=== PATIENT | male | born 1960 | race Caucasian/White ===

== ENCOUNTER 2024-03-07 22:18 | Inpatient (IN) | payer OTHER, SELFPAY ==
[2024-03-07] VITALS (15 sets, daily range): BP systolic 95–140; BP diastolic 74–116; PULSE 2; BMI 30.3; BMI 29.8
--- NOTE | 2024-03-07 20:24 | ED.GENMED ---
History of Present Illness
General
Chief Complaint: Chest Pain
Source: patient
Exam Limitations: none
Time Seen by Provider: 03/07/24 20:20
History of Present Illness
History of Present Illness:
See MDM
Past History
Past History
ED Past Medical History: Arrthythmia (Ventricular tachycardia;? Atrial fibrillation), CAD, CHF, COPD, HTN, Hypercholesterolemia, NIDDM and SC
ED Past Surgical History: Cardiac (Pacemaker)
Social History
Tobacco: Smoker
Alcohol: None
Drug: None
Living: other (living in a hotel for last month)
Employment: Other (unavailable)
Family History
Family History: Other (reviewed and noncontributory)
Phy Exam
Physical Exam
Physical Exam:
See MDM
Scores
Heart Score for Chest Pain Patients
STEMI patient?: No
History: Highly Suspicious
ECG: Significant ST-Depression
Age: >45 - <65 years
Risk Factors: >/= 3 Risk Factors or History of CAD
Troponin: >/= 3 x Normal Limit
Heart Score for Chest Pain Patients: 9
Heart Score Risk: 72.7 % MACE over next 6 weeks
Course
Orders/Labs/Results
Orders:
Orders
03/07/24 Dinner
NPO
Allow oral meds: Yes
Allow clear liquids: Sips of Clears
03/07/24 20:06
Electrocardiogram (*1) Urgent
Reason for Study: Chest Pain
Cardiac Monitoring- Treatment ONCE
EKG- Treatment ONCE
IV Insert/Care/Rem.- Treatment PRN
O2 Therapy [RESP] Urgent
Titrate/Wean O2 to maintain O2 sat greater than (%): 90
Special Instructions: Maintain sats >/=90%
Pulse Ox/spot Check [RESP] Urgent
Quantity: 1
Special Instructions: ON ROOM AIR
03/07/24 20:19
Complete Blood Count/With Diff Urgent
Comprehensive Metabolic Panel Urgent
NT-proBNP Urgent
Comment: ADD ON
Troponin I Urgent
03/07/24 20:23
0.9% Sodium Chloride 500 ml [Nss] 500 ml IV BOLUS
Nitroglycerin Sublingual [Nitrostat (Sublingual)] 0.4 mg SL NOW STA
03/07/24 20:24
CR Chest Portable - 1 View Urgent
Comment:
Reason For Exam: SOB, Chest pain
Reason Study Needs to be Portable: Patient Unstable
03/07/24 20:27
Add On- LAB Urgent
Tests Added?: pro BNP
03/07/24 20:29
PTT Urgent
Prothrombin Time Urgent
03/07/24 20:58
Furosemide [Lasix] 80 mg IV NOW STA
03/07/24 21:27
Bipap [RESP] Urgent
Patient to use own unit?: No
Inspiratory Pressure (cm H2O): 18
Expiratory Pressure (cm H2O): 10
03/07/24 21:35
Admit/Transfer Patient As Directed
Co-Sign Provider:
Level of Care: Inpatient admission
Assign to:: IMU- Intermediate Care
Physician / Group: jony
Diagnosis: chf exacerbation
Reason for Hospitalization: chf exacerbation
Expected length of stay greater than two midnights?: Yes
ELOS- Estimated Length of Stay in days: 2
I certify the patient meets the requirements for IP care: Yes
Code Status As Directed
Resuscitation Status: Full Code
03/07/24 22:51
Troponin I Q6H
Comment: at admission & every 6 hours x 2 (3 total), ECG to be done with each level
Albuterol [ProAIR HFA INHALER] 2 puff INH R Q6HPRN PRN
Atorvastatin [Lipitor] 80 mg PO HS
Dextrose 50%-Water [Dextrose 50% Syringe] 12.5 grams IV [id number] PRN
Glucagon [GlucaGen] 1 mg IM PRN PRN
Melatonin 5 mg PO HS
Nitroglycerin Sublingual [Nitrostat (Sublingual)] 0.4 mg SL [id number] PRN
Tamsulosin [Flomax] 0.4 mg PO HS
insulin glargine [Lantus Solostar U-100 Insulin] 23 unit SC HS
03/07/24 22:51
Echo 2D MMode Color/Doppler Routine
Reason for Study: chf
CARDIOLOGY CONSULT Routine
Consulting Provider: Levi Powers
Was physician already notified: No
Reason for consult: chf
Consult Notification Routine
Specialty to Notify: Cardiology
VTE Contraindication Routine
VTE Mechanical Device Contraindication: Medical Contraindication
Pharmocologic Contraindication: Medical Contraindication
Activity As Directed
Activity Level: As Tolerated
Bedside Glucose Monitoring As Directed
Frequency: AC&HS
Additional Instructions:: Change to q6h if pt on TPN, tube feeding or not eating
Intake/ Output As Directed
Frequency: q12h
Vital Signs As Directed
Frequency: Other
Additional Instructions:: Q12 or per unit guidelines if more frequent.
Weight As Directed
Frequency: Daily
Type of Scale: Standing Scale
Comment: Daily morning weight. If unable to stand, use balanced bed scale.
Weight As Directed
Frequency: Once
Type of Scale: Standing Scale
Comment: Upon Admission. If unable to stand, use balanced bed scale.
Xopenex Reason for Use As Directed
Reason for ordering Xopenex instead of Albuterol: tachy
Pulse Ox/cont/shift [RESP] Routine
Quantity: 1
Special Instructions: Daily pulse oximetry at rest. If greater than 92% at rest also obtain pulse oximetry
while ambulating as tolerated.
03/07/24 23:00
Flush (0.9% Sodium Chloride) [Flush (Nss)] See Dose Instructions IV PER PROTOCOL
Pantoprazole [Protonix] 40 mg PO HS
03/08/24 02:30
Troponin I Q6H
Comment: at admission & every 6 hours x 2 (3 total), ECG to be done with each level
03/08/24 06:00
Complete Blood Count/With Diff IN AM
Comprehensive Metabolic Panel IN AM
Glycohemoglobin (HgbA1c) IN AM
03/08/24 07:30
Insulin Aspart Corrective Low [Novolog Flexpen-Low Resistance] See Protocol SC AC
03/08/24 08:00
Amiodarone [Pacerone] 200 mg PO DAILY
Apixaban [Eliquis] 5 mg PO BID
Aspirin Chewable [Low Strength Aspirin] 81 mg PO DAILY
Bisacodyl [Dulcolax] 5 mg PO DAILY
Budesonide [Pulmicort] 0.5 mg INH R BID
Carvedilol [Coreg] 6.25 mg PO BID
Dapagliflozin [Farxiga] 10 mg PO DAILY
Furosemide [Lasix] 80 mg IV BID AT 0800,1600
ISOSORBIDE MONOnitrate ER [Imdur (Extended Release)] 30 mg PO DAILY
Levalbuterol Tartrate [Xopenex Hfa 45 Mcg Inhaler] 1 puff INH R BID
Metolazone [Zaroxolyn] 2.5 mg PO MoWeFr@0800
03/08/24 08:30
Troponin I Q6H
Comment: at admission & every 6 hours x 2 (3 total), ECG to be done with each level
Abnormal Lab Results
03/07/24 03/07/24
20:19 20:29
WBC 14.0 H 10^3/uL
(4.8-10.8)
RBC 4.09 L 10^6/uL
(4.70-6.10)
Hgb 11.8 L g/dL
(13.0-18.0)
Hct 36.5 L %
(39.0-52.0)
MCHC 32.3 L g/dL
(33.0-37.0)
RDW 14.6 H %
(11.5-14.5)
MPV 11.6 H fL
(7.4-10.4)
Abs Immat Gran (auto) 0.1 H 10^3/uL
(0-0.05)
Absolute Neuts (auto) 12.1 H 10^3/uL
(1.4-6.5)
Absolute Lymphs (auto) 0.7 L 10^3/uL
(1.2-3.4)
Absolute Monos (auto) 0.9 H 10^3/uL
(0.1-0.6)
Neutrophils % 86.6 H %
(42.2-75.2)
Lymphocytes % 5.1 L %
(20.5-51.1)
PT 19.9 H Sec
(11.4-14.6)
Chloride 82 L mmol/L
(98-107)
Carbon Dioxide 39 H mmol/L
(22-30)
BUN 87 H mg/dl
(9-20)
Creatinine 2.1 H mg/dL
(0.7-1.3)
Glucose 254 H mg/dl
(70-99)
Total Bilirubin 1.4 H mg/dl
(0.2-1.3)
Troponin I 0.105 H* ng/ml
03/07/24 20:19
03/07/24 20:19
Vital Signs
Initial and Last Documented VS:
Initial Vital Signs
Temp Pulse Resp BP Pulse Ox
98.1 F 103 20 97/78 97
03/07/24 20:07 03/07/24 20:07 03/07/24 20:07 03/07/24 20:07 03/07/24 20:07
Last Documented Vital Signs
Temp Pulse Resp BP Pulse Ox
97.3 F 101 18 98/81 93
03/07/24 23:01 03/08/24 00:50 03/08/24 00:50 03/08/24 00:50 03/08/24 00:50
MDM/Problems Addressed
Differential Diagnosis Includes:
HPI and MDM Narrative:
63-year-old male presenting with persistent chest pain since 6 AM. Patient believes this could be his heart. He had a pain episode yesterday which was relieved with nitroglycerin. He was weary to take nitroglycerin earlier today because his blood
pressure has been low. Patient states he has had 'multiple stents' and the pacemaker. He took 4 baby aspirin prior to arrival but is on Eliquis routinely for A-fib. Patient is on oxygen at baseline for COPD. He is not an active smoker
On exam patient is uncomfortable. His blood pressure is 90s systolic but given the concern for ACS, will give 1 nitroglycerin and will give 500 mL saline bolus
Physical exam
General: Uncomfortable
HEENT: protecting airway
Neck: appears supple
CV: No evidence of cyanosis. Regular rhythm
Resp: No accessory muscle use. No wheezing noted. Poor air exchange. Questional crackles at bases
Abd: Non-distended
Extremities: Mild pitting edema noted to ankles
Neuro: alert
Psych: Normal affect
Skin: Intact
Problems Addressed including Acute and Chronic Conditions affecting care:
1. Shortness of breath and chest pain
Acuity: acute
Prognosis: unstable
Details: Will obtain chest x-ray looking for evidence of pulmonary edema versus widened mediastinum. Will give dose of sublingual nitroglycerin and provide IV fluids given the hypertension.
Updates
9 PM patient was just started on fluids but chest x-ray concerning for pulmonary edema. The fluids were stopped just as quickly as they were started. Patient given 80 mg of IV Lasix. Troponin is elevated but is at baseline. BNP is drastically
elevated. Given the increased shortness of breath, will place on BiPAP
As the patient was being escorted up to his room, he states he is feeling much better and gave thumbs up.
Differential Diagnosis (but not limited to): Pulmonary edema, ACS
Testing considered: D-dimer but he is on Eliquis
Drug therapy (if applicable): OTC meds, please see d/c instruction regarding Rx drugs
Amount and/or Complexity of Data Reviewed
Clinical info obtained from: Patient
External data reviewed: N/A
Labs I independently reviewed (but not limited to): Elevated troponin but appears to be at baseline. BNP is elevated
Radiology: N/A
Pulse Ox: not hypoxic
EKG independently reviewed: Ventricular paced rhythm, diffuse ST depression which appears to be unchanged from prior. Left axis
Supervisor Assembly Stock: Paced rhythm
Critical Care: The high probability of a clinically significant, sudden or life threatening deterioration of the cardiopulmonary system(s) required my full and direct attention, intervention and personal management. The aggregate critical care time
was 33 minutes. This time is in addition to time spent performing reported procedures but includes the following:
[x] Data Review and interpretation
[x] Patient assessment and monitoring of vital signs
[x] Documentation
[x] Medication orders and management
Risk of Complication:
Social Determinants of health: Good social support
Discussed with other providers: Hospitalist
Escalation of Care includes Admit/Obs: Given the pulmonary edema and increased oxygen requirement, patient requiring BiPAP and will admit
Occasional wrong word or 'sound a like' substitutions may have occurred due to the inherent limitations of voice recognition software. Read the chart carefully and recognize, using context, where substitutions have occurred.
*Critical Care Note
Total Time (30-74mins, 75-104mins- exclusive of procedures): 33 min
ED Attending Note
-
Portions of this chart may have been created with voice recognition software.� Occasional wrong word or��sound alike� substitutions may have occurred due to the inherent limitations of voice recognition software.
Discharge Plan
Departure
Patient Disposition: Admit
Date of Disposition: 03/07/24
Time of Disposition: 21:15
Presentation/result/management discussed w/ accepting MD/DO: Hospitalist
Discharge Problem:
Pulmonary edema
Interventions
Interventions:
*Risk Screen - Suicide Last Done: 03/07/24 20:16
*General Assessment Last Done: 03/07/24 20:16
*Neglect/Abuse Screening Last Done: 03/07/24 20:16
ED- Fall Risk Assessment Last Done: 03/07/24 20:34
*ED COVID-19 Vaccine History Last Done: 03/07/24 20:16
*Nursing Disposition Last Done: 03/07/24 23:00
ED- Cardiac Assessment Last Done: 03/07/24 20:33
Discharge Date and Time
Discharge Date/Time: 03/07/24 23:01
[2024-03-07 20:27] LABS: % Basophils 0.3 % (0-2); % Immature Granulocytes 0.4 % (0-0.5); % Lymphocytes 5.1 % (20.5-51.1); % Monocytes 6.6 % (1.7-9.3); % Neutrophils 86.6 % (42.2-75.2); Absolute Eosinophils 0.1 10^3/uL (0-0.7); Absolute Immature Granulocytes 0.1 10^3/uL (0-0.05); Absolute Lymphocytes 0.7 10^3/uL (1.2-3.4); Absolute Monocytes 0.9 10^3/uL (0.1-0.6); Absolute Neutrophils 12.1 10^3/uL (1.4-6.5); Hematocrit 36.5 % (39.0-52.0); Hemoglobin 11.8 g/dL (13.0-18.0); Mean Corp Hgb Conc. 32.3 g/dL (33.0-37.0); Mean Corpuscular Hgb 28.9 pg (27.0-31.0); Mean Corpuscular Volume 89.2 fL (80.0-94.0); Mean Platelet Volume 11.6 fL (7.4-10.4); Nucleated Red Blood Cells % 0 % (-); Platelet Count 216 10^3/uL (130-400); Red Blood Cell Count 4.09 10^6/uL (4.70-6.10); Red Cell Dist. Width 14.6 % (11.5-14.5)
[2024-03-07] MEDS: NSS 500 IV (20:28)
[2024-03-07] MEDS: NITROSTAT (SUBLINGUAL) 0.4 MG SL (20:30)
[2024-03-07 20:41] LABS: ALT (SGPT) 23 U/L (0-50); AST (SGOT) 23 U/L (17-59); Albumin 4.5 g/dl (3.5-5.0); Alkaline Phosphatase 100 U/L (38-126); Blood Urea Nitrogen 87 mg/dl (9-20); Calcium 9.5 mg/dl (8.4-10.2); Carbon Dioxide 39 mmol/L (22-30); Chloride 82 mmol/L (98-107); Estimated Creatinine Clearance 41 ml/min; Glucose 254 mg/dl (70-99); Potassium 3.5 mmol/L (3.5-5.1); Sodium 135 mmol/L (135-145); Total Bilirubin 1.4 mg/dl (0.2-1.3); Total Protein 7.5 g/dl (6.3-8.2); eGFR 34.93
[2024-03-07 20:50] LABS: APTT 34.7 Sec (23.4-35.0); INR 1.71; PT 19.9 Sec (11.4-14.6)
[2024-03-07 20:55] LABS: NT-proBNP 24400 pg/ml; Troponin I 0.105 ng/ml
[2024-03-07] MEDS: LASIX 80 MG IV (21:05)
--- NOTE | 2024-03-07 21:39 | HPS.HSE ---
Family Physician
-
Family Physician: Bruce Tapia
Chief Complaint
-
shortness of breath
History of Present Illness
63-year-old male past medical history of chronic hypoxic respiratory failure on 4 L baseline, obstructive sleep apnea, permanent atrial fibrillation on Eliquis, severe ischemic cardiomyopathy with EF of 10 to 15%, coronary artery disease, history of
cardiac arrest with ICD, COPD, history of CVA, obesity, CKD 3, diabetes, BPH presenting with shortness of breath ongoing over the past several weeks. He has minimal cough. He denies any fevers or chills. He symptoms of lower extremity edema which
is worse on his left lower extremity at this time. He denies any weight gain or weight loss.
He has intermittently been having chest pain described as pressure involving his right shoulder and left nipple. This pain occurs with exertion, when he lies down flat or breathes. He does have pain currently. He was given nitroglycerin in
emergency room with improvement in pain.
He denies any recent changes to his medications. He takes 80 mg of Lasix twice a day. 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
He denies current smoking. He denies current alcohol use.
Medical History
Past Medical History
Past Medical History: Reports Other (chronic hypoxic respiratory failure on 4 L baseline, obstructive sleep apnea, permanent atrial fibrillation on Eliquis, severe ischemic cardiomyopathy with EF of 10 to 15%, coronary artery disease, history of
cardiac arrest with ICD, COPD, history of CVA, obesity, CKD 3, diabetes, BPH)
Past Surgical History: Reports Other (ICD )
Social History
Tobacco: Former Smoker
Alcohol: None
Drug: None
Family History
Family History: Not pertinent
Allergies / Home Medications
Allergies reflects when Allergies were last updated in [facility].
Home Medications with original date entered in [facility]
Allergy/Medication List:
Allergies
Allergy/AdvReac Type Severity Reaction Status Date / Time
[facility] Allergy Swelling Verified 03/07/24 20:07
[facility] HCl [facility] Allergy Swelling Verified 03/07/24 20:07
Home Medications
apixaban 5 mg tablet (Eliquis) 5 mg PO BID 07/24/21
aspirin 81 mg chewable tablet 81 mg PO DAILY 07/24/21
melatonin 5 mg tablet 5 mg PO HS 07/24/21
nitroglycerin 0.4 mg sublingual tablet 0.4 mg sublingual [id number] PRN chest pain 08/01/21
atorvastatin 80 mg tablet 80 mg PO HS #30 tabs 08/21/21
dapagliflozin propanediol 10 mg tablet (Farxiga) 10 mg PO DAILY #30 tabs 08/21/21
amiodarone 200 mg tablet (Pacerone) 200 mg PO DAILY Arrhythmia 06/03/23
bisacodyl 5 mg tablet 5 mg PO DAILY Constipation 06/03/23
carvedilol 25 mg tablet 25 mg PO BID Blood Pressure 06/03/23
isosorbide mononitrate 60 mg tablet,extended release 24 hr 60 mg PO DAILY Heart Disease/Condition 06/03/23
levalbuterol tartrate 45 mcg/actuation aerosol inhaler 1 puff inhalation R Q6 PRN sob/wheezing 06/03/23
levalbuterol tartrate 45 mcg/actuation aerosol inhaler 1 puff inhalation R Q8 Lung/Breathing Issues 06/03/23
metolazone 2.5 mg tablet 2.5 mg PO MOWEFR Fluid Retention/Swelling 06/03/23
omeprazole 40 mg capsule,delayed release 40 mg PO DAILY Gastrointestinal Issue 06/03/23
revefenacin 175 mcg/3 mL solution for nebulization (Yupelri) 175 mcg inhalation R DAILY Lung/Breathing Issues 06/03/23
tamsulosin 0.4 mg capsule 0.4 mg PO DAILY Urinary Issue 06/03/23
insulin aspart U-100 100 unit/mL (3 mL) subcutaneous pen (Novolog FlexPen U-100 Insulin aspart) 22 unit (0.22 mL) SC AC #5 ea 06/09/23
furosemide 80 mg tablet 80 mg PO DAILY #60 tabs 06/10/23
insulin glargine 100 unit/mL (3 mL) subcutaneous pen (Lantus Solostar U-100 Insulin) 23 unit (0.23 mL) SC HS #5 mL 06/10/23
Review of Systems
-
History Source: Patient
A 12 point ROS was completed and negative except as noted: Yes
Constitutional: Reports No Symptoms
EENT: Reports No Symptoms
Respiratory: Reports See HPI
Cardiac: Reports See HPI
Abdomen/GI: Reports No Symptoms
: Reports No Symptoms
Musculoskeletal: Reports No Symptoms
Skin: Reports No Symptoms
Neurological: Reports No Symptoms
Endocrine: Reports No Symptoms
Hematologic/Lymphatic: Reports No Symptoms
Psych: Reports No Symptoms
Physical Exam
Vital Signs
Vital Signs
Temp Pulse Resp BP Pulse Ox
98.1 F 104 16 113/86 96
03/07/24 20:07 03/07/24 21:05 03/07/24 20:45 03/07/24 21:05 03/07/24 20:45
Physical Exam
General: Well Developed, Well Nourished and No Apparent Distress
HEENT: NormoCephalic, Moist mucous membranes and Atraumatic
Respiratory: Clear
Cardiac: S1/S2 and Regular Rhythm; No Murmur or Rub
GI: Soft, Non Tender, Non Distended and Normal Bowel Sounds; No Organomegaly
Rectal: Deferred by Provider
Musculoskeletal: No Clubbing, No Cyanosis and No Edema
Skin: No Rash
Neuro: Nonfocal/grossly intact
Laboratory Results
-
03/07/24 20:19
03/07/24 20:19
Laboratory Results
PT 19.9 Sec (11.4-14.6) H 03/07/24 20:29
INR 1.71 03/07/24 20:29
APTT 34.7 Sec (23.4-35.0) 03/07/24 20:29
Total Bilirubin 1.4 mg/dl (0.2-1.3) H 03/07/24 20:19
AST 23 U/L (17-59) 03/07/24 20:19
ALT 23 U/L (0-50) 03/07/24 20:19
Alkaline Phosphatase 100 U/L (38-126) 03/07/24 20:19
Troponin I 0.105 ng/ml H* 03/07/24 20:19
Data Reviewed
-
Lab Data: Labs Reviewed by me
Old Records: Reviewed
Impression/Plan
-
IMPRESSION:
PLAN:
# Acute on chronic HFrEF exacerbation
# History of severe ischemic cardiomyopathy
-Patient initially given IV fluids due to blood pressure 90s which was subsequently stopped after further testing indicating heart failure
-Cardiac BNP of 24,000 from 13,000
-Chest x-ray shows mild CHF, trace bilateral pleural effusion
-Check I's and O's, daily weights
-Patient currently on BiPAP, n.p.o. while on BiPAP
-80 IV Lasix to be given if blood pressure tolerates
-Continue 80 IV Lasix twice daily
-Continue metolazone
-Continue Coreg
-Continue Farxiga
-Continue isosorbide mononitrate
-check echo
-cardiology consulted
# CALVIN on CKD 3a likely cardiorenal
-Creatinine 2.1 from 1.3
-Monitor with diuresis
# Chest pain likely secondary to CHF exacerbation
# Nonischemic myocardial injury
-EKG shows ventricular paced rhythm
-Troponin of 0.105 which is close to baseline
-Continue to trend
-As needed nitroglycerin for chest pain
Coronary artery disease with history of multiple stents
-Continue aspirin, statin
Permanent atrial fibrillation
-Continue amiodarone
-Continue Eliquis
History of cardiac arrest with ICD
Chronic hypoxic respiratory failure secondary to ischemic cardiomyopathy/obstructive sleep apnea/COPD
-Baseline 4 L oxygen
-On Trelegy at nighttime
Chronic metabolic alkalosis
-Secondary to COPD
Obstructive sleep apnea
COPD
-Continue inhalers
History of CVA
-continue ASA/statin
#Hyperglycemia
#Type 2 diabetes
-hold glipizide
-Continue Lantus 23 units
-ISS
Chronic anemia
-Hemoglobin stable 11.8
Obesity
BPH
-Continue tamsulosin
GERD
-Continue omeprazole
Full code
DVT prophylaxis�Eliquis
N.p.o. while on BiPAP
[2024-03-07] MEDS: XOPENEX 1.25 MG INHALANT SOLUTION INH (22:56)
[2024-03-07] MEDS: PULMICORT 0.5 MG INH (22:56)
--- NOTE | 2024-03-07 23:17 | PTCARENOTE ---
Received patient from the ED escorted by respiratory on a Bipap 18/10 6 liters. Son at bedside.
[2024-03-07] MEDS: FLOMAX 0.4 MG PO (23:36)
[2024-03-07] MEDS: LIPITOR 80 MG PO (23:36)
[2024-03-07] MEDS: PROTONIX 40 MG PO (23:36)
[2024-03-07] MEDS: LANTUS 0.23 UNITS SC (23:37)
[2024-03-07] MEDS: MELATONIN 5 MG PO (23:37)
[2024-03-07 23:46] LABS: Glucose - Point of Care 252 mg/dl (70-99)
[2024-03-08] VITALS (75 sets, daily range): BP systolic 68–113; BP diastolic 54–94; PULSE 2–124; BMI 29.5
[2024-03-08] MEDS: NOVOLOG FLEXPEN-LOW RESISTANCE 3 UNITS SC (00:02)
[2024-03-08] MEDS: NITROSTAT (SUBLINGUAL) 0.4 MG SL (01:03)
[2024-03-08] MEDS: MORPHINE SULFATE 1 MG IV (01:31)
--- NOTE | 2024-03-08 01:57 | W.PN.UPDATE ---
Update Note
Progress Note Update
-Patient complained of chest pain rated 8/10 of pain scale on the RT side side of the chest and nipples area at the left side of his chest non radiating. He explained that similar to the episode of chest pain in ED.
-V/S (BP 98/67, hr 119, temp 98.1, SPO2 99% on Bipap, RR 16)
-Patient was on Bipap during the exam time.
-Patient received nitro SL PRN, was not effective and pain level is the same, one time order of IV morphine 1mg was placed
-EKG &stat labs ordered. While staff drawing the stat labs, patient complained of nausea, went unresponsive and lost his pulse.
Code 9 was called
-CPR initiated, around 3 mins after patient had a pulse and became responsive with no other interventions.
-Case discussed with the hospitalist and patient transferred to ICU.
-Sister Micheline and daughter Ammy contacted with no answer. Voice mail was left to the daughter to call back.
[2024-03-08 02:05] LABS: % Basophils 0.2 % (0-2); % Eosinophils 0.2 % (0-6); % Lymphocytes 3.7 % (20.5-51.1); % Monocytes 4.5 % (1.7-9.3); % Neutrophils 90.4 % (42.2-75.2); Absolute Immature Granulocytes 0.1 10^3/uL (0-0.05); Absolute Lymphocytes 0.5 10^3/uL (1.2-3.4); Absolute Monocytes 0.6 10^3/uL (0.1-0.6); Absolute Neutrophils 11.6 10^3/uL (1.4-6.5); Hematocrit 34.4 % (39.0-52.0); Hemoglobin 11.3 g/dL (13.0-18.0); Mean Corp Hgb Conc. 32.8 g/dL (33.0-37.0); Mean Corpuscular Hgb 28.9 pg (27.0-31.0); Mean Platelet Volume 11.1 fL (7.4-10.4); Nucleated Red Blood Cells % 0.2 % (-); Platelet Count 211 10^3/uL (130-400); Red Blood Cell Count 3.91 10^6/uL (4.70-6.10); Red Cell Dist. Width 14.8 % (11.5-14.5); White Blood Cell Count 12.9 10^3/uL (4.8-10.8)
[2024-03-08 02:06] LABS: B.E. 13.5 mmol/L; PCO2 59 mmHg (35-48); pH 7.44 (7.35-7.45)
[2024-03-08 02:07] LABS: HCO3 40.1 mmol/L (21-28); O2 Therapy NRBR; PO2 44 mmHg (83-108)
[2024-03-08 02:17] LABS: INR 1.74; PT 20.1 Sec (11.4-14.6)
[2024-03-08 02:18] LABS: APTT 32.7 Sec (23.4-35.0)
[2024-03-08 02:19] LABS: Blood Urea Nitrogen 89 mg/dl (9-20); Calcium 9.5 mg/dl (8.4-10.2); Carbon Dioxide 32 mmol/L (22-30); Chloride 86 mmol/L (98-107); Estimated Creatinine Clearance 38 ml/min; Glucose 226 mg/dl (70-99); Magnesium 2.6 mg/dl (1.6-2.3); Potassium 3.6 mmol/L (3.5-5.1); Sodium 136 mmol/L (135-145); eGFR 37.04
--- NOTE | 2024-03-08 02:21 | PTCARENOTE ---
Rec'd patient from code 9. Patient alert and oriented. EKG obtained- afib RVR. Occasionally paced. Rate in the 110-120's. BP soft. MAP >65. Complaining of cp. Unchanged from prior. Placed back on BiPAP by RT. Settings: 18/10 12L. Crackles in b/l
base. +BS. Condom catheter placed. Discussed plan of care with GENERAL ENGINEERING TEACHER. Awaiting lab results.
--- NOTE | 2024-03-08 02:41 | PTCARENOTE ---
Patient with 8/10 chest pain/pressure. scallop cutter machine provider to bedside to assess patient. Nitro x1 administered without relief. Morphine 1 mg x1 administered without relief. Stat lab orders and ekg placed by provider. After EKG obtained patient stated
that he felt nausea. His HR went up to the 170s vtach, patients eyes rolled back and he became cyanotic and unresponsive. Pulse was lost. CPR initiated and code called. Patient transferred to ICU.
[2024-03-08 02:42] LABS: Troponin I 0.104 ng/ml
--- NOTE | 2024-03-08 03:12 | W.PN.UPDATE ---
Update Note
Progress Note Update
Code called @ 0145 in the IMU.� On arrival, CPR going on, CPR stopped for pulse check and he had pulse. Blood pressure WNL. Patient awake and oriented post CPR. CPR was giving for roughly 3 minutes. No other interventions done during CPR.
According to bedside nurse patient was complaining of chest pain was giving nitro followed by morphine. He became nausea and then�unresponsive and CPR was started.� EKG ordered and labs drawn. EKG revealed afib with intermittent paced beats
concern for ACS. Cardiology updated. Significant labs post event: trop 0.104. House ENVIRONMENTAL ENGINEERING PROFESSOR left message with�family.�
--- NOTE | 2024-03-08 04:03 | PTCARENOTE ---
Dr. Powers at bedside. RN advised to hold am Eliquis and repeat labs at 0600. Pacemaker interrogation in progress.
--- NOTE | 2024-03-08 04:21 | W.PN.CD ---
Addendum entered and electronically signed by Levi Powers MD 03/08/24 09:59:
-
-
ICD interrogated and reprogrammed. Oren Miranda agreed with me that initially AFib but then VT.
-
ICD reprogrammed: VT1 is now at 160 bpm with SVT/AFib discriminators on, 10 sec duration if VT declared will be treated with ATP x2 then max shocks.
LV lead was programmed subthreshold. He has diaphragm stim at most vectors but LV3=>RV coil has about a 1.5 V separation and so we moved to that vector and programmed it 0.6 V above threshold and hope he has no diaphragm stim at that vector.
-
-
-
Addendum entered and electronically signed by Levi Powers MD 03/08/24 08:14:
-
-
Correction: - On Eliquis, [id number] at least 6 (HF, HTN, DM, stroke, vacular disease)
Note AFib is LOW BURDEN PAROXYSMAL. Not permanent.
Original Note:
Today's Communication / Plan
-
Trend troponin
Echo
Early right heart cath
Further ICD interrogation/assessment, likely will have ICD reprogrammed to treat HR 170 bpm
Pulmonary input will be helpful
Impression / Plan
-
Background: 63 y/o male with SEVERE COPD, on home O2, chronic HFrEF, severe ischemic cardiomyopathy, prior WA, CAD (s/p LAD and LCx PCIs and RCA SCREENING NURSE,), hx of CVA, paroxysmal atrial fibrillation, and prior cardiac arrest (08/2022), DM.
Outpatient peanut sorter is Dr. Galloway and his EP doctor is Dr. Flores at [facility]. Has seen Dr. Rodriguez and may transition back to our practice.
Pulmonary: Kemp
Admitted with 20 hrs of CP
- Troponin pattern so far argues against ACS/WA
- Last cath 07/12/2023 led to med rx with chronic 100% pRCA and patent stents and no other obstructive CAD
Cardiac arrest on IMU had arrest with 3 min CPR and no meds/shocks
- On tele he was tachy and regular at close to 170-175 bpm
- ICD interrogation shows he went into AFib perhaps 30 min before his arrest. Initially ICD seemed to call his fast V rate an SVT but later in event he may have gone into a VT at similar rate/morphology. Additional analysis by Oren Sci has been
requested. In any event either fast AF/AT or VT precipiced his arrest.
- EKG abnormal but chronically abnormal, no ST Elevation, ST depression old
Ischemic Cardiomyopathy with chronic HFrEF
- Oren Sci device diagnostics favor heart failure exacerbation but his BUN/Cr could be more c/w dehydration and his CXR is not as bad as it has been in the past in terms of heart failure
- Given his very bad lung disease, his severe LV dysfxn, and his CALVIN I favor an early right heart cath but I anticipate his PCWP will be low, lets see how right/wrong I am => Dr. Rey agreed to perform RHC today
Acute on chronic kidney injury
- The BUN/Cr ratio and favorable CXR suggests that he may be DRY and not volume overloaded
- Cr 1.2 to 1.3 in May 2023
- Cr 2.3 in Jul 2021
SEVERE COPD, follows with Dr. Kemp, on home O2
Hx of VT
Upgraded to BiV ICD at [facility]
Known Chronic CAD, last cath led to med rx 07/12/2023, see below
AFib: NOT PERMANENT: IN SINUS/atrial paced on our EKG here at on 06/04/2023
- Paroxysmal
- On Eliquis, [id number] at least 5 (HF, HTN, DM, stroke, vacular disease)
- On AMIO, presumably for VT and AFib
Prior CVA
Ambulatory dysfunction/Chronic pain, knees, hips, walks with a walker
Hx HTN
Subjective:
Since CPR/chest compressions his CP has worsened
Data:
Cath 07/12/2023 ([facility]): R dom, 100% pRCA, filled by L>R collaterals, patent long stent pLCx, patent long stent mLAD. LVEDP 8, no
LE arterial WAQAR 04/28/2023: Normal WAQAR bilateral
Graciela Nuc stress 04/16/2023: LV SEVERELY dilated, LVDV 594 ml, LVSV 571 ml, calculated LVEF 4%. Large fixed defects: mid to distal anterior wall, apex, and mid to distal inf wall, minimal reversible, thinning inferobasal wall
Echo 01/05/2023: LV severely dilated, LVEF 20-25%, RV normal size/function, minimal AoV sclerosis, mild AR/MR, mild LAE, est PASP normal, IVC normal
Our last ICD check 01/21/2022: at that time a dual ICD, no recent AFib, no recent VT, AP 26%, TUBE BUILDER 2%.. PAF, 2 episodes, longest 6 hrs, seen on check from 02/2019
Pulmonary Office Note: Follows with Bernard Kemp MD. Known SEVERE COPD
Spirometry 10/14/2023: FEV1/FVC 35%, FEV1 0.58 L-70%, FVC 1.64 L (36%.� Very severe airflow obstruction with a restriction.
DLCO 09/16/2020: 7.64; 27%
Physical Exam
Vital Signs/Labs
Vital Signs
Temp Pulse Resp BP Pulse Ox
98.1 F 120 17 81/72 99
03/08/24 02:10 03/08/24 04:00 03/08/24 04:00 03/08/24 04:00 03/08/24 04:00
03/06/24 03/07/24 03/08/24
06:59 06:59 06:59
Actual Weight 90.7 kg
03/08/24 01:53
PT 20.1 Sec (11.4-14.6) H 03/08/24 01:57
INR 1.74 03/08/24 01:57
APTT 32.7 Sec (23.4-35.0) 03/08/24 01:57
Magnesium 2.6 mg/dl (1.6-2.3) H 03/08/24 01:53
Magnesium Cancelled 03/08/24 01:53
03/07/24
20:19
[id number] Pept [id number]
LAB Results
03/07/24 03/08/24
20:19 01:53
Troponin I 0.105 H* 0.104 H*
Data Reviewed
-
Date of Service: March 08, 2024
[2024-03-08] MEDS: DILAUDID 0.25 MG IV (05:27)
[2024-03-08 05:50] LABS: Glucose - Point of Care 235 mg/dl (70-99)
[2024-03-08] MEDS: NOVOLOG FLEXPEN-LOW RESISTANCE 2 UNITS SC ×2 (05:50→12:04)
[2024-03-08 06:34] LABS: Troponin I 0.115 ng/ml
[2024-03-08 06:37] LABS: Blood Urea Nitrogen 93 mg/dl (9-20); Calcium 9.3 mg/dl (8.4-10.2); Carbon Dioxide 36 mmol/L (22-30); Chloride 86 mmol/L (98-107); Estimated Creatinine Clearance 38 ml/min; Glucose 209 mg/dl (70-99); Potassium 3.6 mmol/L (3.5-5.1); Sodium 136 mmol/L (135-145); eGFR 37.04
--- NOTE | 2024-03-08 06:41 | PTCARENOTE ---
Plan of care discussed with Dr. Powers. Cardiac cath this am. Pt updated.
--- NOTE | 2024-03-08 07:10 | CON.INTV ---
Consultation
Consultation Request
Date/Time Consultation Requested: 03/08/24
Date/Time Consultation Performed: 03/08/24
Performing Provider: Sonny
Reason for Consultation: ICU
Medical History
-
History of Present Illness:
Patient is a 63-year-old male with previous history of ischemic cardiomyopathy 10%, chronic heart failure with reduced EF, recurrent VT, severe COPD, noncompliance presenting to for intermittent chest pain involving his right shoulder and left
nipple, associated dyspnea on exertion, orthopnea and admitted 03/07/2024. Was given a dose of nitroglycerin in the ER with 80 mg of Lasix. Overnight, chest pain worsening now 8/10, placed on BiPAP at nighttime. Pain is unrelieved by sublingual
nitro, IV morphine was given. Patient then developed acute onset of nausea and unresponsiveness. Code 9 was called, CPR initiated for 3 minutes total with return to spontaneous circulation. He was then transferred to ICU for further management.
Past Medical History
Past Medical History: Other (see list below)
Social History
Tobacco: Smoker
Alcohol: None
Drug: None
Family History
Family History: Reviewed & Not Pertinent
Allergies / Home Medications
Allergies
Allergy/AdvReac Type Severity Reaction Status Date / Time
cimetidine [From Tagamet] Allergy Swelling Verified 03/07/24 20:07
cimetidine HCl [From Tagamet] Allergy Swelling Verified 03/07/24 20:07
Home Medications
�Medication �Instructions �Recorded �Confirmed �Last Taken �Type
apixaban 5 mg tablet (Eliquis) 5 mg PO BID 07/24/21 03/07/24 03/07/24 Rx
aspirin 81 mg chewable tablet 81 mg PO DAILY 07/24/21 03/07/24 03/07/24 Rx
melatonin 5 mg tablet 5 mg PO HS 07/24/21 03/07/24 03/05/24 Rx
nitroglycerin 0.4 mg sublingual 0.4 mg sublingual [id number] PRN 08/01/21 03/07/2424 History
tablet chest pain
atorvastatin 80 mg tablet 80 mg PO HS #30 tabs 08/21/21 03/07/24 03/06/24 Rx
dapagliflozin propanediol 10 mg 10 mg PO DAILY #30 tabs 08/21/21 03/07/24 03/07/24 Rx
tablet (Farxiga)
amiodarone 200 mg tablet (Pacerone) 200 mg PO DAILY Arrhythmia 06/03/23 03/07/24 03/07/24 History
bisacodyl 5 mg tablet 5 mg PO DAILY Constipation 06/03/23 03/07/24 Unknown History
levalbuterol tartrate 45 1 puff inhalation R BID 06/03/23 03/07/24 03/07/24 History
mcg/actuation aerosol inhaler Lung/Breathing Issues
metolazone 2.5 mg tablet 2.5 mg PO MOWEFR Fluid 06/03/23 03/07/24 03/06/24 History
Retention/Swelling
omeprazole 40 mg capsule,delayed 40 mg PO HS Gastrointestinal Issue 06/03/23 03/07/24 03/06/24 History
release
revefenacin 175 mcg/3 mL solution 175 mcg inhalation R DAILY 06/03/23 03/07/24 03/06/24 History
for nebulization (Yupelri) Lung/Breathing Issues
tamsulosin 0.4 mg capsule 0.4 mg PO HS Urinary Issue 06/03/23 03/07/24 03/06/24 History
insulin glargine 100 unit/mL (3 23 unit (0.23 mL) SC HS #5 mL 06/10/23 03/07/24 Unknown Rx
mL) subcutaneous pen (Lantus
Solostar U-100 Insulin)
albuterol sulfate 90 mcg/actuation 2 puff inhalation R Q6HPRN PRN sob 03/07/24 03/07/24 03/07/24 History
aerosol inhaler
budesonide 0.5 mg/2 mL suspension 0.5 mg inhalation R BID 03/07/24 03/07/24 03/07/24 History
for nebulization
carvedilol 6.25 mg tablet 6.25 mg PO BID 03/07/24 03/07/24 03/06/24 History
fluticasone propionate 50 2 spray intranasal DAILY 03/07/24 03/07/24 03/07/24 History
mcg/actuation nasal
spray,suspension
furosemide 80 mg tablet 80 mg PO BID 03/07/24 03/07/24 03/07/24 History
glipizide 5 mg tablet 5 mg PO DAILY 03/07/24 03/07/24 03/07/24 History
isosorbide mononitrate 30 mg 30 mg PO DAILY 03/07/24 03/07/24 03/06/24 History
tablet,extended release 24 hr
Review of Systems
-
History Source: Patient
All other systems: Negative unless noted
Vitals / Labs / Diagnostic Testing
Vital Signs
Temp Pulse Resp BP Pulse Ox
98.1 F 96 16 83/69 95
03/08/24 02:10 03/08/24 06:30 03/08/24 06:30 03/08/24 06:30 03/08/24 06:30
Lab Data
03/08/24 01:53
03/08/24 06:00
Laboratory Results
03/07/24 03/08/24 03/08/24
20:29 01:56 01:57
PT 19.9 H 20.1 H
INR 1.71 1.74
APTT 34.7 32.7
pH 7.44
pCO2 59 H
pO2 44 L*
HCO3 40.1 H*
O2 Delivery Level Nrbr
Diagnostic Testing:
Physical Exam
-
HEENT: Normocephalic, Anicteric and Moist Mucous Membranes
Cardiovascular: S1/S2, Regular Rhythm and Peripheral Edema
Respiratory: Clear (overall decreased BS), Non-Labored Respirations and Other (on BIPAP)
GI: Soft, Distended (protuberant/obese) and Non Tender
Neurology: Awake, Alert, Oriented, AO x 3 and No Motor Deficits
Skin: Warm, Dry and Good Color
General: Comfortable
Assessment
-
Patient is a 63-year-old male with previous history of ischemic cardiomyopathy 10%, chronic heart failure with reduced EF, recurrent VT, severe COPD, noncompliance presenting to for intermittent chest pain involving his right shoulder and left
nipple, associated dyspnea on exertion, orthopnea and admitted 03/07/2024. Was given a dose of nitroglycerin in the ER with 80 mg of Lasix. Overnight, chest pain worsening now 04/22, placed on BiPAP at nighttime. Pain is unrelieved by sublingual
nitro, IV morphine was given. Patient then developed acute onset of nausea and unresponsiveness. Code 9 was called, CPR initiated for 3 minutes total with return to spontaneous circulation. He was then transferred to ICU for further management.
PEA/Cardiac arrest s/p CPR/ROSC, downtime 3 mins
Chest pain r/o ACS, 04/22
Mild leukocytosis
CALVIN, creatinine 2.1 (baseline 1.2�1.3)
Acute on chronic heart failure exacerbation, proBNP 24,400
Chronic hypercarbic respiratory failure, ABG 7.44/59/44
End stage cardiomyopathy
End stage COPD/stage IV
Conditions present prior to admission
Very severe COPD/emphysema
FEV1 0.82/22%, September 2020
Recent hospitalizations [id number] smoker, ongoing
Syncope, VT on amiodarone therapy
Chronic HFrEF
Ischemic cardiomyopathy, EF 10%
VT/PEA Code, prolonged CPR for 20 minutes 2020
CAD with multiple stents
Atrial fibrillation on Eliquis
History of VDRF, multiple intubations in the past
History of anemia
History of left cerebellar CVA
Chronic hypercarbia likely LOREN/OHS
Obstructive sleep apnea, noncompliant with BIPAP therapy
Secondary Polycythemia-- baseline hemoglobin 17-18 secondary to chronic hypoxemia
Hypertension
Hyperlipidemia
Diabetes
History of hemorrhagic gastritis January 2014
Questionable history of 'embolism' 2009, per pt (without obvious treatment, details unclear)
History of noncompliance[facility]
Plan
No current signs of metabolic encephalopathy or MS changes/following commands
Denies pain at this time.
Pain/sedation: PRN, hold sedation
RASS goals: 0
s/p cardiac arrest
Hemodynamically stable, not requiring pressors.
Cardiac history reviewed-- extensive end stage CM history with ICD and recurrent VT
Interrogation planning
Repeat ECHO, RHC today
Appreciate cards recs, discussed plan of care with team
Prior ECHO reviewed (2020) indicating EF 10-15%, stage III DD, moderate PH
Oxygen needs: on BIPAP, noted to be on home O2
Prior history of lung disease: severe COPD, last FEV1 0.6L (19%)
He meets criteria for end stage COPD/stage IV
Supplemental O2 as indicated to maintain sats > 89%
CXR/CT reviewed indicating NAD
NPO, resume diet when able
Psychiatric Security Nurse recommendations
Aspiration precautions, HOB > 30 degrees
Speech therapy eval can be considered if at elevated risk
GI prophylaxis if indicated for mechanical ventilation >48 hours, prior history of GERD, stress ulcer formation in the critically ill
CALVIN present creatinine 2.1 (baseline 1.2�1.3)
CKD history
Void trials
Follow urine output, critical I/Os
Replete electrolytes as needed
No signs/symptoms suspicious for infectious etiology at this time
Observe off antibiotics for now
Follow fever trend, WBC count
CBC stable, no signs of bleeding or coagulopathy.
Taking Eliquis at home for Afib, can resume
DVT prophylaxis as assessed based on risk, including mechanical SCDs
Can transfuse if indicated for Hb <7, plt < 10
INR WNL
H/o diabetes, can continue on home meds, SS for coverage
HbA1c 14%
Poorly controlled, will need to adjust insulin based on need
Diabetic diet, noncompliance noted
Poor prognosis overall, I had a conversation with patient in regards to prognosis and he is not ready for hospice. He did state that if he should suffer catastrophic neurologic injury with any future arrests he would not want to be prolonged on the
vent and would then be open to comfort measures. He does not have a living will, he states his daughter does understand his wishes.
He remains full code.
Diagnostic Data
CXR 08/02/2021: ET tube appropriate. Patchy bilateral infiltrate, pulmonary edema
CT chest 08/15/20: Prior 9 mm groundglass right upper lobe nodule resolved. No new nodules per report. Moderate emphysema, left upper lobe bleb
ECHO 07/17/21- Left ventricle is severely dilated. Severely reduced left ventricular systolic function. Global hypokinesis. Top normal LV wall thickness. Left ventricular ejection fraction is 10-15% by visual estimate. Stage III diastolic
dysfunction suggestive of restrictive filling pattern and increased filling pressures. Normal right ventricular size and function. Device wire seen in right ventricle.
Biatrial dilation, left > right. Mild aortic regurgitation. Mild mitral regurgitation. The IVC is dilated and does not collapse. Right atrial pressure is estimated at 12 mmHg.
Mild pulmonary hypertension. PASP estimated at 49 mmHg. Compared to previous echo, the aorta does not appear dilated. There is now severe, stage 3 diastolic dysfunction.
TTE 05/28/20: EF 15-20%, mild MR/TR, global hypokinesis. Mild pulmonary hypertension, PASp 40
Resting nuclear 2013: EF 14%, multivessel scar
Spirometry 06/07/23: FEV1 0.64L 19%, FVC 1.72L 39%, ratio 37. Post FEV1 0.74L 22% +BD response in FVC (very severe obstruction)
September 2020: Severe obstructive lung disease. FEV1 0.82/22%
Nocturnal oximetry 06/13/14:24 minutes with saturation less than 88%
Reports and relevant images were personally reviewed.
-----
Critical Care time 76 mins -- The patient is admitted for acute critical illness for the treatment of vital organ failure and/or prevention of further life-threatening conditions. Total care includes time spent in review of history (review of prior
records), physical exam, medications, hemodynamic/ventilator parameters, laboratory data, imaging and discussion with house staff, pharmacy, respiratory therapy, echocardiography tech, and nursing.
[2024-03-08] MEDS: PACERONE 200 MG PO (07:28)
[2024-03-08] MEDS: IMDUR (EXTENDED RELEASE) 30 MG PO (07:28)
[2024-03-08] MEDS: DULCOLAX PO (07:29)
[2024-03-08] MEDS: COREG 6.25 MG PO ×2 (07:29→20:39)
[2024-03-08] MEDS: LOW STRENGTH ASPIRIN 81 MG PO (07:30)
[2024-03-08] MEDS: FARXIGA 10 MG PO (07:30)
--- NOTE | 2024-03-08 07:30 | PTCARENOTE ---
Received pt on BiPAP 18/10 with 4 liters oxygen. Code cart remains at the bedside, defibrillator pads on pt's chest. He awakened to RN entering the room. Lips cyanotic, extremities cool and mottled. He is alert, good historian. Right FA & Right AC
20g protective catheters flushed and patent, both with blood return. Good radial pulses, Doppler DP/PT pulses. Left L/E with +3 pitting edema, right L/E with +1 ankle edema. Diminished breath sounds. Orthopnea. Pt with activity intolerance and very
anxious. He was informed of the plan of care, regarding right heart catheterization. He was able to take his medications without difficulty. Unable to keep BiPaP mask of despite 4 liters nasal cannula being placed on the pt. He refused to brush his
teeth or for RN to provide mouth care.
[2024-03-08] MEDS: ZAROXOLYN 2.5 MG PO (07:32)
--- NOTE | 2024-03-08 07:48 | W.PN.HOSP.TC ---
Today's Communication/Plan
-
Nephrology consult
Yan catheter
Right heart catheterization
Assessment / Plan
Assessment / Plan
Gen-AAOx3, NAD, BiPAP mask
HEENT-NC, AT, anicteric, clear oral mm
Neck-supple
CV-reg, no M, +S1/S2, tender anterior chest to palpation
Lungs-clear B/L
Abd-soft, NT, ND
Ext-left pedal edema
Musculoskeletal-no cyanosis, clubbing
Skin-warm and dry
Neuro-grossly non-focal
Psych-calm, cooperative
In-hospital cardiac arrest -March 07 evening. Required 3 minutes of CPR then had ROSC. Defibrillator did not fire as his threshold is 180 bpm. Cardiology believes that either fast AF/AT or VT precipitated his arrest. [employer] to do
additional ICD interrogation.
Acute on chronic hypoxic/hypercapnic respiratory failure -likely multifactorial etiology including COPD, questionable heart failure, other. Currently on BiPAP, wean down as able.
Chest x-ray not significantly impressive but read as mild heart failure.
Patient uses a home ventilator at nighttime, 4 to 6 L of nasal cannula oxygen during the day.
Presumed acute on chronic heart failure with reduced EF exacerbation -diagnosis is not confirmed. Awaiting right heart catheterization today. He is on furosemide 80 mg twice daily at home. Currently on 80 mg IV twice daily.
Troponin elevation -likely acute nonischemic myocardial injury. Last troponin was 0.115, repeat pending.
BiV ICD
CALVIN on CKD 3A -creatinine 2.0 today[address] Un[address]. Place Yan catheter. Consult nephrology.
COPD without exacerbation
History of stroke
Paroxysmal atrial fibrillation -on chronic amiodarone, Eliquis.
DM2 with hyperglycemia -hemoglobin A1c 14% last year, will recheck. At home, he is on glipizide 5 mg daily, Farxiga 10 mg daily, Lantus 23 units at bedtime. Patient received 23 units of Lantus last night, glucose 209 this morning. Currently
n.p.o. for right heart cath. Continue low resistance aspart corrective scale.
LOREN
Full code -discussed with patient, he wants to remain a full code.
Anticipated Discharge: > 48 hours
Subjective/Interval History
-
Date of Service: March 08, 2024
Patient seen and examined. Complaining of chest pain, shortness of breath.
Objective Data
-
Labs:
Laboratory Results
03/07/24 03/07/24 03/08/24
20:19 20:29 01:53
WBC 14.0 H Cancelled
Hgb 11.8 L
Hct 36.5 L
Plt Count 216
PT 19.9 H
INR 1.71
APTT 34.7
HCO3
Sodium 135
Potassium 3.5
Chloride 82 L
Carbon Dioxide 39 H
BUN 87 H
Creatinine 2.1 H
Glucose 254 H
Calcium 9.5
Total Bilirubin 1.4 H
AST 23
ALT 23
Alkaline Phosphatase 100
03/08/24 03/08/24 03/08/24
01:53 01:53 01:53
WBC 12.9 H
Hgb Cancelled 11.3 L
Hct Cancelled 34.4 L
Plt Count Cancelled
PT
INR
APTT
HCO3
Sodium
Potassium
Chloride
Carbon Dioxide
BUN
Creatinine
Glucose
Calcium
Total Bilirubin
AST
ALT
Alkaline Phosphatase
03/08/24 03/08/24 03/08/24
01:53 01:56 01:57
WBC
Hgb
Hct
Plt Count 211
PT 20.1 H
INR 1.74
APTT 32.7
HCO3 40.1 H*
Sodium 136
Potassium 3.6
Chloride 86 L
Carbon Dioxide 32 H
BUN 89 H
Creatinine 2.0 H
Glucose 226 H
Calcium 9.5
Total Bilirubin
AST
ALT
Alkaline Phosphatase
03/08/24 03/08/24
05:57 06:00
WBC
Hgb
Hct
Plt Count
PT
INR
APTT
HCO3
Sodium 136 Cancelled
Potassium 3.6 Cancelled
Chloride 86 L Cancelled
Carbon Dioxide 36 H Cancelled
BUN 93 H Cancelled
Creatinine 2.0 H Cancelled
Glucose 209 H Cancelled
Calcium 9.3 Cancelled
Total Bilirubin Cancelled
AST Cancelled
ALT Cancelled
Alkaline Phosphatase Cancelled
Vital Signs:
Vital Signs
Temp Pulse Resp BP Pulse Ox
98.1 F 103 16 92/79 95
03/08/24 02:10 03/08/24 07:32 03/08/24 06:30 03/08/24 07:32 03/08/24 06:30
I&O
03/07/24 03/08/24 03/09/24
06:59 06:59 06:59
Output Total 625 / 625
Balance -625 / -625
Review of Systems
-
History Source: Patient
All other systems: Reviewed and negative
[2024-03-08] MEDS: XOPENEX HFA 45 MCG INHALER 1 PUFF INH (07:58)
[2024-03-08] MEDS: PULMICORT 0.5 MG INH ×2 (07:58→19:35)
[2024-03-08] MEDS: LASIX 80 MG IV ×2 (08:30→16:26)
[2024-03-08] MEDS: ATIVAN 0.5 MG PO (09:19)
--- NOTE | 2024-03-08 09:30 | PTCARENOTE ---
Pt's daughter Ammy called from pt's room. She was updated regarding the events overnight, interventions and her father's current clinical condition. She also is aware that [employer] are currently at the bedside adjusting settings to
minimize pt feeling a 'thumping' on the left side of his chest. Pt given Ativan at this time as well. He is extremely anxious. Report give to Ki in the crime lab analyst and will be able to place Yan catheter in the lab at the pt's request. Pt is aware
of this plan. He is relieved. Safe environment maintained.
--- NOTE | 2024-03-08 10:58 | ITS.CL.CATH ---
Manager Programming - Catheterization
Cardiac Catheterization
Procedure Report:
RIGHT HEART CATHETERIZATION
Date of Procedure: March 08, 2024
Referring: Dr. Levi Powers
Indication: 63-year-old male with a complex past medical history including ischemic cardiomyopathy status post BiV ICD placement and severe COPD who is referred for a right heart catheterization after an aborted cardiac arrest to evaluate filling
pressures.
ACCESS: The patient was prepped and draped in usual sterile fashion. A 6 Chinese sheath was then placed in the right brachial vein using the same technique.
HEMODYNAMIC FINDINGS (mmHg):
RA(a,v,m): 29, 29, 27
RV(s/d,EDP): 64/21, 28
PA(s/d/m): 66/46, 53
PCWP(a,v,m): 47, 48, 44
PA: 35% on BiPAP with 2 L of oxygen by nasal cannula
LV: 94% on BiPAP with 2 L oxygen by nasal cannula
Cardiac Output/Index (l/min / l/min/m2):
Estimated Maria E Method: 2.8 /1.4
Fluoroscopy Time (min): 2.9
Radiation Dose (mGy): 103
DAP (Gy.cm2): 10.3
Closure device: None. Hemostasis achieved with manual pressure at the brachial site.
Complications: None
ASSESSMENT:
1: Severely elevated pulmonary pressures with markedly elevated left ventricular filling pressures and low cardiac index/cardiac output.
CONCLUSIONS and RECOMMENDATIONS:
1: Continue aggressive ICU care with ongoing diuresis. Discussed with Dr. Powers.
Zeeshan Dias M.D.
--- NOTE | 2024-03-08 11:10 | PTCARENOTE ---
Arrived from qc lab technician via bed on BiPaP 18/10 with 2 liters oxygen. Right brachial dressing CDI. Indwelling catheter placed in the qc lab technician secured to right inner thigh. 425ml dom urine drained thus far. He is 100% AV paced in the 90's. Remains
orthopneic. He is aware that the plan is to aggressively diurese. Safe environment maintained.
[2024-03-08] MEDS: LIDOCAINE URO-JET 2% 1 SYRINGE TOPICAL (11:58)
[2024-03-08] MEDS: ELIQUIS 5 MG PO ×2 (11:59→20:39)
[2024-03-08] MEDS: ELIQUIS PO (11:59)
[2024-03-08 12:14] LABS: Glucose - Point of Care 213 mg/dl (70-99)
[2024-03-08] MEDS: TYLENOL 650 MG PO (13:10)
--- NOTE | 2024-03-08 14:10 | PTCARENOTE ---
Pt expelled large amount of flatus. PM care provided. Partial bath with CGH cloths, Sacrum blanchable red, skin barrier applied and optifoam gently dressing applied. Bilateral heels pink, dry skin, skin barrier applied, adhesive foam dressings
applied. Repositioned with pillow on his right side. Breath sounds dim throughout.
--- NOTE | 2024-03-08 14:16 | W.CON.NEPH ---
Consultation
-
Date/Time Consultation Requested: 03/08 7:53AM
Date/Time Consultation Performed: 03/08 2:17PM
Requesting Provider: Jimbo Fabian
Performing Provider: Teri Lepe
Reason for Consultation: CALVIN
Medical History
-
Chief Complaint: CALVIN
History of Present Illness:
Mr. Darby is a 63YOM with PMH of chronic hypoxic respiratory failure (typically on 4L O2 at baseline), LOREN, Afib (managed with eliquis), ischemic cardiomyopathy (known EF of 10-15%), CAD, hx of cardiac arrest with ICD in place, COPD, obesity,
diabetes, CKD, BPH who presented to the hospital for SOB, worse over the past few days. He states that he also had some chest pain associated. Both SOB and chest pain are worse with exertion and when he lies flat. He endorses some swelling of his
LLE. No fevers/chills at home. No recent change to medications.
Reviewing his Cr trends, his last known baseline appears to be around 1.3. Cr peaked at 2.1 yesterday, down to 2.0 today. Has not noticed any change in urination or trouble with urination.
Past Medical History
chronic hypoxic respiratory failure on 4 L baseline
obstructive sleep apnea
permanent atrial fibrillation on Eliquis
severe ischemic cardiomyopathy with EF of 10 to 15% - on lasix 80mg BID
coronary artery disease
history of cardiac arrest with ICD
COPD
history of CVA
obesity
CKD 3
diabetes
BPH - on tamsulosin
Past Medical History: Other
Past Surgical History: Other (ICD placement)
Social History
Tobacco: Former Smoker
Alcohol: None
Drug: None
Family History
Family History: Not Pertinent
Allergies / Home Medications
Allergy/AdvReac Type Severity Reaction Status Date / Time
cimetidine [From Tagamet] Allergy Swelling Verified 03/07/24 20:07
cimetidine HCl [From [facility]] Allergy Swelling Verified 03/07/24 20:07
�Medication �Instructions �Recorded �Confirmed �Type
apixaban 5 mg tablet (Eliquis) 5 mg PO BID 07/24/21 03/07/24 Rx
aspirin 81 mg chewable tablet 81 mg PO DAILY 07/24/21 03/07/24 Rx
melatonin 5 mg tablet 5 mg PO HS 07/24/21 03/07/24 Rx
nitroglycerin 0.4 mg sublingual 0.4 mg sublingual [id number] PRN 08/01/21 03/07/24 History
tablet chest pain
atorvastatin 80 mg tablet 80 mg PO HS #30 tabs 08/21/21 03/07/24 Rx
dapagliflozin propanediol 10 mg 10 mg PO DAILY #30 tabs 08/21/21 03/07/24 Rx
tablet (Farxiga)
amiodarone 200 mg tablet (Pacerone) 200 mg PO DAILY Arrhythmia 06/03/23 03/07/24 History
bisacodyl 5 mg tablet 5 mg PO DAILY Constipation 06/03/23 03/07/24 History
levalbuterol tartrate 45 1 puff inhalation R BID 06/03/23 03/07/24 History
mcg/actuation aerosol inhaler Lung/Breathing Issues
metolazone 2.5 mg tablet 2.5 mg PO MOWEFR Fluid 06/03/23 03/07/24 History
Retention/Swelling
omeprazole 40 mg capsule,delayed 40 mg PO HS Gastrointestinal Issue 06/03/23 03/07/24 History
release
revefenacin 175 mcg/3 mL solution 175 mcg inhalation R DAILY 06/03/23 03/07/24 History
for nebulization (Yupelri) Lung/Breathing Issues
tamsulosin 0.4 mg capsule 0.4 mg PO HS Urinary Issue 06/03/23 03/07/24 History
insulin glargine 100 unit/mL (3 23 unit (0.23 mL) SC HS #5 mL 06/10/23 03/07/24 Rx
mL) subcutaneous pen (Lantus
Solostar U-100 Insulin)
albuterol sulfate 90 mcg/actuation 2 puff inhalation R Q6HPRN PRN sob 03/07/24 03/07/24 History
aerosol inhaler
budesonide 0.5 mg/2 mL suspension 0.5 mg inhalation R BID 03/07/24 03/07/24 History
for nebulization Lung/Breathing Issues
carvedilol 6.25 mg tablet 6.25 mg PO BID Blood Pressure 03/07/24 03/07/24 History
fluticasone propionate 50 2 spray intranasal DAILY Allergies 03/07/24 03/07/24 History
mcg/actuation nasal
spray,suspension
furosemide 80 mg tablet 80 mg PO BID Fluid 03/07/24 03/07/24 History
Retention/Swelling
glipizide 5 mg tablet 5 mg PO DAILY Diabetes 03/07/24 03/07/24 History
isosorbide mononitrate 30 mg 30 mg PO DAILY Heart 03/07/24 03/07/24 History
tablet,extended release 24 hr Disease/Condition
Review of Systems
-
History Source: Patient
Constitutional: Fatigue
Respiratory: Trouble Breathing
Cardiac: Chest Pain
Musculoskeletal: Edema
Physical Exam
Vital Signs
Vital Signs
Temp Pulse Resp BP Pulse Ox
97.9 F 98 17 113/82 93
03/08/24 13:58 03/08/24 13:45 03/08/24 13:45 03/08/24 13:45 03/08/24 13:58
Lab Results
WBC 12.9 10^3/uL (4.8-10.8) H 03/08/24 01:53
WBC Cancelled 03/08/24 01:53
RBC 3.91 10^6/uL (4.70-6.10) L 03/08/24 01:53
RBC Cancelled 03/08/24 01:53
Hgb 11.3 g/dL (13.0-18.0) L 03/08/24 01:53
Hgb Cancelled 03/08/24 01:53
Hct 34.4 % (39.0-52.0) L 03/08/24 01:53
Hct Cancelled 03/08/24 01:53
Plt Count 211 10^3/uL (130-400) 03/08/24 01:53
Plt Count Cancelled 03/08/24 01:53
Sodium Cancelled 03/08/24 06:00
Potassium Cancelled 03/08/24 06:00
Chloride Cancelled 03/08/24 06:00
Carbon Dioxide Cancelled 03/08/24 06:00
BUN Cancelled 03/08/24 06:00
Creatinine Cancelled 03/08/24 06:00
eGFR Cancelled 03/08/24 06:00
Glucose Cancelled 03/08/24 06:00
Calcium Cancelled 03/08/24 06:00
Ctq-M-Inmwbacbdkl Pept 87490 pg/ml 03/07/24 20:19
Albumin Cancelled 03/08/24 06:00
Physical Exam
General: AOx3, Nontoxic and Other (BiPAP machine in place)
HEENT: PERRL, EOMI, Anicteric, Conjunctivae Clear, Ear/Nose Intact, Hearing Normal, Dentition Intact, Facial Symmetry, Trachea Midline and Other (+JVD)
Respiratory: Crackels
Cardiac: S1/S2, Regular Rate/Rhythm and Edema
Breast: N/A
Abdomen: Soft, Nontender and Other (distended)
Rectal: Deferred by Provider
Genito-urinary: Clear Urine
Musculoskeletal: No Clubbing and No Cyanosis
Skin: No Rash, Warm, Dry, No Clubbing, No Cyanosis, Normal Turgor and No Bruising
Neuro: Nonfocal/Grossly Intact
Hematologic/Lymphatic: No Cervical Lymphadenopathy
Psych: Mood/afflect pleasant, Insight/judgement good and Appropriate
Data Reviewed
-
Radiology: Image Personally Visualized and interpreted (bilateral pelural effusions)
Medical Tests (Nuc Med, Echo etc): Report Reviewed by me (cardiac cath with markedly elevated LV filling pressures and low cardiac index/output)
Labs: Labs Reviewed by me, Discussed with Physician, Discussed with Nurse and Discussed with Patient
Old Records: Reviewed
Assessment/Plan
-
Assessment:
CALVIN on CKD (bl Cr 1.3)
s/p cardiac arrest on 03/07 evening
acute on chronic hypoxic/hypercapnic resp failure
COPD
hx of stroke
pAfib
T2DM
Plan:
- in the setting of arrest and significant cardiac disease my top differentials are ATN and cardiorenal
- agree with diuretics per cardiology (80IV BID noted -- might need lasix gtt but will monitor UOP).
- if alkalosis worsens, could consider acetazolamide
- please obtain UA, urine sodium, urine Cr
- obtain KUS
- please place on a FR of 40oz
- continue to trend Cr/lytes
- accurate I/Os. please maintain lao
- daily weights
[2024-03-08] MEDS: ROXICODONE 2.5 MG PO ×2 (14:25→22:14)
--- NOTE | 2024-03-08 14:38 | CM ---
CM following re: discharge planning.
Reviewed pt's chart, met with pt.
Pt is a 63 year old male, admitted with primary dx of s/p cardiac arrest
Pt reports he lives in an apartment, with 7-9 steps up to enter and same number of steps back down to get into apartment, has 2 supportive daughters and supportive sister. Pt has a walker, shower bench, O2 and requires 2L at baseline) and trilogy
noninvasive ventilator. Pt has O2 supplies provided by [employer]. Pt is independent with his ADLs at baseline. Pt has history of stay at [facility] and [facility] for home care. Pt has negative experience being at [facility].
PT and OT will evaluate the pt to determine a level of care at discharge.
PCP: Bruce Tapia
Pharmacy: [facility]
D/C plan: Home with [facility] vs SNF if recommended by PT/OT
CM will follow with discharge plan updates as hospitalization progresses
--- NOTE | 2024-03-08 15:21 | PTCARENOTE ---
Borderline BP, S/P Oxycodone for left sided rib pain and chest pain worsening with deep breaths and repositioning. He easily awakens with slightly BP improvement.
[2024-03-08 15:47] LABS: Urine Albumin Trace (Neg - Trace); Urine Bilirubin Negative (Negative); Urine Character Slightly Cloudy (Clear); Urine Color Yellow; Urine Glucose 1+ (Negative); Urine Ketone Negative (Negative); Urine Leukocyte Trace (Negative); Urine Nitrite Negative (Negative); Urine Occult Blood 3+ (Negative); Urine Urobilinogen Negative (Neg - 1+)
[2024-03-08 16:08] LABS: Urine Sodium 39 mmol/L (30-90)
[2024-03-08 16:09] LABS: Troponin I 0.289 ng/ml
[2024-03-08 16:14] LABS: Urine White Cell 0-2 /HPF (0-5)
[2024-03-08] MEDS: KCL 20 MEQ PO (17:28)
[2024-03-08] MEDS: NOVOLOG FLEXPEN-MODERATE RESISTANCE SC (17:28)
[2024-03-08 17:38] LABS: Glucose - Point of Care 131 mg/dl (70-99)
[2024-03-08] MEDS: XOPENEX HFA 45 MCG INHALER INH ×2 (19:35→19:52)
[2024-03-08] MEDS: XOPENEX 1.25 MG INHALANT SOLUTION INH (19:52)
[2024-03-08 21:17] LABS: Troponin I 0.281 ng/ml
[2024-03-08] MEDS: LANTUS 0.23 UNITS SC (22:15)
[2024-03-08] MEDS: MELATONIN 5 MG PO (22:15)
[2024-03-08] MEDS: LIPITOR 80 MG PO (22:15)
[2024-03-08] MEDS: FLOMAX 0.4 MG PO (22:15)
[2024-03-08] MEDS: PROTONIX 40 MG PO (22:15)
[2024-03-08 22:29] LABS: Glucose - Point of Care 147 mg/dl (70-99)
[2024-03-09] VITALS (26 sets, daily range): BP systolic 83–110; BP diastolic 60–84; PULSE 2–119; BMI 29.5
[2024-03-09] MEDS: XOPENEX 1.25 MG INHALANT SOLUTION INH (01:24)
--- NOTE | 2024-03-09 01:54 | PTCARENOTE ---
Pt received at 19:00, initial assessment as documented. Intermittently asleep, remains on bipap. Assessment unchanged.
[2024-03-09 05:34] LABS: Troponin I 0.272 ng/ml
[2024-03-09 06:20] LABS: ALT (SGPT) 22 U/L (0-50); AST (SGOT) 23 U/L (17-59); Alkaline Phosphatase 85 U/L (38-126); Blood Urea Nitrogen 104 mg/dl (9-20); Calcium 9.5 mg/dl (8.4-10.2); Carbon Dioxide 40 mmol/L (22-30); Chloride 83 mmol/L (98-107); Estimated Creatinine Clearance 35 ml/min; Glucose 120 mg/dl (70-99); Potassium 3.1 mmol/L (3.5-5.1); Sodium 135 mmol/L (135-145); Total Bilirubin 1.4 mg/dl (0.2-1.3); Total Protein 6.8 g/dl (6.3-8.2); eGFR 33.04
--- NOTE | 2024-03-09 07:08 | W.PN.INTV ---
Addendum entered and electronically signed by Stormy Dennis, DO 03/09/24 14:30:
Transfer initiated to IVU
Maintained on BIPAP and COPD meds/pulm status stable
We will sign off upon transfer
Outpatient pulmonary FU recommended
Original Note:
Today's Communication / Plan
Recommendations
Doing well post treatment, UO adequate on diuresis
BP stable, hold parameters are placed on meds/midodrine PO PRN added
BIPAP continues nightly
Encouraged PT/OT, OOB
Cards/renal following
Can transfer to IVU today
Assessment
-
Patient is a 63-year-old male with previous history of ischemic cardiomyopathy 10%, chronic heart failure with reduced EF, recurrent VT, severe COPD, noncompliance presenting to for intermittent chest pain involving his right shoulder and left
nipple, associated dyspnea on exertion, orthopnea and admitted 03/07/2024. Was given a dose of nitroglycerin in the ER with 80 mg of Lasix. Overnight, chest pain worsening now 04/22, placed on BiPAP at nighttime. Pain is unrelieved by sublingual
nitro, IV morphine was given. Patient then developed acute onset of nausea and unresponsiveness. Code 9 was called, CPR initiated for 3 minutes total with return to spontaneous circulation. He was then transferred to ICU for further management.
PEA/Cardiac arrest s/p CPR/ROSC, downtime 3 mins
Chest pain r/o ACS, 04/22
Mild leukocytosis
CALVIN, creatinine 2.1 (baseline 1.2�1.3)
Acute on chronic heart failure exacerbation, proBNP 24,400
Chronic hypercarbic respiratory failure, ABG 7.44/59/44
End stage cardiomyopathy
End stage COPD/stage IV
Conditions present prior to admission
Very severe COPD/emphysema
FEV1 0.82/22%, September 2020
Recent hospitalizations [facility]
[id number] smoker, ongoing
Syncope, VT on amiodarone therapy
Chronic HFrEF
Ischemic cardiomyopathy, EF 10%
VT/PEA Code, prolonged CPR for 20 minutes 2020
CAD with multiple stents
Atrial fibrillation on Eliquis
History of VDRF, multiple intubations in the past
History of anemia
History of left cerebellar CVA
Chronic hypercarbia likely LOREN/OHS
Obstructive sleep apnea, noncompliant with BIPAP therapy
Secondary Polycythemia-- baseline hemoglobin 17-18 secondary to chronic hypoxemia
Hypertension
Hyperlipidemia
Diabetes
History of hemorrhagic gastritis January 2014
Questionable history of 'embolism' 2009, per pt (without obvious treatment, details unclear)
History of noncompliance, care is followed at [facility]
Plan
No current signs of metabolic encephalopathy or MS changes/following commands
Denies pain at this time.
Pain/sedation: PRN, hold sedation
RASS goals: 0
s/p cardiac arrest
Hemodynamically stable, not requiring pressors.
Cardiac history reviewed-- extensive end stage CM history with ICD and recurrent VT
Interrogation planning--VT likely cause/ICD adjustments
Repeat ECHO, RHC showing PCWP 44, volume overloaded
Appreciate cards recs, discussed plan of care with team
Prior ECHO reviewed (2020) indicating EF 10-15%, stage III DD, moderate PH
Stable BP, but can add BP parameters and midodrine PO PRN
Diuresis ongoing
Oxygen needs: on BIPAP, noted to be on home O2
Prior history of lung disease: severe COPD, last FEV1 0.6L (19%)
He meets criteria for end stage COPD/stage IV
Supplemental O2 as indicated to maintain sats > 89%
CXR/CT reviewed indicating NAD
Diet advancement, tolerating
Shipping Room Supervisor recommendations
Aspiration precautions, HOB > 30 degrees
Speech therapy eval can be considered if at elevated risk
GI prophylaxis if indicated for mechanical ventilation >48 hours, prior history of GERD, stress ulcer formation in the critically ill
CALVIN present creatinine 2.1 (baseline 1.2�1.3)
Renal following
CKD history
Void trials
Follow urine output, critical I/Os
Replete electrolytes as needed
No signs/symptoms suspicious for infectious etiology at this time
Observe off antibiotics for now
Follow fever trend, WBC count
CBC stable, no signs of bleeding or coagulopathy.
Taking Eliquis at home for Afib, can resume
DVT prophylaxis as assessed based on risk, including mechanical SCDs
Can transfuse if indicated for Hb <7, plt < 10
INR WNL
H/o diabetes, can continue on home meds, SS for coverage
HbA1c 14%
Poorly controlled, will need to adjust insulin based on need
Diabetic diet, noncompliance noted
Poor prognosis overall, I had a conversation with patient in regards to prognosis and he is not ready for hospice. He did state that if he should suffer catastrophic neurologic injury with any future arrests he would not want to be prolonged on the
vent and would then be open to comfort measures. He does not have a living will, he states his daughter does understand his wishes.
He remains full code.
Diagnostic Data
CXR 08/02/2021: ET tube appropriate. Patchy bilateral infiltrate, pulmonary edema
CT chest 08/15/20: Prior 9 mm groundglass right upper lobe nodule resolved. No new nodules per report. Moderate emphysema, left upper lobe bleb
ECHO 07/17/21- Left ventricle is severely dilated. Severely reduced left ventricular systolic function. Global hypokinesis. Top normal LV wall thickness. Left ventricular ejection fraction is 10-15% by visual estimate. Stage III diastolic
dysfunction suggestive of restrictive filling pattern and increased filling pressures. Normal right ventricular size and function. Device wire seen in right ventricle.
Biatrial dilation, left > right. Mild aortic regurgitation. Mild mitral regurgitation. The IVC is dilated and does not collapse. Right atrial pressure is estimated at 12 mmHg.
Mild pulmonary hypertension. PASP estimated at 49 mmHg. Compared to previous echo, the aorta does not appear dilated. There is now severe, stage 3 diastolic dysfunction.
TTE 05/28/20: EF 15-20%, mild MR/TR, global hypokinesis. Mild pulmonary hypertension, PASp 40
Resting nuclear 2013: EF 14%, multivessel scar
Spirometry 06/07/23: FEV1 0.64L 19%, FVC 1.72L 39%, ratio 37. Post FEV1 0.74L 22% +BD response in FVC (very severe obstruction)
September 2020: Severe obstructive lung disease. FEV1 0.82/22%
Nocturnal oximetry 06/13/14:24 minutes with saturation less than 88%
Reports and relevant images were personally reviewed.
-----
Critical Care time 35 mins -- The patient is admitted for acute critical illness for the treatment of vital organ failure and/or prevention of further life-threatening conditions. Total care includes time spent in review of history (review of prior
records), physical exam, medications, hemodynamic/ventilator parameters, laboratory data, imaging and discussion with house staff, pharmacy, respiratory therapy, power mule operator, and nursing.
Subjective Dataa
Subjective Data
Date of Service:
Date of Service: March 09, 2024
Chief Complaint: Statue Carver Follow Up
Subjective:
Doing well, remains stable off pressors
No new events ON
Objective Data
Data Reviewed
Vital Signs / I&O / Oxygen:
Vital Signs
Temp Pulse Resp BP Pulse Ox
97.3 F 78 16 90/73 96
03/09/24 04:20 03/09/24 04:15 03/09/24 04:15 03/09/24 04:00 03/09/24 04:15
Intake and Output
03/08/24 03/09/24 03/10/24
06:59 06:59 06:59
Intake Total 540 / 540
Output Total 625 / 625 1770 / 1770
Balance -625 / -625 -1230 / -1230
SaO2 96
Nasal Cannula flow liters per 6
minute
Physical Exam
General: Comfortable and Other (NAD)
HEENT: Normocephalic, Anicteric and Moist Mucous Membranes
Cardiovascular: S1-S2 and Regular Rhythm
Respiratory: Clear and Non-Labored Respirations
GI: Soft, Distended (protuberant, obese) and Non Tender
Neurology: Awake, Alert, Oriented, AO x 3 and No Motor Deficits
Skin: Warm, Dry and Good Color
Labs/Micro/Reports
Lab Data
03/08/24 01:53
03/09/24 04:48
[2024-03-09 07:40] LABS: Glucose - Point of Care 129 mg/dl (70-99)
--- NOTE | 2024-03-09 08:13 | W.PN.HOSP.TC ---
Today's Communication/Plan
-
Continue diuresis
Replete potassium
Check magnesium
Assessment / Plan
Assessment / Plan
Gen-AAOx3, NAD, BiPAP mask
HEENT-NC, AT, anicteric, clear oral mm
Neck-supple
CV-reg, no M, +S1/S2, tender anterior chest to palpation
Lungs-clear B/L
Abd-soft, NT, ND
Ext-left pedal edema
Musculoskeletal-no cyanosis, clubbing
Skin-warm and dry
Neuro-grossly non-focal
Psych-calm, cooperative
In-hospital cardiac arrest -March 07 evening. Required 3 minutes of CPR then had ROSC. Defibrillator did not fire as his threshold is 171 bpm. Cardiology believes that either fast AF/AT or VT precipitated his arrest. ICD was reprogrammed to treat
V. tach at 160 bpm.
Acute on chronic hypoxic/hypercapnic respiratory failure -likely multifactorial etiology including COPD, questionable heart failure, other. Currently on BiPAP, wean down as able.
Chest x-ray not significantly impressive but read as mild heart failure.
Patient uses a home ventilator at nighttime, 4 to 6 L of nasal cannula oxygen during the day.
Acute on chronic heart failure with reduced EF exacerbation -confirmed diagnosis with elevated PCWP of 47 on RHC. Echocardiogram shows LVEF of 10 to 15%, severe diffuse global hypokinesis, RV not well-visualized, mild TR. He is on furosemide 80 mg
twice daily at home. Currently on 80 mg IV twice daily.
Hypokalemia -continue repletion. Check magnesium.
Troponin elevation -likely acute nonischemic myocardial injury. Troponin trending down.
BiV ICD
CALVIN on CKD 3A -creatinine 2.2 today, slowly rising. Yan catheter placed. Nephrology following. Possible cardiorenal syndrome versus hypotension induced ATN versus other.
COPD without exacerbation
History of stroke
Paroxysmal atrial fibrillation -on chronic amiodarone, Eliquis.
DM2 with hyperglycemia -hemoglobin A1c 8.0%, much improved compared to last year. At home, he is on glipizide 5 mg daily, Farxiga 10 mg daily, Lantus 23 units at bedtime. Patient received 23 units of Lantus last night, glucose 120 this morning.
Currently n.p.o. for right heart cath. Continue low resistance aspart corrective scale.
LOREN
Full code -discussed with patient, he wants to remain a full code. Unfortunately his overall prognosis remains poor given severe cardiomyopathy and presentation with severe respiratory failure.
Anticipated Discharge: > 48 hours
Subjective/Interval History
-
Date of Service: March 09, 2024
Patient seen and examined. Complaining of chest pain from CPR.
Objective Data
-
Labs:
Laboratory Results
03/09/24
04:48
Sodium 135
Potassium 3.1 L
Chloride 83 L
Carbon Dioxide 40 H
BUN 104 H*
Creatinine 2.2 H
Glucose 120 H
Calcium 9.5
Total Bilirubin 1.4 H
AST 23
ALT 22
Alkaline Phosphatase 85
Vital Signs:
Vital Signs
Temp Pulse Resp BP Pulse Ox
97.8 F 76 17 83/69 96
03/09/24 07:35 03/09/24 07:00 03/09/24 07:00 03/09/24 07:00 03/09/24 07:00
I&O
03/08/24 03/09/24 03/10/24
06:59 06:59 06:59
Intake Total 540 / 540
Output Total 625 / 625 1770 / 1770
Balance -625 / -625 -1230 / -1230
Review of Systems
-
History Source: Patient
All other systems: Reviewed and negative
[2024-03-09] MEDS: PULMICORT 0.5 MG INH (08:17)
[2024-03-09] MEDS: XOPENEX HFA 45 MCG INHALER 1 PUFF INH (08:17)
--- NOTE | 2024-03-09 08:30 | PTCARENOTE ---
Received pt @ change of shift. AAOX3, c/o mod sternal pain- medicated w PRN- see NOV. AV-paced on monitor. SpO2 100% on biPAP; switched over to 6LNC and SPO2 maintained. +BS, abd soft/round/obese; poor amor. Yan in place draining clear/yellow
urine. Assistedx2 to stand @ side of bed to reposition and then sit @ side of bed for breakfast. #20 R AC and R FA patent, dressing c/d/i. Pt. instructed on how to report care concerns and call adina w in reach.
[2024-03-09 08:47] LABS: Magnesium 2.5 mg/dl (1.6-2.3)
[2024-03-09] MEDS: NOVOLOG FLEXPEN-MODERATE RESISTANCE SC ×2 (08:52→13:58)
[2024-03-09] MEDS: KCL PO (08:55)
--- NOTE | 2024-03-09 09:04 | W.PN.CD ---
Today's Communication / Plan
-
Continue diuresis
Impression / Plan
-
Background: 63 y/o male with SEVERE COPD, on home O2, chronic HFrEF, severe ischemic cardiomyopathy, prior VT, CAD (s/p LAD and LCx PCIs and RCA SHOE SPRAYER,), hx of CVA, paroxysmal atrial fibrillation, and prior cardiac arrest (08/2022), DM.
Outpatient painter ski edge is Dr. Galloway and his EP doctor is Dr. Flores at [facility]. Has seen Dr. Rodriguez and may transition back to our practice.
Pulmonary: Kemp
Ischemic Cardiomyopathy with chronic HFrEF
- [employer] Sci device diagnostics favor heart failure exacerbation but his BUN/Cr could be more c/w dehydration and his CXR is not as bad as it has been in the past in terms of heart failure
- RHC below, but with severely elevated filling pressures
- Cont IV diuresis, bumex worked in past with significant diuresis, could consider switch if lasix does not work
- standing weights
- overall prognosis is extremely guarded if he does not improve
Acute on chronic kidney injury
- Cr 1.2 to 1.3 in May 2023
- Cr 2.3 in Jul 2021, Today 2.2
- cont diuresis
Admitted with 20 hrs of CP
- Troponin pattern so far argues against ACS/VT
- Last cath 07/12/2023 led to med rx with chronic 100% pRCA and patent stents and no other obstructive CAD
Cardiac arrest on IMU had arrest with 3 min CPR and no meds/shocks
- On tele he was tachy and regular at close to 170-175 bpm
- ICD interrogation shows he went into AFib perhaps 30 min before his arrest. Initially ICD seemed to call his fast V rate an SVT but later in event he may have gone into a VT at similar rate/morphology. Additional analysis by [email or web address] has been
requested. In any event either fast AF/AT or VT precipiced his arrest.
- EKG abnormal but chronically abnormal, no ST Elevation, ST depression old,
- troponins are not significantly elevated
SEVERE COPD, follows with Dr. Kemp, on home O2
Hx of VT
Upgraded to BiV ICD at [facility]
Known Chronic CAD, last cath led to med rx 07/12/2023, see below
AFib: NOT PERMANENT: IN SINUS/atrial paced on our EKG here at on 06/04/2023
- Paroxysmal
- On Eliquis, [id number] at least 5 (HF, HTN, DM, stroke, vacular disease)
- On AMIO, presumably for VT and AFib
Prior CVA
Ambulatory dysfunction/Chronic pain, knees, hips, walks with a walker
Hx HTN
Subjective:
Data:
RHC: HEMODYNAMIC FINDINGS (mmHg):RA(a,v,m): 29, 29, 27; RV(s/d,EDP): 64/21, 28; PA(s/d/m): 66/46, 53; PCWP(a,v,m): 47, 48, 44; Cardiac Output/Index (l/min / l/min/m2):Estimated Maria E Method: 2.8 /1.4
PA: 35% on BiPAP with 2 L of oxygen by nasal cannula
LV: 94% on BiPAP with 2 L oxygen by nasal cannula
Cath 07/12/2023 ([facility]): R dom, 100% pRCA, filled by L>R collaterals, patent long stent pLCx, patent long stent mLAD. LVEDP 8, no
LE arterial WAQAR 04/28/2023: Normal WAQAR bilateral
Graciela Nuc stress 04/16/2023: LV SEVERELY dilated, LVDV 594 ml, LVSV 571 ml, calculated LVEF 4%. Large fixed defects: mid to distal anterior wall, apex, and mid to distal inf wall, minimal reversible, thinning inferobasal wall
Echo 01/05/2023: LV severely dilated, LVEF 20-25%, RV normal size/function, minimal AoV sclerosis, mild AR/MR, mild LAE, est PASP normal, IVC normal
Our last ICD check 01/21/2022: at that time a dual ICD, no recent AFib, no recent VT, AP 26%, RADIO TIME SALESPERSON 2%.. PAF, 2 episodes, longest 6 hrs, seen on check from 02/2019
Pulmonary Office Note: Follows with Bernard Kemp MD. Known SEVERE COPD
Spirometry 10/14/2023: FEV1/FVC 35%, FEV1 0.58 L-70%, FVC 1.64 L (36%.� Very severe airflow obstruction with a restriction.
DLCO 09/16/2020: 7.64; 27%
Physical Exam
Vital Signs/Labs
Vital Signs
Temp Pulse Resp BP Pulse Ox
97.8 F 76 17 83/69 96
03/09/24 07:35 03/09/24 07:00 03/09/24 07:00 03/09/24 07:00 03/09/24 07:00
03/08/24 03/09/24 03/10/24
06:59 06:59 06:59
Actual Weight 199 lb 15.348 oz 199 lb 11.821 oz
03/08/24 01:53
03/09/24 04:48
PT 20.1 Sec (11.4-14.6) H 03/08/24 01:57
INR 1.74 03/08/24 01:57
APTT 32.7 Sec (23.4-35.0) 03/08/24 01:57
Magnesium 2.5 mg/dl (1.6-2.3) H 03/09/24 04:48
03/07/24
20:19
Qjn-L-Clnivmborgh Pept [id number]
LAB Results
03/07/24 03/08/24 03/08/24
20:19 01:53 05:57
Troponin I 0.105 H* 0.104 H* 0.115 H*
03/08/24 03/08/24 03/08/24
14:44 15:31 20:46
Troponin I Cancelled 0.289 H* 0.281 H*
03/09/24
04:48
Troponin I 0.272 H*
Physical Exam
Constitutional: Other (mild resp distress )
EENT: Anicteric
Cardiovascular: Rhythm & rate is regular
Respiratory: Other (decreased b/s b/l )
GI: Soft
Neuro/Psych: AO x 3
Data Reviewed
-
Date of Service: March 09, 2024
[2024-03-09] MEDS: PACERONE 200 MG PO (09:31)
[2024-03-09] MEDS: KCL 40 MEQ PO (09:31)
[2024-03-09] MEDS: FARXIGA 10 MG PO (09:31)
[2024-03-09] MEDS: LOW STRENGTH ASPIRIN 81 MG PO (09:31)
[2024-03-09] MEDS: ELIQUIS 5 MG PO ×2 (09:31→20:46)
[2024-03-09] MEDS: IMDUR (EXTENDED RELEASE) 30 MG PO (09:32)
[2024-03-09] MEDS: ROXICODONE 2.5 MG PO ×3 (09:32→22:25)
[2024-03-09] MEDS: DULCOLAX 5 MG PO (09:32)
[2024-03-09] MEDS: LASIX 80 MG IV (09:34)
[2024-03-09] MEDS: COREG PO (09:40)
--- NOTE | 2024-03-09 11:00 | PTCARENOTE ---
Pt. sitting @ side of bed, reporting SOB. SpO2 100% on 6LNC and RR 18. No s/s of resp distress. RT notified and pt. placed back on biPAP for subjective SOB. Assisted back into bed/repositioned. Call holden remains w in reach.
--- NOTE | 2024-03-09 11:33 | W.PN.NEPH.PH ---
Today's Communication / Plan
-
- change to acetazolamide
Assessment/Plan
-
Assessment:
CALVIN on CKD (bl Cr 1.3)
s/p cardiac arrest on 03/07 evening
acute on chronic hypoxic/hypercapnic resp failure
COPD
hx of stroke
pAfib
T2DM
Plan:
- in the setting of arrest and significant cardiac disease my top differentials are ATN and cardiorenal
- decent urine output with lasix + metolazone but significant alkalosis noted
- i will transition to acetazolamide 250mg BID
- UA with blood but Lao in place
- KUS without evidence of hydro
- please place on a FR of 40oz
- continue to trend Cr/lytes
- accurate I/Os. please maintain lao
- daily weights
-
-
Date of Service: March 09, 2024
CC / HPI / ROS
-
Chief Complaint:
alkalosis/CALVIN
History of Present Illness:
Cr at 2.2, relatively stable. baseline around 1.3
metabolic alkalosis noted, changed to acetazolamide
Review of Systems:
feels extremely SOB
Labs
-
Labs:
WBC 12.9 10^3/uL (4.8-10.8) H 03/08/24 01:53
WBC Cancelled 03/08/24 01:53
RBC 3.91 10^6/uL (4.70-6.10) L 03/08/24 01:53
RBC Cancelled 03/08/24 01:53
Hgb 11.3 g/dL (13.0-18.0) L 03/08/24 01:53
Hgb Cancelled 03/08/24 01:53
Hct 34.4 % (39.0-52.0) L 03/08/24 01:53
Hct Cancelled 03/08/24 01:53
Plt Count 211 10^3/uL (130-400) 03/08/24 01:53
Plt Count Cancelled 03/08/24 01:53
Sodium 135 mmol/L (135-145) 03/09/24 04:48
Potassium 3.1 mmol/L (3.5-5.1) L 03/09/24 04:48
Chloride 83 mmol/L (98-107) L 03/09/24 04:48
Carbon Dioxide 40 mmol/L (22-30) H 03/09/24 04:48
BUN 104 mg/dl (9-20) H* 03/09/24 04:48
Creatinine 2.2 mg/dL (0.7-1.3) H 03/09/24 04:48
eGFR 33.04 03/09/24 04:48
Glucose 120 mg/dl (70-99) H 03/09/24 04:48
Calcium 9.5 mg/dl (8.4-10.2) 03/09/24 04:48
Lyy-B-Solsbjfdmdw Pept 06664 pg/ml 03/07/24 20:19
Albumin 4.0 g/dl (3.5-5.0) 03/09/24 04:48
Physical Exam
-
Vital Signs:
Vital Signs
Temp Pulse Resp BP Pulse Ox
97.8 F 94 18 95/70 96
03/09/24 07:35 03/09/24 11:15 03/09/24 11:15 03/09/24 11:00 03/09/24 11:15
Cardiovascular:: Regular rate and rhythm
Respiratory:: Bilateral: Coarse
Lung Excursion:: Normal
Abdomen:: Nontender and Soft
Bowel Sounds:: Normal
Extremity Edema:: +1: Bilateral:
Lao Catheter: Yes
[2024-03-09 11:56] LABS: Glucose - Point of Care 155 mg/dl (70-99)
--- NOTE | 2024-03-09 14:16 | CM ---
CM following re: discharge planning.
Discussed in Rounds, reviewed pt's chart, met with pt. Per cardiology, overall prognosis is extremely guarded if he does not improve, continue supportive care and per rounds meeting pt can be transferred to IVU.
Pt lives in an apartment, with 7-9 steps up to enter and same number of steps back down to get into apartment, has 2 supportive daughters and supportive sister. Pt has a walker, shower bench, O2 and requires 2L at baseline) and trilogy
noninvasive ventilator. Pt has O2 supplies provided by [employer]. Pt is independent with his ADLs at baseline. Pt has history of stay at [facility] and [facility] for home care. Pt has negative experience being at [facility].
D/C plan: uncertain at this time and will depend on pt's progress.
CM will follow with discharge plan updates as hospitalization progresses
[2024-03-09 17:04] LABS: Glucose - Point of Care 174 mg/dl (70-99)
--- NOTE | 2024-03-09 17:19 | PTCARENOTE ---
Pt. refused lunch. Remained on biPAP [phone] despite mx attempts to transition back to NC. Placed back on 6LNC @ 1700 and SPO2 100%, no s/s of resp distress. Pt. also refused to get OOB today. Pt.'s son assisted w ordering pt.'s dinner. Call
adina w in reach.
[2024-03-09] MEDS: NOVOLOG FLEXPEN-MODERATE RESISTANCE 1 UNITS SC (18:01)
--- NOTE | 2024-03-09 18:02 | TRANSFER ---
Report given to IVU RN and pt. transported via wheelchair on 6LNC and cardiac nurse w belongings and son. No further needs from this RN.
--- NOTE | 2024-03-09 18:18 | PTCARENOTE ---
Pt received as transfer from ICU. AAOx3. AV-paced on revenue stamp clerk. HRs 90-110s at rest. SaO2 100% on 6L nasal cannula. BP 100/73. Assessment documented. Pt in chair for dinner. Family at bedside.
[2024-03-09 19:11] LABS: Hepatitis C Antibody Negative (Negative)
[2024-03-09] MEDS: FLOVENT 220MCG 2 PUFF INH (19:29)
[2024-03-09] MEDS: ProAIR HFA INHALER 2 PUFF INH (19:34)
--- NOTE | 2024-03-09 19:54 | RESPNOTE ---
called by RN at 19:[address] Darby on bipap, arrived at 19:22 after eceiving another text from the RN that he had already placed him on the hospitals bipap. When checking on the bipap, the screen was blank and no idea of what was being
delivered to the patient. RN stated he did it because the pt was unstable. Bipap machine was changed out, will be left for bio med to evalluate why the screen will not pop on. pt is now on new bipap, same settings as prior, increased O2 to 5 lpm for
his SOB, weaning it gradually for patient comfort.
[2024-03-09] MEDS: KCL 20 MEQ PO (20:46)
[2024-03-09] MEDS: DIAMOX 250 MG PO (20:59)
[2024-03-09] MEDS: ROXICODONE PO (22:13)
[2024-03-09] MEDS: FLOMAX 0.4 MG PO (22:13)
[2024-03-09] MEDS: PROTONIX 40 MG PO (22:13)
[2024-03-09] MEDS: MELATONIN 5 MG PO (22:13)
[2024-03-09] MEDS: LIPITOR 80 MG PO (22:13)
[2024-03-09 22:25] LABS: Glucose - Point of Care 254 mg/dl (70-99)
[2024-03-09] MEDS: LANTUS 0.23 UNITS SC (22:28)
[2024-03-10] VITALS (14 sets, daily range): BP systolic 84–115; BP diastolic 71–79; PULSE 2–103; BMI 29.5; BMI 28.6
--- NOTE | 2024-03-10 01:10 | PTCARENOTE ---
Rec'd pt. at beginning of shift sitting OOB in chair. On walking rounds complained that he felt SOB at rest on 6L NC (pulse ox 99%, lungs diminished), requesting to go on Bipap. TECHNICAL MANAGER [employer] in room and placed pt. on bipap 18/10 with 5L O2, after which pt.
stated he felt better. Mostly AV paced on the monitor with occ. V-pacing, rates ranging 80's-130's (with activity). Yan draining clear yellow urine with occasional streaks of blood, Yan care provided. Complaining of sternal pain from CPR,
oxycodone given after which pt. fell asleep.
[2024-03-10] MEDS: ROXICODONE 2.5 MG PO ×4 (04:15→22:20)
[2024-03-10 04:17] LABS: % Basophils 0.2 % (0-2); % Eosinophils 0.6 % (0-6); % Immature Granulocytes 0.4 % (0-0.5); % Lymphocytes 6.4 % (20.5-51.1); % Monocytes 9.2 % (1.7-9.3); % Neutrophils 83.2 % (42.2-75.2); Absolute Eosinophils 0.1 10^3/uL (0-0.7); Absolute Lymphocytes 0.7 10^3/uL (1.2-3.4); Absolute Monocytes 0.9 10^3/uL (0.1-0.6); Absolute Neutrophils 8.6 10^3/uL (1.4-6.5); Hematocrit 32.2 % (39.0-52.0); Hemoglobin 10.1 g/dL (13.0-18.0); Mean Corp Hgb Conc. 31.4 g/dL (33.0-37.0); Mean Corpuscular Hgb 28.6 pg (27.0-31.0); Mean Corpuscular Volume 91.2 fL (80.0-94.0); Mean Platelet Volume 11.6 fL (7.4-10.4); Nucleated Red Blood Cells % 0 % (-); Platelet Count 186 10^3/uL (130-400); Red Blood Cell Count 3.53 10^6/uL (4.70-6.10); White Blood Cell Count 10.3 10^3/uL (4.8-10.8)
[2024-03-10 04:51] LABS: ALT (SGPT) 22 U/L (0-50); AST (SGOT) 29 U/L (17-59); Albumin 4.1 g/dl (3.5-5.0); Alkaline Phosphatase 78 U/L (38-126); Blood Urea Nitrogen 109 mg/dl (9-20); Calcium 9.2 mg/dl (8.4-10.2); Carbon Dioxide 36 mmol/L (22-30); Chloride 84 mmol/L (98-107); Estimated Creatinine Clearance 31 ml/min; Glucose 130 mg/dl (70-99); Potassium 3.4 mmol/L (3.5-5.1); Sodium 134 mmol/L (135-145); Total Bilirubin 1.4 mg/dl (0.2-1.3); Total Protein 6.9 g/dl (6.3-8.2); eGFR 28.34
--- NOTE | 2024-03-10 07:35 | W.PN.CD ---
Today's Communication / Plan
-
IV diuresis if able
Switching from coreg to metoprolol as BP allows 25 XL today
Impression / Plan
-
Background: 63 y/o male with SEVERE COPD, on home O2, chronic HFrEF, severe ischemic cardiomyopathy, prior NV, CAD (s/p LAD and LCx PCIs and RCA PARKER,), hx of CVA, paroxysmal atrial fibrillation, and prior cardiac arrest (08/2022), DM.
Outpatient machine builder is Dr. Galloway and his EP doctor is Dr. Flores at [facility]. Has seen Dr. Rodriguez and may transition back to our practice.
Pulmonary: Justo
Ischemic Cardiomyopathy with chronic HFrEF now acute severe HF; poor insight into severity of condition
- RHC below, but with severely elevated filling pressures consistent with severe HFrEF exacerbatino
- IV diuresis consider Bumex IV today
- standing weights
- overall prognosis is extremely guarded if he does not improve
Acute on chronic kidney injury
- Cr 1.2 to 1.3 in May 2023
- Cr 2.3 in Jul 2021, Today 2.5
- cont diuresis nephrology following
Admitted with 20 hrs of CP
- Troponin pattern so far argues against ACS/NV
- Last cath 07/12/2023 led to med rx with chronic 100% pRCA and patent stents and no other obstructive CAD
Cardiac arrest on IMU had arrest with 3 min CPR and per Dr Powers first AF then clearly VT was cause of arrest
- EKG abnormal but chronically abnormal, no ST Elevation, ST depression old,
- troponins are not significantly elevated
SEVERE COPD, follows with Dr. Kemp, on home O2
Hx of VT
Upgraded to BiV ICD at [facility]
Known Chronic CAD, last cath led to med rx 07/12/2023, see below
AFib: NOT PERMANENT: IN SINUS/atrial paced on our EKG here at on 06/04/2023
- Paroxysmal
- On Eliquis, [id number] at least 5 (HF, HTN, DM, stroke, vacular disease)
- On AMIO, presumably for VT and AFib
Prior CVA
Ambulatory dysfunction/Chronic pain, knees, hips, walks with a walker
Hx HTN
Subjective:
Complaining of food, tried discussing severity of situation and my concern with overall 1 year mortality being high
Data:
RHC: HEMODYNAMIC FINDINGS (mmHg):RA(a,v,m): 29, 29, 27; RV(s/d,EDP): 64/21, 28; PA(s/d/m): 66/46, 53; PCWP(a,v,m): 47, 48, 44; Cardiac Output/Index (l/min / l/min/m2):Estimated Maria E Method: 2.8 /1.4
PA: 35% on BiPAP with 2 L of oxygen by nasal cannula
LV: 94% on BiPAP with 2 L oxygen by nasal cannula
Cath 07/12/2023 ([facility]): R dom, 100% pRCA, filled by L>R collaterals, patent long stent pLCx, patent long stent mLAD. LVEDP 8, no
LE arterial WAQAR 04/28/2023: Normal WAQAR bilateral
Graciela Nuc stress 04/16/2023: LV SEVERELY dilated, LVDV 594 ml, LVSV 571 ml, calculated LVEF 4%. Large fixed defects: mid to distal anterior wall, apex, and mid to distal inf wall, minimal reversible, thinning inferobasal wall
Echo 01/05/2023: LV severely dilated, LVEF 20-25%, RV normal size/function, minimal AoV sclerosis, mild AR/MR, mild LAE, est PASP normal, IVC normal
Our last ICD check 01/21/2022: at that time a dual ICD, no recent AFib, no recent VT, AP 26%, WILDLIFE ENFORCEMENT MAJOR 2%.. PAF, 2 episodes, longest 6 hrs, seen on check from 02/2019
Pulmonary Office Note: Follows with Bernard Kemp MD. Known SEVERE COPD
Spirometry 10/14/2023: FEV1/FVC 35%, FEV1 0.58 L-70%, FVC 1.64 L (36%.� Very severe airflow obstruction with a restriction.
DLCO 09/16/2020: 7.64; 27%
Physical Exam
Vital Signs/Labs
Vital Signs
Temp Pulse Resp BP Pulse Ox
97.5 F 87 18 115/75 99
03/10/24 03:40 03/10/24 04:00 03/10/24 07:06 03/10/24 03:39 03/10/24 07:06
03/09/24 03/10/24 03/11/24
06:59 06:59 06:59
Actual Weight 199 lb 11.821 oz 199 lb 4.766 oz
03/10/24 03:53
03/10/24 03:53
PT 20.1 Sec (11.4-14.6) H 03/08/24 01:57
INR 1.74 03/08/24 01:57
APTT 32.7 Sec (23.4-35.0) 03/08/24 01:57
Magnesium 2.5 mg/dl (1.6-2.3) H 03/09/24 04:48
03/07/24
20:19
Wlm-X-Sypggxuppvq Pept 28010
LAB Results
03/07/24 03/08/24 03/08/24
20:19 01:53 05:57
Troponin I 0.105 H* 0.104 H* 0.115 H*
03/08/24 03/08/24 03/08/24
14:44 15:31 20:46
Troponin I Cancelled 0.289 H* 0.281 H*
03/09/24
04:48
Troponin I 0.272 H*
Physical Exam
Constitutional: Other (Mild respiratory distress)
Cardiovascular: Rhythm & rate is regular (paced) and Pedal edema present
Respiratory: Other (poor insp effort with poor air movement b/l )
GI: Soft
Neuro/Psych: AO x 3
Data Reviewed
-
Date of Service: March 10, 2024
EKG: Tracing Personally Visualized and interpreted (paced)
Echo: Tracing Personally Visualized and interpreted
Labs: Labs Reviewed by me
[2024-03-10] MEDS: SPIRIVA RESPIMAT 2.5 MCG 2 PUFF INH (08:00)
[2024-03-10] MEDS: FLOVENT 220MCG 2 PUFF INH ×2 (08:01→20:37)
[2024-03-10 08:43] LABS: Glucose - Point of Care 156 mg/dl (70-99)
[2024-03-10] MEDS: NOVOLOG FLEXPEN-MODERATE RESISTANCE 1 UNITS SC (08:54)
[2024-03-10] MEDS: LOW STRENGTH ASPIRIN 81 MG PO (09:10)
[2024-03-10] MEDS: DULCOLAX 5 MG PO (09:10)
[2024-03-10] MEDS: KCL 20 MEQ PO ×2 (09:11→20:39)
[2024-03-10] MEDS: ELIQUIS 5 MG PO ×2 (09:11→20:37)
[2024-03-10] MEDS: FARXIGA 10 MG PO (09:11)
[2024-03-10] MEDS: PACERONE 200 MG PO (09:11)
[2024-03-10] MEDS: IMDUR (EXTENDED RELEASE) 30 MG PO (09:12)
[2024-03-10] MEDS: FLUSH (NSS) 2 FLUSH IV (09:13)
[2024-03-10] MEDS: DIAMOX 250 MG PO ×2 (09:17→20:39)
--- NOTE | 2024-03-10 10:10 | W.PN.HOSP.TC ---
Today's Communication/Plan
-
Continue current care
PT/OT
Assessment / Plan
Assessment / Plan
Gen-AAOx3, NAD, BiPAP mask
HEENT-NC, AT, anicteric, clear oral mm
Neck-supple
CV-reg, no M, +S1/S2, tender anterior chest to palpation
Lungs-clear B/L
Abd-soft, NT, ND
Ext-left pedal edema
Musculoskeletal-no cyanosis, clubbing
Skin-warm and dry
Neuro-grossly non-focal
Psych-calm, cooperative
In-hospital cardiac arrest -March 07 evening. Required 3 minutes of CPR then had ROSC. Defibrillator did not fire as his threshold is 171 bpm. Cardiology believes that either fast AF/AT or VT precipitated his arrest. ICD was reprogrammed to treat
V. tach at 160 bpm.
Acute on chronic hypoxic/hypercapnic respiratory failure -likely multifactorial etiology including COPD, questionable heart failure, other. Currently on 4 L nasal cannula oxygen.
Chest x-ray not significantly impressive but read as mild heart failure.
Patient uses a home ventilator at nighttime, 4 to 6 L of nasal cannula oxygen during the day.
Acute on chronic heart failure with reduced EF exacerbation -confirmed diagnosis with elevated PCWP of 47 on RHC. Echocardiogram shows LVEF of 10 to 15%, severe diffuse global hypokinesis, RV not well-visualized, mild TR. He is on furosemide 80 mg
twice daily at home. Defer diuresis to nephrology, cardiology. I's and O's remain negative. Weight has plateaued at 90 kg.
Chronic metabolic alkalosis -acetazolamide started by nephrology. Bicarb 36 today.
Hypokalemia -continue repletion. Magnesium 2.5.
Hyponatremia -134. Monitor on diuretics.
Troponin elevation -likely acute nonischemic myocardial injury. Troponin trending down.
BiV ICD
CALVIN on CKD 3A -creatinine 2.5 today, slowly rising. Yan catheter placed. Nephrology following. Possible cardiorenal syndrome versus hypotension induced ATN versus other.
COPD without exacerbation
History of stroke
Paroxysmal atrial fibrillation -on chronic amiodarone, Eliquis.
DM2 with hyperglycemia -hemoglobin A1c 8.0%, much improved compared to last year. At home, he is on glipizide 5 mg daily, Farxiga 10 mg daily, Lantus 23 units at bedtime. Patient received 23 units of Lantus last night, glucose 120 this morning.
Currently n.p.o. for right heart cath. Continue low resistance aspart corrective scale.
LOREN
Full code -discussed with patient, he wants to remain a full code. Unfortunately his overall prognosis remains poor given severe cardiomyopathy and presentation with severe respiratory failure. Now developing multiorgan failure. Patient seems to
lack insight into his overall prognosis. During my goals of care discussion, he was too focused on talking about tuna fish and other dietary modifications. I tried to explain to him that he really should focus on quality of life given his poor
prognosis and limited life span. Hospice should be considered. He states that he wants to live to see his first grandchild, expected around September or October.
Anticipated Discharge: > 48 hours
Subjective/Interval History
-
Date of Service: March 10, 2024
Patient seen and examined. No complaints currently.
Objective Data
-
Labs:
Laboratory Results
03/10/24
03:53
WBC 10.3
Hgb 10.1 L
Hct 32.2 L
Plt Count 186
Sodium 134 L
Potassium 3.4 L
Chloride 84 L
Carbon Dioxide 36 H
BUN 109 H*
Creatinine 2.5 H
Glucose 130 H
Calcium 9.2
Total Bilirubin 1.4 H
AST 29
ALT 22
Alkaline Phosphatase 78
Vital Signs:
Vital Signs
Temp Pulse Resp BP Pulse Ox
97.5 F 84 16 105/79 99
03/10/24 03:40 03/10/24 08:01 03/10/24 08:01 03/10/24 07:06 03/10/24 08:01
I&O
03/09/24 03/10/24 03/11/24
06:59 06:59 06:59
Intake Total 540 / 540 960 / 960
Output Total 1770 / 1770 2350 / 2350 325 / 325
Balance -1230 / -1230 -1390 / -1390 -325 / -325
Review of Systems
-
History Source: Patient
All other systems: Reviewed and negative
[2024-03-10] MEDS: KCL 270 MEQ IV (10:28)
[2024-03-10] MEDS: TYLENOL 650 MG PO (10:41)
[2024-03-10] MEDS: ATIVAN 0.5 MG PO (10:41)
--- NOTE | 2024-03-10 10:51 | PTCARENOTE ---
Received patient this morning resting in bed, with bipap in place. Notified respiratory and patient placed on 6L NC. Patient is sitting oob in the chair now, receiving K+ rider RAC as ordered. Required assist of two from sit to stand position and
obtained patient's weight with standing scale which was significantly less than bed scale measurement. Call holden in reach.
--- NOTE | 2024-03-10 11:21 | W.PN.NEPH.PH ---
Today's Communication / Plan
-
lasix
Assessment/Plan
-
Assessment:
CALVIN on CKD (bl Cr 1.3)
s/p cardiac arrest on 03/07 evening
acute on chronic hypoxic/hypercapnic resp failure
COPD
hx of stroke
pAfib
T2DM
Plan:
continue diamox
lasix 80mg IV BID
replete K
follow BMP
add prn midodrine for SBP < 85
prognosis is poor
he would not be a dialysis candidate
-
-
Date of Service: March 10, 2024
CC / HPI / ROS
-
Chief Complaint:
alkalosis/CALVIN
History of Present Illness:
CALVIN/Cr up to 2.5
BUN up to 109
metalbolic alkalosis better on diamox 36
weights are lower
on 6L NC
Review of Systems:
feels extremely SOB
no CP
Labs
-
Labs:
WBC 10.3 10^3/uL (4.8-10.8) 03/10/24 03:53
RBC 3.53 10^6/uL (4.70-6.10) L 03/10/24 03:53
Hgb 10.1 g/dL (13.0-18.0) L 03/10/24 03:53
Hct 32.2 % (39.0-52.0) L 03/10/24 03:53
Plt Count 186 10^3/uL (130-400) 03/10/24 03:53
Sodium 134 mmol/L (135-145) L 03/10/24 03:53
Potassium 3.4 mmol/L (3.5-5.1) L 03/10/24 03:53
Chloride 84 mmol/L (98-107) L 03/10/24 03:53
Carbon Dioxide 36 mmol/L (22-30) H 03/10/24 03:53
BUN 109 mg/dl (9-20) H* 03/10/24 03:53
Creatinine 2.5 mg/dL (0.7-1.3) H 03/10/24 03:53
eGFR 28.34 03/10/24 03:53
Glucose 130 mg/dl (70-99) H 03/10/24 03:53
Calcium 9.2 mg/dl (8.4-10.2) 03/10/24 03:53
Ewt-T-Cwyhlvlfisq Pept 02387 pg/ml 03/07/24 20:19
Albumin 4.1 g/dl (3.5-5.0) 03/10/24 03:53
Physical Exam
-
Vital Signs:
Vital Signs
Temp Pulse Resp BP Pulse Ox
97.3 F 84 20 105/79 100
03/10/24 11:11 03/10/24 08:01 03/10/24 11:11 03/10/24 07:06 03/10/24 11:11
Cardiovascular:: Regular rate and rhythm
Respiratory:: Bilateral: Coarse
Lung Excursion:: Normal
Abdomen:: Nontender and Soft
Bowel Sounds:: Normal
Extremity Edema:: +2: Bilateral:
--- NOTE | 2024-03-10 11:27 | CM ---
Addendum entered by CARMITA Alonso 03/10/24 12:21:
[facility] able to accept.
Original Note:
CM following for DC planning needs.
Met w/ patient at bedside. Pt. transferred to IVU from ICU.
Reviewed initial assessment w/ patient. He confirms that he resides in an apartment alone. There are 9 ADINA + another 9 ADINA his apartment. He is indep. w/ use of a RW at baseline.
He is O2 dep. and O2 is supplied by [employer]. He also has a 'NIV' machine @ nighttime.
Pt. has aides 4 h /day thru [facility] but is transitioning to [facility] 03/13.
He has had VN and SNF in the past; declines current VN and had bad experience at past SNF ([facility]).
He believes that he will be able to return to home @ DC and will not need SNF. He would agree to VN , if needed. He has used [facility] in the past and would agree to them again.
Anticipate DC to home w/ VN and already established private aides.
[2024-03-10] MEDS: TOPROL XL 25 MG PO (12:25)
[2024-03-10 13:18] LABS: Glucose - Point of Care 216 mg/dl (70-99)
[2024-03-10] MEDS: NOVOLOG FLEXPEN-MODERATE RESISTANCE 3 UNITS SC ×2 (13:22→18:27)
[2024-03-10] MEDS: DUONEB 3 ML INH ×2 (14:32→20:37)
--- NOTE | 2024-03-10 15:06 | PTCARENOTE ---
Patient sitting oob in the chair, told respiratory therapist he felt sob and requested to go on Bipap. Also requesting a nebulizer treatment. Pulse ox 99% on 6L. Placed on Bipap by respiratory therapist. Notified Dr. Fabian and nebs ordered prn.
Also complaining that the K+ rider which was still infusing was making him feel sick to his stomach. 70ml remaining, infusion paused and stated I could continue with infusion later.
--- NOTE | 2024-03-10 16:22 | PTCARENOTE ---
Sitting oob in the chair on Bipap, stating he wanted to go back to bed and that he felt dizzy. BP 96/72, remains AV paced on the monitor with HR 90's. Required assistance of two with rolling walker back to bed. Patient is due for dose of IV lasix,
will reassess BP and administer if appropriate.
--- NOTE | 2024-03-10 16:44 | PTCARENOTE ---
blood tinged urine noted during output, rn notified
[2024-03-10] MEDS: LASIX IV (17:00)
--- NOTE | 2024-03-10 17:12 | PTCARENOTE ---
Patient resting in bed, remains on Bipap. BP 84/75 LUE, 87/[address] Pérez, will hold IV lasix and give prn midodrine PO.
[2024-03-10 17:44] LABS: Glucose - Point of Care 215 mg/dl (70-99)
[2024-03-10] MEDS: ProAmatine 5 MG PO (18:28)
[2024-03-10] MEDS: LIPITOR 80 MG PO (20:44)
[2024-03-10] MEDS: PROTONIX 40 MG PO (20:44)
[2024-03-10] MEDS: FLOMAX 0.4 MG PO (20:44)
[2024-03-10] MEDS: MELATONIN 5 MG PO (20:44)
[2024-03-10] MEDS: MIRALAX PO (21:32)
[2024-03-10] MEDS: LIDOCAINE 4% PATCH 1 PATCH TOPICAL (22:20)
[2024-03-10] MEDS: LANTUS 0.23 UNITS SC (22:27)
[2024-03-10 22:28] LABS: Glucose - Point of Care 230 mg/dl (70-99)
[2024-03-11] VITALS (10 sets, daily range): BP systolic 87–98; BP diastolic 64–74; PULSE 2–95; BMI 29.1
--- NOTE | 2024-03-11 01:31 | PTCARENOTE ---
Pt. OOB to BR this shift using RW, assist x 1. Very SOB with any activity (O2 at 6L NC) - pulse ox showing 99% while sitting on toilet. Crackles present bilateral bases. Using Bipap 18/10 with 4L when in bed, pt. much more comfortable and at ease
with it on versus O2 via NC; pulse ox ranging 95-99%. Requested Lidoderm patch for sore sternum (from CPR); order obtained and patches applied. Oxycodone also given. AV paced on the monitor in the 70's-90's, rate much better controlled since
starting Toprol today (compared to last night). Pt. sleeping.
[2024-03-11 06:44] LABS: ALT (SGPT) 48 U/L (0-50); AST (SGOT) 46 U/L (17-59); Albumin 3.9 g/dl (3.5-5.0); Alkaline Phosphatase 80 U/L (38-126); Blood Urea Nitrogen 107 mg/dl (9-20); Calcium 9.1 mg/dl (8.4-10.2); Carbon Dioxide 35 mmol/L (22-30); Chloride 86 mmol/L (98-107); Estimated Creatinine Clearance 27 ml/min; Glucose 151 mg/dl (70-99); Magnesium 2.7 mg/dl (1.6-2.3); Potassium 3.4 mmol/L (3.5-5.1); Sodium 133 mmol/L (135-145); Total Bilirubin 1.1 mg/dl (0.2-1.3); Total Protein 6.7 g/dl (6.3-8.2); eGFR 24.74
[2024-03-11] MEDS: FLOVENT 220MCG 2 PUFF INH ×2 (07:46→19:26)
[2024-03-11] MEDS: SPIRIVA RESPIMAT 2.5 MCG 2 PUFF INH (07:46)
[2024-03-11 08:15] LABS: Glucose - Point of Care 146 mg/dl (70-99)
[2024-03-11] MEDS: NOVOLOG FLEXPEN-MODERATE RESISTANCE SC (08:47)
[2024-03-11] MEDS: LOW STRENGTH ASPIRIN 81 MG PO (08:51)
[2024-03-11] MEDS: IMDUR (EXTENDED RELEASE) 30 MG PO (08:51)
[2024-03-11] MEDS: ELIQUIS 5 MG PO ×2 (08:51→21:49)
[2024-03-11] MEDS: PACERONE 200 MG PO (08:51)
[2024-03-11] MEDS: DULCOLAX 5 MG PO (08:51)
[2024-03-11] MEDS: KCL 20 MEQ PO ×3 (08:52→21:49)
[2024-03-11] MEDS: FARXIGA 10 MG PO (08:52)
[2024-03-11] MEDS: TOPROL XL 25 MG PO (08:52)
[2024-03-11] MEDS: LASIX 80 MG IV (08:53)
[2024-03-11] MEDS: ROXICODONE 2.5 MG PO ×2 (08:58→21:53)
[2024-03-11] MEDS: DIAMOX 250 MG PO ×2 (08:59→21:49)
[2024-03-11] MEDS: MIRALAX PO (10:10)
--- NOTE | 2024-03-11 10:14 | W.PN.NEPH.PH ---
Today's Communication / Plan
-
reduce lasix
Assessment/Plan
-
Assessment:
CALVIN on CKD (bl Cr 1.3)
s/p cardiac arrest on 03/07 evening
acute on chronic hypoxic/hypercapnic resp failure
COPD
hx of stroke
pAfib
T2DM
Plan:
continue diamox
reduce lasix to 40mg IV daily
hold farxiga
follow BMP
midodrine 5 mg po TID
prognosis is poor
i had a long discussion with the patient regarding prognosis. He wishes to remain full code and wants everything done. We discussed poor prognosis and likely from cardiac arrest. We discussed cardiorenal syndrome and probable dialysis. He
would do dialysis. We discussed poor QoL on dialysis as well. He said he wanted to meet his future grandchild, to be born early 2024.
-
-
Date of Service: March 11, 2024
CC / HPI / ROS
-
Chief Complaint:
alkalosis/CALVIN
History of Present Illness:
CALIVN/Cr up to 2.8
BUN up to 107
metabolic alkalosis better on diamox 35
weights are lower 87.9
did not get lasix last night
on 4L NC
Review of Systems:
feels extremely SOB still
no CP
Labs
-
Labs:
WBC 10.3 10^3/uL (4.8-10.8) 03/10/24 03:53
RBC 3.53 10^6/uL (4.70-6.10) L 03/10/24 03:53
Hgb 10.1 g/dL (13.0-18.0) L 03/10/24 03:53
Hct 32.2 % (39.0-52.0) L 03/10/24 03:53
Plt Count 186 10^3/uL (130-400) 03/10/24 03:53
Sodium 133 mmol/L (135-145) L 03/11/24 06:06
Potassium 3.4 mmol/L (3.5-5.1) L 03/11/24 06:06
Chloride 86 mmol/L (98-107) L 03/11/24 06:06
Carbon Dioxide 35 mmol/L (22-30) H 03/11/24 06:06
BUN 107 mg/dl (9-20) H* 03/11/24 06:06
Creatinine 2.8 mg/dL (0.7-1.3) H 03/11/24 06:06
eGFR 24.74 03/11/24 06:06
Glucose 151 mg/dl (70-99) H 03/11/24 06:06
Calcium 9.1 mg/dl (8.4-10.2) 03/11/24 06:06
Jdo-P-Jzrtrufsebm Pept 99640 pg/ml 03/07/24 20:19
Albumin 3.9 g/dl (3.5-5.0) 03/11/24 06:06
Physical Exam
-
Vital Signs:
Vital Signs
Temp Pulse Resp BP Pulse Ox
97.3 F 67 16 90/70 100
03/11/24 07:42 03/11/24 08:00 03/11/24 07:47 03/11/24 07:47 03/11/24 07:47
Cardiovascular:: Regular rate and rhythm
Respiratory:: Bilateral: Coarse
Lung Excursion:: Normal
Abdomen:: Nontender and Soft
Bowel Sounds:: Normal
Extremity Edema:: +1: Bilateral:
--- NOTE | 2024-03-11 10:29 | PTCARENOTE ---
Assumed care of pt from night RN. Pt received awake and alert, Ox3. VSS, CM shows AV pacing 70's, POX 100% on 4 liters. Yan remains in as per Nephrology. Daily weight to be done when pt gets up per his request. Roxicodone 2.5 mg given as per
MAR for 6/10 chest discomfort, (from CPR). Will continue to monitor closely.
--- NOTE | 2024-03-11 10:40 | W.PN.CD ---
Today's Communication / Plan
-
IV diuresis
Impression / Plan
-
Background: 63 y/o male with SEVERE COPD, on home O2, chronic HFrEF, severe ischemic cardiomyopathy, prior [place], CAD (s/p LAD and LCx PCIs and RCA CAR SUPPLIER,), hx of CVA, paroxysmal atrial fibrillation, and prior cardiac arrest (08/2022), DM.
Outpatient deputy director is Dr. Galloway and his EP doctor is Dr. Flores at [facility]. Has seen Dr. Rodriguez and may transition back to our practice.
Pulmonary: Justo
Ischemic Cardiomyopathy with chronic HFrEF now acute severe HF; poor insight into severity of condition
- RHC below, but with severely elevated filling pressures consistent with severe HFrEF exacerbation
- IV diuresis IV Lasix
- standing weights
- overall prognosis is extremely guarded discussed high likely of readmission given severity of lung disease and ICMO with severe HF
- I discussed hospice and that he should potentially consider this
- cont metoprolol limited in GDMT by hypotension and now CALVIN
Acute on chronic kidney injury
- Cr 1.2 to 1.3 in May 2023
- Cr 2.3 in Jul 2021, Today 2.8
- cont diuresis nephrology following
Admitted with 20 hrs of CP
- Troponin pattern so far argues against ACS/IN
- Last cath 07/12/2023 led to med rx with chronic 100% pRCA and patent stents and no other obstructive CAD
Cardiac arrest on IMU had arrest with 3 min CPR and per Dr Powers first AF then clearly VT was cause of arrest
- EKG abnormal but chronically abnormal, no ST Elevation, ST depression old,
- troponins are not significantly elevated
SEVERE COPD, follows with Dr. Kemp, on home O2
Hx of VT
Upgraded to BiV ICD at [facility]
Known Chronic CAD, last cath led to med rx 07/12/2023, see below
AFib: NOT PERMANENT: IN SINUS/atrial paced on our EKG here at on 06/04/2023
- Paroxysmal
- On Eliquis, [id number] at least 5 (HF, HTN, DM, stroke, vacular disease)
- On AMIO, presumably for VT and AFib
Prior CVA
Ambulatory dysfunction/Chronic pain, knees, hips, walks with a walker
Hx HTN
Subjective:
No new complaints
Data:
RHC: HEMODYNAMIC FINDINGS (mmHg):RA(a,v,m): 29, 29, 27; RV(s/d,EDP): 64/21, 28; PA(s/d/m): 66/46, 53; PCWP(a,v,m): 47, 48, 44; Cardiac Output/Index (l/min / l/min/m2):Estimated Maria E Method: 2.8 /1.4
PA: 35% on BiPAP with 2 L of oxygen by nasal cannula
LV: 94% on BiPAP with 2 L oxygen by nasal cannula
Cath 07/12/2023 ([facility]): R dom, 100% pRCA, filled by L>R collaterals, patent long stent pLCx, patent long stent mLAD. LVEDP 8, no
LE arterial WAQAR 04/28/2023: Normal WAQAR bilateral
Graciela Nuc stress 04/16/2023: LV SEVERELY dilated, LVDV 594 ml, LVSV 571 ml, calculated LVEF 4%. Large fixed defects: mid to distal anterior wall, apex, and mid to distal inf wall, minimal reversible, thinning inferobasal wall
Echo 01/05/2023: LV severely dilated, LVEF 20-25%, RV normal size/function, minimal AoV sclerosis, mild AR/MR, mild LAE, est PASP normal, IVC normal
Our last ICD check 01/21/2022: at that time a dual ICD, no recent AFib, no recent VT, AP 26%, STAFF AUDITOR 2%.. PAF, 2 episodes, longest 6 hrs, seen on check from 02/2019
Pulmonary Office Note: Follows with Bernard Kemp MD. Known SEVERE COPD
Spirometry 10/14/2023: FEV1/FVC 35%, FEV1 0.58 L-70%, FVC 1.64 L (36%.� Very severe airflow obstruction with a restriction.
DLCO 09/16/2020: 7.64; 27%
Physical Exam
Vital Signs/Labs
Vital Signs
Temp Pulse Resp BP Pulse Ox
97.3 F 67 16 90/70 100
03/11/24 07:42 03/11/24 08:00 03/11/24 07:47 03/11/24 07:47 03/11/24 10:15
03/10/24 03/11/24 03/12/24
06:59 06:59 06:59
Actual Weight 199 lb 4.766 oz 193 lb 12.581 oz
03/10/24 03:53
03/11/24 06:06
PT 20.1 Sec (11.4-14.6) H 03/08/24 01:57
INR 1.74 03/08/24 01:57
APTT 32.7 Sec (23.4-35.0) 03/08/24 01:57
Magnesium 2.7 mg/dl (1.6-2.3) H 03/11/24 06:06
03/07/24
20:19
Jww-V-Yqivxtvkeyo Pept [id number]
LAB Results
03/08/24 03/08/24 03/08/24
14:44 15:31 20:46
Troponin I Cancelled 0.289 H* 0.281 H*
03/09/24
04:48
Troponin I 0.272 H*
Physical Exam
Constitutional: No acute distress
Cardiovascular: Rhythm & rate is regular and Pedal edema is absent
Respiratory: Other (decreased b/s b/l )
GI: Soft
Neuro/Psych: AO x 3
Data Reviewed
-
Date of Service: March 11, 2024
EKG: Tracing Personally Visualized and interpreted (paced)
Echo: Report Reviewed by me
Labs: Labs Reviewed by me
[2024-03-11] MEDS: ProAmatine 5 MG PO ×2 (10:49→18:51)
--- NOTE | 2024-03-11 10:53 | W.PN.HOSP.TC ---
Today's Communication/Plan
-
Replete potassium
Assessment / Plan
Assessment / Plan
Gen-AAOx3, NAD, BiPAP mask
HEENT-NC, AT, anicteric, clear oral mm
Neck-supple
CV-reg, no M, +S1/S2, tender anterior chest to palpation
Lungs-clear B/L
Abd-soft, NT, ND
Ext-left pedal edema
Musculoskeletal-no cyanosis, clubbing
Skin-warm and dry
Neuro-grossly non-focal
Psych-calm, cooperative
In-hospital cardiac arrest -March 07 evening. Required 3 minutes of CPR then had ROSC. Defibrillator did not fire as his threshold is 171 bpm. Cardiology believes that either fast AF/AT or VT precipitated his arrest. ICD was reprogrammed to treat
V. tach at 160 bpm.
Acute on chronic hypoxic/hypercapnic respiratory failure -likely multifactorial etiology including COPD, questionable heart failure, other. Currently on 4 L nasal cannula oxygen.
Chest x-ray not significantly impressive but read as mild heart failure.
Patient uses a home ventilator at nighttime, 4 to 6 L of nasal cannula oxygen during the day.
Acute on chronic heart failure with reduced EF exacerbation -confirmed diagnosis with elevated PCWP of 47 on RHC. Echocardiogram shows LVEF of 10 to 15%, severe diffuse global hypokinesis, RV not well-visualized, mild TR. He is on furosemide 80 mg
twice daily at home. Defer diuresis to nephrology, cardiology. I's and O's remain negative. Weight has plateaued at 90 kg.
Chronic metabolic alkalosis -acetazolamide started by nephrology. Bicarb 36 today.
Hypokalemia -continue repletion. Magnesium 2.5.
Hyponatremia -133. Monitor on diuretics.
Troponin elevation -likely acute nonischemic myocardial injury. Troponin trending down.
BiV ICD
CALVIN on CKD 3A -creatinine 2.8 today, slowly rising. Yan catheter placed. Nephrology following. Possible cardiorenal syndrome versus hypotension induced ATN versus other. Nephrology has reduced dose of furosemide to once daily.
COPD without exacerbation
History of stroke
Paroxysmal atrial fibrillation -on chronic amiodarone, Eliquis.
DM2 with hyperglycemia -hemoglobin A1c 8.0%, much improved compared to last year. At home, he is on glipizide 5 mg daily, Farxiga 10 mg daily, Lantus 23 units at bedtime. Patient received 23 units of Lantus last night, glucose 151 this morning,
daytime glucoses over 200. Continue Lantus, add aspart with meals. Continue low resistance aspart corrective scale.
LOREN
Full code -discussed with patient, he wants to remain a full code. Unfortunately his overall prognosis remains poor given severe cardiomyopathy and presentation with severe respiratory failure. Now developing multiorgan failure. Patient seems to
lack insight into his overall prognosis. During my goals of care discussion, he was too focused on talking about tuna fish and other dietary modifications. I tried to explain to him that he really should focus on quality of life given his poor
prognosis and limited life span. Hospice should be considered. He states that he wants to live to see his first grandchild, expected around September or October.
Anticipated Discharge: > 48 hours
Subjective/Interval History
-
Date of Service: March 11, 2024
Patient seen and examined. Still having chest pain due to CPR.
Objective Data
-
Labs:
Laboratory Results
03/11/24 03/11/24
04:33 06:06
Sodium Cancelled 133 L
Potassium Cancelled 3.4 L
Chloride Cancelled 86 L
Carbon Dioxide Cancelled 35 H
BUN Cancelled 107 H*
Creatinine Cancelled 2.8 H
Glucose Cancelled 151 H
Calcium Cancelled 9.1
Total Bilirubin Cancelled 1.1
AST Cancelled 46
ALT Cancelled 48
Alkaline Phosphatase Cancelled 80
Vital Signs:
Vital Signs
Temp Pulse Resp BP Pulse Ox
97.3 F 67 16 90/70 100
03/11/24 07:42 03/11/24 08:00 03/11/24 07:47 03/11/24 07:47 03/11/24 10:15
I&O
03/10/24 03/11/24 03/12/24
06:59 06:59 06:59
Intake Total 960 / 960 1110 / 1110
Output Total 2350 / 2350 1150 / 1150
Balance -1390 / -1390 -40 / -40
Review of Systems
-
History Source: Patient
All other systems: Reviewed and negative
[2024-03-11 12:30] LABS: Glucose - Point of Care 186 mg/dl (70-99)
[2024-03-11] MEDS: NOVOLOG FLEXPEN-MODERATE RESISTANCE 1 UNITS SC ×2 (12:57→18:51)
[2024-03-11] MEDS: NOVOLOG FLEXPEN 4 UNITS SC ×2 (12:58→18:52)
[2024-03-11] MEDS: ATIVAN 0.5 MG PO (13:03)
[2024-03-11 18:52] LABS: Glucose - Point of Care 168 mg/dl (70-99)
[2024-03-11] MEDS: FLOMAX 0.4 MG PO (21:49)
[2024-03-11] MEDS: PROTONIX 40 MG PO (21:49)
[2024-03-11] MEDS: LIPITOR 80 MG PO (21:49)
[2024-03-11] MEDS: MELATONIN 5 MG PO (21:49)
[2024-03-11] MEDS: LANTUS 0.23 UNITS SC (22:21)
[2024-03-11] MEDS: LIDOCAINE 4% PATCH TOPICAL ×2 (22:22→22:53)
[2024-03-11 22:27] LABS: Glucose - Point of Care 213 mg/dl (70-99)
[2024-03-12] VITALS (10 sets, daily range): BP systolic 94–104; BP diastolic 67–77; PULSE 2–78; BMI 29.3
[2024-03-12] MEDS: ProAmatine 5 MG PO ×3 (03:29→17:58)
[2024-03-12] MEDS: ROXICODONE 2.5 MG PO ×5 (03:31→21:11)
[2024-03-12 06:48] LABS: Hematocrit 32.9 % (39.0-52.0); Hemoglobin 10.4 g/dL (13.0-18.0); Mean Corp Hgb Conc. 31.6 g/dL (33.0-37.0); Mean Corpuscular Hgb 29.4 pg (27.0-31.0); Mean Corpuscular Volume 92.9 fL (80.0-94.0); Mean Platelet Volume 11.6 fL (7.4-10.4); Platelet Count 162 10^3/uL (130-400); Red Blood Cell Count 3.54 10^6/uL (4.70-6.10); Red Cell Dist. Width 15.3 % (11.5-14.5); White Blood Cell Count 8.5 10^3/uL (4.8-10.8)
[2024-03-12 07:50] LABS: Blood Urea Nitrogen 106 mg/dl (9-20); Calcium 9.4 mg/dl (8.4-10.2); Carbon Dioxide 35 mmol/L (22-30); Chloride 88 mmol/L (98-107); Estimated Creatinine Clearance 28 ml/min; Glucose 136 mg/dl (70-99); Sodium 135 mmol/L (135-145); eGFR 25.84
[2024-03-12] MEDS: SPIRIVA RESPIMAT 2.5 MCG 2 PUFF INH (07:52)
[2024-03-12] MEDS: FLOVENT 220MCG 2 PUFF INH ×2 (07:52→21:25)
[2024-03-12] MEDS: LASIX 40 MG IV (08:20)
[2024-03-12] MEDS: IMDUR (EXTENDED RELEASE) 30 MG PO (08:20)
[2024-03-12] MEDS: ELIQUIS 5 MG PO ×2 (08:21→20:57)
[2024-03-12] MEDS: DIAMOX 250 MG PO (08:21)
[2024-03-12] MEDS: KCL 20 MEQ PO (08:21)
[2024-03-12] MEDS: LOW STRENGTH ASPIRIN 81 MG PO (08:21)
[2024-03-12] MEDS: PACERONE 200 MG PO (08:21)
[2024-03-12] MEDS: TOPROL XL 25 MG PO (08:22)
[2024-03-12] MEDS: DULCOLAX 5 MG PO (08:22)
[2024-03-12] MEDS: NOVOLOG FLEXPEN 4 UNITS SC ×3 (08:24→16:24)
[2024-03-12] MEDS: NOVOLOG FLEXPEN-MODERATE RESISTANCE SC (08:24)
--- NOTE | 2024-03-12 08:56 | W.PN.HOSP.TC ---
Today's Communication/Plan
-
Nutrition consult
Diuretics
Assessment / Plan
Assessment / Plan
Gen-AAOx3, NAD, BiPAP mask
HEENT-NC, AT, anicteric, clear oral mm
Neck-supple
CV-reg, no M, +S1/S2, tender anterior chest to palpation
Lungs-clear B/L
Abd-soft, NT, ND
Ext-left pedal edema
Musculoskeletal-no cyanosis, clubbing
Skin-warm and dry
Neuro-grossly non-focal
Psych-calm, cooperative
In-hospital cardiac arrest -March 07 evening. Required 3 minutes of CPR then had ROSC. Defibrillator did not fire as his threshold is 171 bpm. Cardiology believes that either fast AF/AT or VT precipitated his arrest. ICD was reprogrammed to treat
V. tach at 160 bpm.
Acute on chronic hypoxic/hypercapnic respiratory failure -likely multifactorial etiology including COPD, questionable heart failure, other. Currently on 4 L nasal cannula oxygen.
Chest x-ray not significantly impressive but read as mild heart failure.
Patient uses a home ventilator at nighttime, 4 to 6 L of nasal cannula oxygen during the day.
Acute on chronic heart failure with reduced EF exacerbation -confirmed diagnosis with elevated PCWP of 47 on RHC. Echocardiogram shows LVEF of 10 to 15%, severe diffuse global hypokinesis, RV not well-visualized, mild TR. He is on furosemide 80 mg
twice daily at home. Defer diuresis to nephrology, cardiology. I's and O's remain negative. Weight relatively unchanged.
Chronic metabolic alkalosis -acetazolamide started by nephrology. Bicarb 35 today.
Hypokalemia -continue repletion. Magnesium 2.5.
Hyponatremia -133. Monitor on diuretics.
Troponin elevation -likely acute nonischemic myocardial injury. Troponin trending down.
BiV ICD
CALVIN on CKD 3A -creatinine 2.7 today. Yan catheter placed. Nephrology following. Possible cardiorenal syndrome versus hypotension induced ATN versus other. Nephrology has reduced dose of furosemide to once daily.
COPD without exacerbation
History of stroke
Paroxysmal atrial fibrillation -on chronic amiodarone, Eliquis.
DM2 with hyperglycemia -hemoglobin A1c 8.0%, much improved compared to last year. At home, he is on glipizide 5 mg daily, Farxiga 10 mg daily, Lantus 23 units at bedtime. Patient received 23 units of Lantus last night, glucose 136 this morning.
Continue current dose of Lantus, aspart 4 units with meals, moderate resistance aspart scale.
LOREN
Full code -discussed with patient, he wants to remain a full code. Unfortunately his overall prognosis remains poor given severe cardiomyopathy and presentation with severe respiratory failure. Now developing multiorgan failure. Patient seems to
lack insight into his overall prognosis. During my goals of care discussion, he was too focused on talking about tuna fish and other dietary modifications. I tried to explain to him that he really should focus on quality of life given his poor
prognosis and limited life span. Hospice should be considered. He states that he wants to live to see his first grandchild, expected around September or October.
Anticipated Discharge: > 48 hours
Subjective/Interval History
-
Date of Service: March 12, 2024
Patient seen and examined. No new complaints.
Objective Data
-
Labs:
Laboratory Results
03/12/24 03/12/24
05:36 07:18
WBC 8.5
Hgb 10.4 L
Hct 32.9 L
Plt Count 162
Sodium Cancelled 135
Potassium Cancelled 3.0 L
Chloride Cancelled 88 L
Carbon Dioxide Cancelled 35 H
BUN Cancelled 106 H*
Creatinine Cancelled 2.7 H
Glucose Cancelled 136 H
Calcium Cancelled 9.4
Vital Signs:
Vital Signs
Temp Pulse Resp BP Pulse Ox
97.5 F 62 18 101/67 98
03/12/24 07:26 03/12/24 07:59 03/12/24 07:59 03/12/24 07:25 03/12/24 07:26
I&O
03/11/24 03/12/24 03/13/24
06:59 06:59 06:59
Intake Total 1110 / 1110 845 / 845
Output Total 1150 / 1150 2700 / 2700
Balance -40 / -40 -1855 / -1855
Review of Systems
-
History Source: Patient
All other systems: Reviewed and negative
[2024-03-12] MEDS: KCL 40 MEQ PO ×2 (09:07→20:57)
--- NOTE | 2024-03-12 09:22 | PTCARENOTE ---
Assumed care of pt from night RN. Pt received awake and alert, on Bipap / with 4 l n/c. VSS, CM shows AV pacing 70's, POX 98% on Bipap. Roxicodone given as per MAR for 02/20 chest pain, as well as 40 meq's of KCl for am K of 3.0. Yan cath
to gravity drainage with dark dom urine. Pt refusing to get up for weight, will re-attempt.
--- NOTE | 2024-03-12 11:49 | W.PN.CD ---
Today's Communication / Plan
-
IV diuresis
Impression / Plan
-
Background: 63 y/o male with SEVERE COPD, on home O2, chronic HFrEF, severe ischemic cardiomyopathy, prior [place], CAD (s/p LAD and LCx PCIs and RCA AERIAL SPRAYER,), hx of CVA, paroxysmal atrial fibrillation, and prior cardiac arrest (08/2022), DM.
Outpatient field appraiser is Dr. Galloway and his EP doctor is Dr. Flores at [facility]. Has seen Dr. Rodriguez and may transition back to our practice.
Pulmonary: Justo
Ischemic Cardiomyopathy with chronic HFrEF now acute severe HF; poor insight into severity of condition
- RHC below, but with severely elevated filling pressures consistent with severe HFrEF exacerbation
- IV diuresis IV Lasix
- standing weights, unclear weight up over last two days
- overall prognosis is extremely guarded discussed high likely of readmission given severity of lung disease and ICMO with severe HF
- I discussed hospice and that he should potentially consider this
- cont metoprolol limited in GDMT by hypotension and now CALVIN
Acute on chronic kidney injury
- Cr 1.2 to 1.3 in May 2023
- Cr 2.3 in Jul 2021, Today 2.8
- cont diuresis nephrology following
Admitted with 20 hrs of CP
- Troponin pattern so far argues against ACS/UT
- Last cath 07/12/2023 led to med rx with chronic 100% pRCA and patent stents and no other obstructive CAD
Cardiac arrest on IMU had arrest with 3 min CPR and per Dr Powers first AF then clearly VT was cause of arrest
- EKG abnormal but chronically abnormal, no ST Elevation, ST depression old,
- troponins are not significantly elevated
SEVERE COPD, follows with Dr. Kemp, on home O2
Hx of VT
Upgraded to BiV ICD at [facility]
Known Chronic CAD, last cath led to med rx 07/12/2023, see below
AFib: NOT PERMANENT: IN SINUS/atrial paced on our EKG here at on 06/04/2023
- Paroxysmal
- On Eliquis, [id number] at least 5 (HF, HTN, DM, stroke, vacular disease)
- On AMIO, presumably for VT and AFib
Prior CVA
Ambulatory dysfunction/Chronic pain, knees, hips, walks with a walker
Hx HTN
Subjective:
No new complaints
Data:
RHC: HEMODYNAMIC FINDINGS (mmHg):RA(a,v,m): 29, 29, 27; RV(s/d,EDP): 64/21, 28; PA(s/d/m): 66/46, 53; PCWP(a,v,m): 47, 48, 44; Cardiac Output/Index (l/min / l/min/m2):Estimated Maria E Method: 2.8 /1.4
PA: 35% on BiPAP with 2 L of oxygen by nasal cannula
LV: 94% on BiPAP with 2 L oxygen by nasal cannula
Cath 07/12/2023 ([facility]): R dom, 100% pRCA, filled by L>R collaterals, patent long stent pLCx, patent long stent mLAD. LVEDP 8, no
LE arterial WAQAR 04/28/2023: Normal WAQAR bilateral
Graciela Nuc stress 04/16/2023: LV SEVERELY dilated, LVDV 594 ml, LVSV 571 ml, calculated LVEF 4%. Large fixed defects: mid to distal anterior wall, apex, and mid to distal inf wall, minimal reversible, thinning inferobasal wall
Echo 01/05/2023: LV severely dilated, LVEF 20-25%, RV normal size/function, minimal AoV sclerosis, mild AR/MR, mild LAE, est PASP normal, IVC normal
Our last ICD check 01/21/2022: at that time a dual ICD, no recent AFib, no recent VT, AP 26%, SUPERVISOR WELDING EQUIPMENT REPAIRER 2%.. PAF, 2 episodes, longest 6 hrs, seen on check from 02/2019
Pulmonary Office Note: Follows with Bernard Kemp MD. Known SEVERE COPD
Spirometry 10/14/2023: FEV1/FVC 35%, FEV1 0.58 L-70%, FVC 1.64 L (36%.� Very severe airflow obstruction with a restriction.
DLCO 09/16/2020: 7.64; 27%
Physical Exam
Vital Signs/Labs
Vital Signs
Temp Pulse Resp BP Pulse Ox
97.5 F 62 18 101/67 98
03/12/24 07:26 03/12/24 07:59 03/12/24 07:59 03/12/24 07:25 03/12/24 09:11
03/11/24 03/12/24 03/13/24
06:59 06:59 06:59
Actual Weight 193 lb 12.581 oz 198 lb 3.129 oz
03/12/24 05:36
03/12/24 07:18
PT 20.1 Sec (11.4-14.6) H 03/08/24 01:57
INR 1.74 03/08/24 01:57
APTT 32.7 Sec (23.4-35.0) 03/08/24 01:57
Magnesium 2.7 mg/dl (1.6-2.3) H 03/11/24 06:06
03/07/24
20:19
Gxa-H-Vxagzfpmjre Pept [id number]
Physical Exam
Constitutional: No acute distress
EENT: Anicteric
Cardiovascular: Rhythm & rate is regular and Pedal edema present (trace)
Respiratory: Other (poor air movement b/l )
GI: Soft
Neuro/Psych: AO x 3
Data Reviewed
-
Date of Service: March 12, 2024
EKG: Tracing Personally Visualized and interpreted (paced)
Echo: Report Reviewed by me
Labs: Labs Reviewed by me
[2024-03-12 12:08] LABS: Glucose - Point of Care 267 mg/dl (70-99)
[2024-03-12] MEDS: NOVOLOG FLEXPEN-MODERATE RESISTANCE 5 UNITS SC ×2 (12:08→16:23)
--- NOTE | 2024-03-12 12:15 | W.PN.NEPH.PH ---
Today's Communication / Plan
-
follow BMP
Assessment/Plan
-
Assessment:
CALVIN on CKD (bl Cr 1.3)
s/p cardiac arrest on 03/07 evening
acute on chronic hypoxic/hypercapnic resp failure
COPD
hx of stroke
pAfib
T2DM
Plan:
dc diamox. given severe COPD, he probably will always have some compensatory metabolic alkalosis
continue lasix to 40mg IV daily
holding farxiga
follow BMP
midodrine 5 mg po TID still, MAPs ok
replete K po
prognosis is poor
previously i had a long discussion with the patient regarding prognosis. He wishes to remain full code and wants everything done. We discussed poor prognosis and likely from cardiac arrest. We discussed cardiorenal syndrome and probable
dialysis. He would do dialysis. We discussed poor QoL on dialysis as well. I todl him I would not recommend diaylsis. He said he wanted to meet his future grandchild, to be born early 2024.
-
-
Date of Service: March 12, 2024
CC / HPI / ROS
-
Chief Complaint:
alkalosis/CALVIN
History of Present Illness:
CALVIN/Cr holding at 2.7
BUN high at 106
metabolic alkalosis stable at 35
weights are unchanged
on BiPAP
K low 3
Review of Systems:
feels extremely SOB still
no CP
Labs
-
Labs:
WBC 8.5 10^3/uL (4.8-10.8) 03/12/24 05:36
RBC 3.54 10^6/uL (4.70-6.10) L 03/12/24 05:36
Hgb 10.4 g/dL (13.0-18.0) L 03/12/24 05:36
Hct 32.9 % (39.0-52.0) L 03/12/24 05:36
Plt Count 162 10^3/uL (130-400) 03/12/24 05:36
Sodium 135 mmol/L (135-145) 03/12/24 07:18
Potassium 3.0 mmol/L (3.5-5.1) L 03/12/24 07:18
Chloride 88 mmol/L (98-107) L 03/12/24 07:18
Carbon Dioxide 35 mmol/L (22-30) H 03/12/24 07:18
BUN 106 mg/dl (9-20) H* 03/12/24 07:18
Creatinine 2.7 mg/dL (0.7-1.3) H 03/12/24 07:18
eGFR 25.84 03/12/24 07:18
Glucose 136 mg/dl (70-99) H 03/12/24 07:18
Calcium 9.4 mg/dl (8.4-10.2) 03/12/24 07:18
Cby-W-Bpezqizfrak Pept 34058 pg/ml 03/07/24 20:19
Albumin 3.9 g/dl (3.5-5.0) 03/11/24 06:06
Physical Exam
-
Vital Signs:
Vital Signs
Temp Pulse Resp BP Pulse Ox
97.5 F 66 18 101/67 100
03/12/24 11:58 03/12/24 11:58 03/12/24 11:58 03/12/24 07:25 03/12/24 11:58
Cardiovascular:: Regular rate and rhythm
Respiratory:: Bilateral: Coarse
Lung Excursion:: Normal
Abdomen:: Nontender and Soft
Bowel Sounds:: Normal
Extremity Edema:: None: Bilateral:
--- NOTE | 2024-03-12 14:15 | PTCARENOTE ---
At pt's request, I spoke with his sister, Maikel, who lives in [place] and updated her on his condition. She will be coming to [place] in the very near future to support him when he makes his children aware of his deteriorating condition.
[2024-03-12 16:22] LABS: Glucose - Point of Care 268 mg/dl (70-99)
[2024-03-12] MEDS: MIRALAX PO (16:25)
--- NOTE | 2024-03-12 16:43 | PTCARENOTE ---
Roxycodone given as per NOV for 04/22 chest pain.(From CPR)
--- NOTE | 2024-03-12 18:34 | PTCARENOTE ---
Unable to weigh pt today, as he refused to get OOB.
[2024-03-12 20:57] LABS: Glucose - Point of Care 236 mg/dl (70-99)
[2024-03-12] MEDS: LANTUS 0.23 UNITS SC (20:57)
[2024-03-12] MEDS: FLOMAX 0.4 MG PO (20:57)
[2024-03-12] MEDS: PROTONIX 40 MG PO (20:58)
[2024-03-12] MEDS: MELATONIN 5 MG PO (20:58)
[2024-03-12] MEDS: LIPITOR 80 MG PO (20:58)
[2024-03-12] MEDS: LIDOCAINE 4% PATCH 1 PATCH TOPICAL (21:13)
[2024-03-13] VITALS (10 sets, daily range): BP systolic 91–104; BP diastolic 69–79; PULSE 2–71; BMI 29.3
--- NOTE | 2024-03-13 01:09 | PTCARENOTE ---
VSS, AV paced on the monitor. Bipap on (18/10 with 4L O2) with pulse ox in the high 90's; pt. comfortable when not exerting himself. Gets easily SOB when taking meds/turning. Yan draining dom urine. Medicated with Oxycodone for sternal and
left leg discomfort with adequate relief obtained. Pt. sleeping most of shift, refusing to get OOB when awake.
[2024-03-13] MEDS: TYLENOL 650 MG PO (02:11)
[2024-03-13] MEDS: ROXICODONE 2.5 MG PO ×6 (02:11→23:33)
[2024-03-13] MEDS: ProAmatine 5 MG PO ×3 (02:11→17:58)
[2024-03-13 02:41] LABS: Hematocrit 34.5 % (39.0-52.0); Hemoglobin 10.7 g/dL (13.0-18.0); Mean Corpuscular Hgb 28.8 pg (27.0-31.0); Mean Platelet Volume 11.5 fL (7.4-10.4); Platelet Count 166 10^3/uL (130-400); Red Blood Cell Count 3.71 10^6/uL (4.70-6.10); Red Cell Dist. Width 15.3 % (11.5-14.5)
--- NOTE | 2024-03-13 02:43 | PTCARENOTE ---
Attempted to get pt. OOB to use BSC and obtain AM weight but pt. very weak, only able to stand for a couple of seconds then had to sit back down. Weighed on bed scale.
[2024-03-13 02:56] LABS: Blood Urea Nitrogen 99 mg/dl (9-20); Calcium 9.3 mg/dl (8.4-10.2); Carbon Dioxide 34 mmol/L (22-30); Chloride 88 mmol/L (98-107); Estimated Creatinine Clearance 29 ml/min; Glucose 217 mg/dl (70-99); Potassium 3.6 mmol/L (3.5-5.1); Sodium 135 mmol/L (135-145); eGFR 27.04
[2024-03-13] MEDS: FLOVENT 220MCG 2 PUFF INH (07:26)
[2024-03-13] MEDS: SPIRIVA RESPIMAT 2.5 MCG 2 PUFF INH (07:27)
[2024-03-13 07:49] LABS: Glucose - Point of Care 239 mg/dl (70-99)
[2024-03-13] MEDS: NOVOLOG FLEXPEN 4 UNITS SC ×3 (07:55→17:54)
[2024-03-13] MEDS: NOVOLOG FLEXPEN-MODERATE RESISTANCE 3 UNITS SC ×2 (07:55→12:52)
--- NOTE | 2024-03-13 08:15 | W.PN.HOSP.TC ---
Addendum entered and electronically signed by James Mercer MD 03/13/24 17:27:
I had lengthy discussion with sister (patient gave permission to discuss his current condition and prognosis)--> she seems to understand clearly and she will communicate this to patient and rest of his family.
Original Note:
Today's Communication/Plan
-
IV Lasix.
Assessment / Plan
Assessment / Plan
Gen-AAOx3, NAD, BiPAP mask
HEENT-NC, AT, anicteric, clear oral mm
Neck-supple
CV-reg, no M, +S1/S2, tender anterior chest to palpation
Lungs-clear B/L
Abd-soft, NT, ND
Ext-left pedal edema
Musculoskeletal-no cyanosis, clubbing
Skin-warm and dry
Neuro-grossly non-focal
Psych-calm, cooperative
A/P:
In-hospital cardiac arrest -March 07 evening. Required 3 minutes of CPR then had ROSC. Defibrillator did not fire as his threshold is 171 bpm. Cardiology believes that either fast AF/AT or VT precipitated his arrest. ICD was reprogrammed to treat
V. tach at 160 bpm.
Acute on chronic hypoxic/hypercapnic respiratory failure -likely multifactorial etiology including COPD, heart failure, other. Currently on 4 L nasal cannula oxygen.
On IV diuresis per cardiology and nephro.
Patient uses a home ventilator at nighttime, 4 to 6 L of nasal cannula oxygen during the day.
Acute on chronic heart failure with reduced EF exacerbation -confirmed diagnosis with elevated PCWP of 47 on RHC. Echocardiogram shows LVEF of 10 to 15%, severe diffuse global hypokinesis, RV not well-visualized, mild TR. He is on furosemide 80 mg
twice daily at home. Currently on IV Lasix 40 mg daily. I's and O's remain negative. Weight relatively unchanged.
Chronic metabolic alkalosis -acetazolamide started by nephrology. Bicarb 34 today.
Hypokalemia -replete and trend when necessary
Hyponatremia -135 today
Troponin elevation -likely acute nonischemic myocardial injury. Troponin trending down.
BiV ICD
CALVIN on CKD 3A -creatinine 2.6 today. Yan catheter placed. Nephrology following. Possible cardiorenal syndrome versus hypotension induced ATN versus other. Nephrology has reduced dose of furosemide to once daily.
COPD without exacerbation
History of stroke
Paroxysmal atrial fibrillation -on chronic amiodarone, Eliquis.
DM2 with hyperglycemia -hemoglobin A1c 8.0%, much improved compared to last year. At home, he is on glipizide 5 mg daily, Farxiga 10 mg daily, Lantus 23 units at bedtime. Patient received 23 units of Lantus last night, glucose 136 this morning.
Continue current dose of Lantus, aspart 4 units with meals, moderate resistance aspart scale.
LOREN
Full code -discussed with patient, he wants to remain a full code. Unfortunately his overall prognosis remains poor given severe cardiomyopathy and presentation with severe respiratory failure. Now developing multiorgan failure. Patient seems to
lack insight into his overall prognosis. During Dr Choi goals of care discussion, he was too focused on talking about tuna fish and other dietary modifications. Dr. Choi tried to explain to him that he really should focus on quality of life
given his poor prognosis and limited life span. Hospice should be considered. He states that he wants to live to see his first grandchild, expected around September or October.
Time spent 55 minutes
Anticipated Discharge: > 48 hours
Subjective/Interval History
-
Date of Service: March 13, 2024
Patient on BiPAP this morning. Still complains of shortness of breath. Looks frail overall. Complains of pain from CPR. Afebrile
Objective Data
-
Labs:
Laboratory Results
03/13/24
02:21
WBC 10.0
Hgb 10.7 L
Hct 34.5 L
Plt Count 166
Sodium 135
Potassium 3.6
Chloride 88 L
Carbon Dioxide 34 H
BUN 99 H
Creatinine 2.6 H
Glucose 217 H
Calcium 9.3
Vital Signs:
Vital Signs
Temp Pulse Resp BP Pulse Ox
97.8 F 71 18 100/72 100
03/13/24 07:30 03/13/24 08:00 03/13/24 07:31 03/13/24 07:53 03/13/24 07:31
I&O
03/12/24 03/13/24 03/14/24
06:59 06:59 06:59
Intake Total 845 / 845 480 / 480
Output Total 2700 / 2700 3050 / 3050
Balance -1855 / -1855 -2570 / -2570
--- NOTE | 2024-03-13 08:44 | W.PN.NEPH.PH ---
Today's Communication / Plan
-
Observe on IV lasix
If no change in weight tomorrow may need to increase to 40 mg IV twice daily
Assessment/Plan
-
Assessment:
CALVIN on CKD (bl Cr 1.3)
s/p cardiac arrest on 03/07 evening
acute on chronic hypoxic/hypercapnic resp failure
COPD
hx of stroke
pAfib
T2DM
Plan:
diamox off. given severe COPD, he probably will always have some compensatory metabolic alkalosis
continue lasix to 40mg IV daily
holding farxiga
follow BMP
midodrine 5 mg po TID still, MAPs ok but SBP ~100
replete K po
prognosis is poor
previously i had a long discussion with the patient regarding prognosis. He wishes to remain full code and wants everything done. We discussed poor prognosis and likely from cardiac arrest. We discussed cardiorenal syndrome and probable
dialysis. He would do dialysis. We discussed poor QoL on dialysis as well. I todl him I would not recommend diaylsis. This may not even be clinical feasible due to his hemodynamic instability. he said he wanted to meet his future grandchild, to be
born early 2024.
-
-
Date of Service: March 13, 2024
CC / HPI / ROS
-
Chief Complaint:
alkalosis/CALVIN
History of Present Illness:
CALVIN/Cr holding at 2.6
BUN down to 80
metabolic alkalosis stable at 34
weights are unchanged
on BiPAP
Review of Systems:
feels extremely SOB still
no CP
Labs
-
Labs:
WBC 10.0 10^3/uL (4.8-10.8) 03/13/24 02:21
RBC 3.71 10^6/uL (4.70-6.10) L 03/13/24 02:21
Hgb 10.7 g/dL (13.0-18.0) L 03/13/24 02:21
Hct 34.5 % (39.0-52.0) L 03/13/24 02:21
Plt Count 166 10^3/uL (130-400) 03/13/24 02:21
Sodium 135 mmol/L (135-145) 03/13/24 02:21
Potassium 3.6 mmol/L (3.5-5.1) 03/13/24 02:21
Chloride 88 mmol/L (98-107) L 03/13/24 02:21
Carbon Dioxide 34 mmol/L (22-30) H 03/13/24 02:21
BUN 99 mg/dl (9-20) H 03/13/24 02:21
Creatinine 2.6 mg/dL (0.7-1.3) H 03/13/24 02:21
eGFR 27.04 03/13/24 02:21
Glucose 217 mg/dl (70-99) H 03/13/24 02:21
Calcium 9.3 mg/dl (8.4-10.2) 03/13/24 02:21
Ldf-[id number]-Ykgxxulmjqm Pept 14816 pg/ml 03/07/24 20:19
Albumin 3.9 g/dl (3.5-5.0) 03/11/24 06:06
Physical Exam
-
Vital Signs:
Vital Signs
Temp Pulse Resp BP Pulse Ox
97.8 F 71 18 100/72 100
03/13/24 07:30 03/13/24 08:00 03/13/24 07:31 03/13/24 07:53 03/13/24 07:31
Cardiovascular:: Regular rate and rhythm
Respiratory:: Bilateral: Coarse
Lung Excursion:: Normal
Abdomen:: Nontender and Soft
Bowel Sounds:: Normal
Extremity Edema:: None: Bilateral:
Yan Catheter: No
[2024-03-13] MEDS: DULCOLAX 5 MG PO (09:02)
[2024-03-13] MEDS: ELIQUIS 5 MG PO ×2 (09:02→19:34)
[2024-03-13] MEDS: IMDUR (EXTENDED RELEASE) 30 MG PO (09:03)
[2024-03-13] MEDS: LOW STRENGTH ASPIRIN 81 MG PO (09:03)
[2024-03-13] MEDS: KCL 40 MEQ PO ×2 (09:03→19:32)
[2024-03-13] MEDS: TOPROL XL 25 MG PO (09:03)
[2024-03-13] MEDS: MIRALAX 17 GRAMS PO (09:04)
[2024-03-13] MEDS: PACERONE 200 MG PO (09:04)
[2024-03-13] MEDS: LASIX 40 MG IV (09:04)
[2024-03-13] MEDS: FLUSH (NSS) 2 FLUSH IV (09:05)
--- NOTE | 2024-03-13 09:54 | W.PN.CD ---
Today's Communication / Plan
-
IV diuresis for severe HF
Impression / Plan
-
Background: 63 y/o male with SEVERE COPD, on home O2, chronic HFrEF, severe ischemic cardiomyopathy, prior [place], CAD (s/p LAD and LCx PCIs and RCA INSURANCE BROKER,), hx of CVA, paroxysmal atrial fibrillation, and prior cardiac arrest (08/2022), DM.
Outpatient queen producer is Dr. Galloway and his EP doctor is Dr. Flores at [facility]. Has seen Dr. Rodriguez and may transition back to our practice.
Pulmonary: Justo
Ischemic Cardiomyopathy with chronic HFrEF now acute severe HF; poor insight into severity of condition
- RHC below, but with severely elevated filling pressures consistent with severe HFrEF exacerbation
- IV diuresis IV Lasix
- standing weights if able, left ankle pain limiting, urine output 2.5 L over last 24 hrs, weights should start coming down
- overall prognosis is extremely guarded discussed high likely of readmission given severity of lung disease and ICMO with severe HF
- I discussed hospice and that he should potentially consider this
- cont metoprolol limited in GDMT by hypotension and now CALVIN
Acute on chronic kidney injury
- Cr 1.2 to 1.3 in May 2023
- Cr 2.3 in Jul 2021, Today 2.6 slowly downtrending
- cont diuresis nephrology following
Admitted with 20 hrs of CP
- Troponin pattern so far argues against ACS/[place]
- Last cath 07/12/2023 led to med rx with chronic 100% pRCA and patent stents and no other obstructive CAD
Cardiac arrest on IMU had arrest with 3 min CPR and per Dr Powers first AF then clearly VT was cause of arrest
- EKG abnormal but chronically abnormal, no ST Elevation, ST depression old
- troponins are not significantly elevated
SEVERE COPD, follows with Dr. Kemp, on home O2
Hx of VT
Upgraded to BiV ICD at [facility]
Known Chronic CAD, last cath led to med rx 07/12/2023, see below
AFib: NOT PERMANENT: IN SINUS/atrial paced on our EKG here at on 06/04/2023
- Paroxysmal
- On Eliquis, [id number] at least 5 (HF, HTN, DM, stroke, vacular disease)
- On AMIO, presumably for VT and AFib
Prior CVA
Ambulatory dysfunction/Chronic pain, knees, hips, walks with a walker
Hx HTN
Subjective:
No new complaints
Data:
RHC: HEMODYNAMIC FINDINGS (mmHg):RA(a,v,m): 29, 29, 27; RV(s/d,EDP): 64/21, 28; PA(s/d/m): 66/46, 53; PCWP(a,v,m): 47, 48, 44; Cardiac Output/Index (l/min / l/min/m2):Estimated Maria E Method: 2.8 /1.4
PA: 35% on BiPAP with 2 L of oxygen by nasal cannula
LV: 94% on BiPAP with 2 L oxygen by nasal cannula
Cath 07/12/2023 ([facility]): R dom, 100% pRCA, filled by L>R collaterals, patent long stent pLCx, patent long stent mLAD. LVEDP 8, no
LE arterial WAQAR 04/28/2023: Normal WAQAR bilateral
Graciela Nuc stress 04/16/2023: LV SEVERELY dilated, LVDV 594 ml, LVSV 571 ml, calculated LVEF 4%. Large fixed defects: mid to distal anterior wall, apex, and mid to distal inf wall, minimal reversible, thinning inferobasal wall
Echo 01/05/2023: LV severely dilated, LVEF 20-25%, RV normal size/function, minimal AoV sclerosis, mild AR/MR, mild LAE, est PASP normal, IVC normal
Our last ICD check 01/21/2022: at that time a dual ICD, no recent AFib, no recent VT, AP 26%, SYSTEM PLANNING ENGINEER 2%.. PAF, 2 episodes, longest 6 hrs, seen on check from 02/2019
Pulmonary Office Note: Follows with Bernard Kemp MD. Known SEVERE COPD
Spirometry 10/14/2023: FEV1/FVC 35%, FEV1 0.58 L-70%, FVC 1.64 L (36%.� Very severe airflow obstruction with a restriction.
DLCO 09/16/2020: 7.64; 27%
Physical Exam
Vital Signs/Labs
Vital Signs
Temp Pulse Resp BP Pulse Ox
97.8 F 71 18 100/72 100
03/13/24 07:30 03/13/24 08:00 03/13/24 07:31 03/13/24 07:53 03/13/24 07:31
03/12/24 03/13/24 03/14/24
06:59 06:59 06:59
Actual Weight 198 lb 3.129 oz 198 lb 6.656 oz
03/13/24 02:21
03/13/24 02:21
PT 20.1 Sec (11.4-14.6) H 03/08/24 01:57
INR 1.74 03/08/24 01:57
APTT 32.7 Sec (23.4-35.0) 03/08/24 01:57
Magnesium 2.7 mg/dl (1.6-2.3) H 03/11/24 06:06
03/07/24
20:19
[id number]-Cqmhdzzkylx Pept [id number]
Physical Exam
Constitutional: Comfortable and Other (chronically ill appearing)
EENT: Anicteric
Cardiovascular: Rhythm & rate is regular
Respiratory: Other (poor air movement b/l )
GI: Soft
Neuro/Psych: AO x 3
Data Reviewed
-
Date of Service: March 13, 2024
EKG: Tracing Personally Visualized and interpreted (paced)
Echo: Report Reviewed by me
Labs: Labs Reviewed by me
--- NOTE | 2024-03-13 11:05 | PTCARENOTE ---
Received patient this morning resting in bed. Complaining of sternal pain and pain LLE and requesting prn roxycodone. States he is trying to stay ahead of the pain, and upset that he didn't get it as scheduled at change of shift. Reinforced that
pain med is ordered prn and is not a standing order. States left leg pain is in his ankle, knee and hip. Removed rick wrap from LLE, ankle is slightly warm and red but entire leg is tender to touch. Refusing to participate with PT/OT because of pain
however this was 90' after he was medicated. Continues to wear Bipap with pulse ox 99%. Call holden within reach. Dr. Mercer rounding on the patient and was updated.
[2024-03-13 11:47] LABS: Glucose - Point of Care 221 mg/dl (70-99)
--- NOTE | 2024-03-13 14:02 | CM ---
dc plans remain home when medically stable.
--- NOTE | 2024-03-13 16:26 | PTCARENOTE ---
Offering to get the patient oob to the chair several times today but he has declined. Refused to work with PT/OT earlier in the shift, citing his poor pain management as the reason he cannot participate. Have given prn pain medication q4H throughout
the day, lowest pain rating has been is 6/10. Visiting now with his sister and nephew.
--- NOTE | 2024-03-13 16:34 | RESPNOTE ---
patient upset that he no longer gets nebulizers and prefers inhalers. Confirmed with Pharmacy- pt takes following nebs: BID pulmicort 0.5mg, Yulepri neb Daily (anti-cholinergic), and PRN xopenex neb. TT to Mercer for changes. new orders sent to
pharmacy.
[2024-03-13 17:54] LABS: Glucose - Point of Care 190 mg/dl (70-99)
[2024-03-13] MEDS: NOVOLOG FLEXPEN-MODERATE RESISTANCE 1 UNITS SC (17:54)
--- NOTE | 2024-03-13 18:22 | PTCARENOTE ---
Patient's sister visiting from [place] with her son and requesting to speak to a physician. Stated she would like to speak with her brother's children and update them on his condition. Notified Dr. Mercer who came and spoke in the lounge to the
patient's sister.
[2024-03-13] MEDS: ATROVENT NEBULES 0.5 MG INH (19:51)
[2024-03-13] MEDS: PULMICORT 0.5 MG INH (19:51)
--- NOTE | 2024-03-13 20:42 | PTCARENOTE ---
Pt remains on BIPAP- and in bed. educated on turning to reduce the risk of bed sores- states ' i move believe me.' Asking for PRN medications every 4 hours and states he is trying to catch up on his pain. GANG SUPERVISOR P[employer] LINES on the monitor.
[2024-03-13 22:28] LABS: Glucose - Point of Care 161 mg/dl (70-99)
[2024-03-13] MEDS: PROTONIX 40 MG PO (23:33)
[2024-03-13] MEDS: LIPITOR 80 MG PO (23:33)
[2024-03-13] MEDS: LIDOCAINE 4% PATCH 1 PATCH TOPICAL (23:33)
[2024-03-13] MEDS: FLOMAX 0.4 MG PO (23:33)
[2024-03-13] MEDS: LANTUS 0.23 UNITS SC (23:33)
[2024-03-13] MEDS: MELATONIN 5 MG PO (23:33)
[2024-03-14] VITALS (13 sets, daily range): BP systolic 91–105; BP diastolic 67–75; PULSE 2–76; O2SAT 98–99; BMI 29.0
[2024-03-14] MEDS: TYLENOL 650 MG PO (01:43)
[2024-03-14] MEDS: ProAmatine 5 MG PO ×3 (03:46→19:10)
[2024-03-14] MEDS: ROXICODONE 2.5 MG PO ×5 (03:46→20:14)
[2024-03-14 04:17] LABS: Hemoglobin 10.1 g/dL (13.0-18.0); Mean Corp Hgb Conc. 32.6 g/dL (33.0-37.0); Mean Corpuscular Hgb 28.6 pg (27.0-31.0); Mean Corpuscular Volume 87.8 fL (80.0-94.0); Mean Platelet Volume 11.5 fL (7.4-10.4); Platelet Count 166 10^3/uL (130-400); Red Blood Cell Count 3.53 10^6/uL (4.70-6.10); Red Cell Dist. Width 15.2 % (11.5-14.5); White Blood Cell Count 8.1 10^3/uL (4.8-10.8)
[2024-03-14 04:38] LABS: Calcium 9.4 mg/dl (8.4-10.2); Carbon Dioxide 30 mmol/L (22-30); Estimated Creatinine Clearance 36 ml/min; eGFR 34.93
[2024-03-14 04:47] LABS: Blood Urea Nitrogen 88 mg/dl (9-20); Chloride 93 mmol/L (98-107); Glucose 127 mg/dl (70-99); Potassium 3.5 mmol/L (3.5-5.1); Sodium 135 mmol/L (135-145)
[2024-03-14] MEDS: PULMICORT 0.5 MG INH ×2 (07:25→20:25)
[2024-03-14] MEDS: ATROVENT NEBULES 0.5 MG INH ×2 (07:25→20:25)
[2024-03-14 07:28] LABS: Glucose - Point of Care 132 mg/dl (70-99)
--- NOTE | 2024-03-14 07:59 | W.PN.CD ---
Today's Communication / Plan
-
- Continue Lasix 40 mg IV daily; nephrology following.
- Will discontinue isosorbide mononitrate, given blood pressure limitations (patient is also on midodrine); would likely allow more effective/aggressive diuresis.
- Continue Farxiga, metoprolol succinate, IV Lasix.
Impression / Plan
-
Background: 63 y/o male with SEVERE COPD, on home O2, chronic HFrEF, severe ischemic cardiomyopathy, prior [place], CAD (s/p LAD and LCx PCIs and RCA MANAGER SERVICES,), hx of CVA, paroxysmal atrial fibrillation, and prior cardiac arrest (08/2022), DM.
Outpatient emergency medicine is Dr. Galloway and his EP doctor is Dr. Flores at [facility]. Has seen Dr. Rodriguez and may transition back to our practice.
Pulmonary: Kemp
Ischemic Cardiomyopathy with chronic HFrEF now acute severe HF; poor insight into severity of condition
- RHC below, but with severely elevated filling pressures consistent with severe HFrEF exacerbation
- Continue Lasix 40 mg IV daily; nephrology following.
- Patient with end-stage cardiomyopathy.
- overall prognosis is extremely guarded discussed high likely of readmission given severity of lung disease and ICMO with severe HF
- Hospice was recommended for patient.
- Will discontinue isosorbide mononitrate, given blood pressure limitations (patient is also on midodrine); would likely allow more effective/aggressive diuresis.
- Continue Farxiga, metoprolol succinate, IV Lasix.
- Further GDMT limited by hypotension and CALVIN.
Acute on chronic kidney injury
- Cr 1.2 to 1.3 in May 2023
- Cr 2.3 in Jul 2021, Today 2.6 slowly downtrending
- cont diuresis nephrology following
Admitted with 20 hrs of CP
- Troponin pattern so far argues against ACS/[place]
- Last cath 07/12/2023 led to med rx with chronic 100% pRCA and patent stents and no other obstructive CAD
Cardiac arrest on IMU had arrest with 3 min CPR and per Dr Powers first AF then clearly VT was cause of arrest
- EKG abnormal but chronically abnormal, no ST Elevation, ST depression old
- troponins are not significantly elevated
SEVERE COPD, follows with Dr. Kemp, on home O2
Hx of VT
Upgraded to BiV ICD at [facility]
Known Chronic CAD, last cath led to med rx 07/12/2023, see below
AFib: NOT PERMANENT: IN SINUS/atrial paced on our EKG here at on 06/04/2023
- Paroxysmal
- On Eliquis, [id number] at least 5 (HF, HTN, DM, stroke, vacular disease)
- On AMIO, presumably for VT and AFib
Prior CVA
Ambulatory dysfunction/Chronic pain, knees, hips, walks with a walker
Hx HTN
Subjective:
No major events overnight. Patient complains of pain all over.
Data:
RHC: HEMODYNAMIC FINDINGS (mmHg):RA(a,v,m): 29, 29, 27; RV(s/d,EDP): 64/21, 28; PA(s/d/m): 66/46, 53; PCWP(a,v,m): 47, 48, 44; Cardiac Output/Index (l/min / l/min/m2):Estimated Maria E Method: 2.8 /1.4
PA: 35% on BiPAP with 2 L of oxygen by nasal cannula
LV: 94% on BiPAP with 2 L oxygen by nasal cannula
Cath 07/12/2023 ([facility]): R dom, 100% pRCA, filled by L>R collaterals, patent long stent pLCx, patent long stent mLAD. LVEDP 8, no
LE arterial WAQAR 04/28/2023: Normal WAQAR bilateral
Graciela Nuc stress 04/16/2023: LV SEVERELY dilated, LVDV 594 ml, LVSV 571 ml, calculated LVEF 4%. Large fixed defects: mid to distal anterior wall, apex, and mid to distal inf wall, minimal reversible, thinning inferobasal wall
Echo 01/05/2023: LV severely dilated, LVEF 20-25%, RV normal size/function, minimal AoV sclerosis, mild AR/MR, mild LAE, est PASP normal, IVC normal
Our last ICD check 01/21/2022: at that time a dual ICD, no recent AFib, no recent VT, AP 26%, EVP MARKETING 2%.. PAF, 2 episodes, longest 6 hrs, seen on check from 02/2019
Pulmonary Office Note: Follows with Bernard Kemp MD. Known SEVERE COPD
Spirometry 10/14/2023: FEV1/FVC 35%, FEV1 0.58 L-70%, FVC 1.64 L (36%.� Very severe airflow obstruction with a restriction.
DLCO 09/16/2020: 7.64; 27%
Physical Exam
Vital Signs/Labs
Vital Signs
Temp Pulse Resp BP Pulse Ox
97.1 F 65 20 96/70 99
03/14/24 07:28 03/14/24 07:29 03/14/24 07:29 03/14/24 07:25 03/14/24 07:29
03/13/24 03/14/24 03/15/24
06:59 06:59 06:59
Actual Weight 90 kg
03/14/24 03:55
03/14/24 03:55
PT 20.1 Sec (11.4-14.6) H 03/08/24 01:57
INR 1.74 03/08/24 01:57
APTT 32.7 Sec (23.4-35.0) 03/08/24 01:57
Magnesium 2.7 mg/dl (1.6-2.3) H 03/11/24 06:06
03/07/24
20:19
Amj-C-Ysipgaymlkg Pept [id number]
Physical Exam
Constitutional: No acute distress and Comfortable
EENT: Anicteric
Cardiovascular: Rhythm & rate is regular, Systolic murmur absent, Pedal edema present (trace) and S1S2 is normal
Respiratory: Respiratory effort normal, Wheeze Absent and Other (Decreased bilateral breath sounds)
GI: Soft
Neuro/Psych: AO x 3
Other: Skin (Warm, dry)
Data Reviewed
-
Date of Service: March 14, 2024
EKG: Tracing Personally Visualized and interpreted (Telemetry: Paced)
Medical Tests (PFT, Pathology etc): Discussed with Nurse
Labs: Labs Reviewed by me
[2024-03-14] MEDS: NOVOLOG FLEXPEN-MODERATE RESISTANCE SC (08:01)
[2024-03-14] MEDS: NOVOLOG FLEXPEN 4 UNITS SC ×2 (08:01→13:56)
[2024-03-14] MEDS: IMDUR (EXTENDED RELEASE) PO (08:17)
[2024-03-14] MEDS: ELIQUIS 5 MG PO ×2 (09:13→20:15)
[2024-03-14] MEDS: DULCOLAX 5 MG PO (09:13)
[2024-03-14] MEDS: KCL 40 MEQ PO ×2 (09:13→22:09)
[2024-03-14] MEDS: PACERONE 200 MG PO (09:14)
[2024-03-14] MEDS: MIRALAX 17 GRAMS PO (09:14)
[2024-03-14] MEDS: TOPROL XL 25 MG PO (09:14)
[2024-03-14] MEDS: LOW STRENGTH ASPIRIN 81 MG PO (09:14)
[2024-03-14] MEDS: LASIX 40 MG IV (09:14)
--- NOTE | 2024-03-14 09:14 | W.PN.HOSP.TC ---
Today's Communication/Plan
-
IV Lasix. Steroids and Colchicine today.
Assessment / Plan
Assessment / Plan
Gen-AAOx3, NAD, BiPAP mask
HEENT-NC, AT, anicteric, clear oral mm
Neck-supple
CV-reg, no M, +S1/S2, tender anterior chest to palpation
Lungs-clear B/L
Abd-soft, NT, ND
Ext-left pedal edema
Musculoskeletal-no cyanosis, clubbing. Severe allodynia on left ankle/foot.
Skin-warm and dry
Neuro-grossly non-focal
Psych-calm, cooperative
A/P:
In-hospital cardiac arrest -March 07 evening. Required 3 minutes of CPR then had ROSC. Defibrillator did not fire as his threshold is 171 bpm. Cardiology believes that either fast AF/AT or VT precipitated his arrest. ICD was reprogrammed to treat
V. tach at 160 bpm.
Acute on chronic hypoxic/hypercapnic respiratory failure -likely multifactorial etiology including COPD, heart failure, other. Currently on 4 L nasal cannula oxygen and BIPAP.
On IV diuresis per cardiology and nephro.
Patient uses a home ventilator at nighttime, 4 to 6 L of nasal cannula oxygen during the day.
Acute on chronic heart failure with reduced EF exacerbation -confirmed diagnosis with elevated PCWP of 47 on RHC. Echocardiogram shows LVEF of 10 to 15%, severe diffuse global hypokinesis, RV not well-visualized, mild TR. He is on furosemide 80 mg
twice daily at home. Currently on IV Lasix 40 mg daily. I's and O's remain negative. Weight relatively almost unchanged (1 kg less today). Cardio discontinue nitrates due to blood pressure limitations.
Likely gout attack left foot-start steroids of prednisone 30 mg twice a day, trying to avoid NSAIDs due to renal failure, obtain uric acid, obtain x-ray of the left foot. Not sure if he would be able to take colchicine due to amiodarone but will
try to start.
Chronic metabolic alkalosis -acetazolamide started by nephrology. Bicarb 34 today.
Hypokalemia -replete and trend when necessary
Hyponatremia -135 today
Troponin elevation -likely acute nonischemic myocardial injury. Troponin trending down.
BiV ICD
CALVIN on CKD 3A -creatinine 2.1 today. Yan catheter placed. Nephrology following. Possible cardiorenal syndrome versus hypotension induced ATN versus other. Nephrology has reduced dose of furosemide to once daily.
COPD without exacerbation
History of stroke
Paroxysmal atrial fibrillation -on chronic amiodarone, Eliquis.
DM2 with hyperglycemia -hemoglobin A1c 8.0%, much improved compared to last year. At home, he is on glipizide 5 mg daily, Farxiga 10 mg daily, Lantus 23 units at bedtime. Patient received 23 units of Lantus last night, glucose 136 this morning.
Continue current dose of Lantus, aspart 4 units with meals, moderate resistance aspart scale.
LOREN
Full code -discussed with patient, he wants to remain a full code. Unfortunately his overall prognosis remains poor given severe cardiomyopathy and presentation with severe respiratory failure. Now developing multiorgan failure. Patient seems to
lack insight into his overall prognosis. During Dr Choi goals of care discussion, he was too focused on talking about tuna fish and other dietary modifications. Dr. Choi tried to explain to him that he really should focus on quality of life
given his poor prognosis and limited life span. Hospice should be considered. He states that he wants to live to see his first grandchild, expected around September or October.
ON 03/13--> I had lengthy discussion with sister (patient gave permission to discuss his current condition and prognosis)--> she seems to understand clearly and she will communicate this to patient and rest of his family.
Time spent 55 minutes
Anticipated Discharge: > 48 hours
Subjective/Interval History
-
Date of Service: March 14, 2024
Complains of significant pain in the left ankle/foot-no trauma or erythema. Patient wearing BiPAP today. He is still short of breath overall but nothing worse.
Objective Data
-
Labs:
Laboratory Results
03/14/24
03:55
WBC 8.1
Hgb 10.1 L
Hct 31.0 L
Plt Count 166
Sodium 135
Potassium 3.5
Chloride 93 L
Carbon Dioxide 30
BUN 88 H
Creatinine 2.1 H
Glucose 127 H
Calcium 9.4
Vital Signs:
Vital Signs
Temp Pulse Resp BP Pulse Ox
97.1 F 65 20 96/70 99
03/14/24 07:28 03/14/24 07:29 03/14/24 07:29 03/14/24 07:25 03/14/24 07:29
I&O
03/13/24 03/14/24 03/15/24
06:59 06:59 06:59
Intake Total 480 / 480 1100 / 1100
Output Total 3050 / 3050 2350 / 2350
Balance -2570 / -2570 -1250 / -1250
[2024-03-14] MEDS: FLUSH (NSS) 2 FLUSH IV (09:16)
--- NOTE | 2024-03-14 09:39 | W.PN.NEPH.PH ---
Today's Communication / Plan
-
follow BMP
Assessment/Plan
-
Assessment:
CALVIN on CKD (bl Cr 1.3)
s/p cardiac arrest on 03/07 evening
acute on chronic hypoxic/hypercapnic resp failure
COPD
hx of stroke
pAfib
T2DM
Plan:
continue lasix
follow BMP
off farxiga, if Cr settles more tomorrow can restart
continue midodrine 5 TID, goal is for SBP ~100
K BID
Family is in process of learning how severe his CM is and how poor his prognosis is
previously i had a long discussion with the patient regarding prognosis. He wishes to remain full code and wants everything done. We discussed poor prognosis and likely from cardiac arrest. We discussed cardiorenal syndrome and probable
dialysis. He would do dialysis. We discussed poor QoL on dialysis as well. I todl him I would not recommend diaylsis. This may not even be clinical feasible due to his hemodynamic instability. he said he wanted to meet his future grandchild, to be
born early 2024.
-
-
Date of Service: March 14, 2024
CC / HPI / ROS
-
Chief Complaint:
alkalosis/CALVIN
History of Present Illness:
CALVIN/Cr down to 2.1
BUN high stable at 88
metabolic alkalosis stable at 30
weights are unchanged overall
low diuresis with IV lasix for decompensated HFrEF
Review of Systems:
feels extremely SOB still
no CP
Labs
-
Labs:
WBC 8.1 10^3/uL (4.8-10.8) 03/14/24 03:55
RBC 3.53 10^6/uL (4.70-6.10) L 03/14/24 03:55
Hgb 10.1 g/dL (13.0-18.0) L 03/14/24 03:55
Hct 31.0 % (39.0-52.0) L 03/14/24 03:55
Plt Count 166 10^3/uL (130-400) 03/14/24 03:55
Sodium 135 mmol/L (135-145) 03/14/24 03:55
Potassium 3.5 mmol/L (3.5-5.1) 03/14/24 03:55
Chloride 93 mmol/L (98-107) L 03/14/24 03:55
Carbon Dioxide 30 mmol/L (22-30) 03/14/24 03:55
BUN 88 mg/dl (9-20) H 03/14/24 03:55
Creatinine 2.1 mg/dL (0.7-1.3) H 03/14/24 03:55
eGFR 34.93 03/14/24 03:55
Glucose 127 mg/dl (70-99) H 03/14/24 03:55
Calcium 9.4 mg/dl (8.4-10.2) 03/14/24 03:55
Mla-X-Fficxgyvcce Pept 16572 pg/ml 03/07/24 20:19
Albumin 3.9 g/dl (3.5-5.0) 03/11/24 06:06
Physical Exam
-
Vital Signs:
Vital Signs
Temp Pulse Resp BP Pulse Ox
97.1 F 65 20 96/70 99
03/14/24 07:28 03/14/24 07:29 03/14/24 07:29 03/14/24 07:25 03/14/24 07:29
Cardiovascular:: Regular rate and rhythm
Respiratory:: Bilateral: Coarse and Bilateral: Rales
Lung Excursion:: Normal
Abdomen:: Nontender
Bowel Sounds:: Normal
Extremity Edema:: None: Bilateral:
--- NOTE | 2024-03-14 12:21 | PTCARENOTE ---
Received patient this morning lying in bed. Remains on Bipap, pulse ox 100%. Continues to complain of pain at sternum and LLE. Medicating with prn oxycodone q4H. Was willing to work with PT/OT but would not get oob due to pain left leg. Patient
refuses to reposition and lie on his side. Multiple complaints about his diet, easily agitated when doing physical assessment and makes frequent sarcastic remarks when asking or answering any questions about his care. Dr. Mercer in to see the patient
and was notified of his limited mobility with his left leg pain complaints despite pain medications.
[2024-03-14] MEDS: COLCHICINE 0.6 MG PO (13:00)
[2024-03-14] MEDS: DELTASONE 30 MG PO ×2 (13:00→20:14)
[2024-03-14 13:05] LABS: Glucose - Point of Care 219 mg/dl (70-99)
[2024-03-14] MEDS: NOVOLOG FLEXPEN-MODERATE RESISTANCE 3 UNITS SC ×2 (13:55→19:10)
[2024-03-14 17:30] LABS: Glucose - Point of Care 205 mg/dl (70-99)
--- NOTE | 2024-03-14 18:05 | PTCARENOTE ---
Sister in visiting with the patient. All of his children were updated by his sister about his condition and are here now visiting with him.
[2024-03-14] MEDS: NOVOLOG FLEXPEN SC (19:11)
[2024-03-14 19:27] LABS: Uric Acid 16.9 mg/dl (3.5-8.5)
--- NOTE | 2024-03-14 21:34 | PTCARENOTE ---
Pts family still visiting- Bipap remains on. Q4H PRN medication given per nov.
[2024-03-14 22:03] LABS: Glucose - Point of Care 331 mg/dl (70-99)
[2024-03-14] MEDS: PROTONIX 40 MG PO (22:09)
[2024-03-14] MEDS: LIPITOR 80 MG PO (22:09)
[2024-03-14] MEDS: MELATONIN 5 MG PO (22:10)
[2024-03-14] MEDS: FLOMAX 0.4 MG PO (22:10)
[2024-03-14] MEDS: LIDOCAINE 4% PATCH TOPICAL (22:10)
[2024-03-14] MEDS: LANTUS 0.23 UNITS SC (22:16)
[2024-03-15] VITALS (12 sets, daily range): BP systolic 99–125; BP diastolic 66–82; PULSE 2–73; BMI 29.0
[2024-03-15] MEDS: ROXICODONE 2.5 MG PO ×4 (00:27→22:11)
[2024-03-15 04:03] LABS: Hematocrit 33.4 % (39.0-52.0); Hemoglobin 10.4 g/dL (13.0-18.0); Mean Corp Hgb Conc. 31.1 g/dL (33.0-37.0); Mean Corpuscular Hgb 28.3 pg (27.0-31.0); Mean Corpuscular Volume 90.8 fL (80.0-94.0); Mean Platelet Volume 11.4 fL (7.4-10.4); Platelet Count 166 10^3/uL (130-400); Red Blood Cell Count 3.68 10^6/uL (4.70-6.10); Red Cell Dist. Width 14.8 % (11.5-14.5)
[2024-03-15 04:32] LABS: Blood Urea Nitrogen 87 mg/dl (9-20); Calcium 9.6 mg/dl (8.4-10.2); Carbon Dioxide 28 mmol/L (22-30); Chloride 95 mmol/L (98-107); Estimated Creatinine Clearance 36 ml/min; Glucose 311 mg/dl (70-99); Magnesium 2.6 mg/dl (1.6-2.3); Sodium 135 mmol/L (135-145); eGFR 34.93
[2024-03-15] MEDS: ProAmatine 5 MG PO ×3 (04:37→20:40)
[2024-03-15] MEDS: PULMICORT 0.5 MG INH ×2 (07:28→20:17)
[2024-03-15] MEDS: ATROVENT NEBULES 0.5 MG INH ×2 (07:28→20:17)
--- NOTE | 2024-03-15 08:10 | W.PN.CD ---
Today's Communication / Plan
-
- Continue Lasix 40 mg IV daily--transition to Lasix 40 mg PO daily, if okay with Nephrology.
- Patient with end-stage cardiomyopathy; poor prognosis.
- Hospice was recommended for patient.
-Cardiology will remain available on an as-needed basis; patient has an outside Aircraft Mechanic for follow-up.
Impression / Plan
-
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
Outpatient junior programmer analyst is Dr. Galloway and his EP doctor is Dr. Flores at [facility]. Has seen Dr. Rodriguez and may transition back to our practice.
Pulmonary: Kemp
Ischemic Cardiomyopathy with chronic HFrEF now acute severe HF; poor insight into severity of condition
- RHC below, but with severely elevated filling pressures consistent with severe HFrEF exacerbation
- Continue Lasix 40 mg IV daily--transition to Lasix 40 mg PO daily, if okay with Nephrology.
- Patient with end-stage cardiomyopathy; poor prognosis.
- Overall prognosis is extremely poor discussed high likely of readmission given severity of lung disease and ICMO with severe HF
- Hospice was recommended for patient.
- Continue Farxiga and metoprolol succinate.
- Further GDMT limited by hypotension and CALVIN.
Acute on chronic kidney injury
- Cr 1.2 to 1.3 in May 2023
- Cr 2.3 in Jul 2021, Today 2.6 slowly downtrending
- Lasix recommendations as above; Nephrology following.
Admitted with 20 hrs of CP
- Troponin pattern so far argues against ACS/OK
- Last cath 07/12/2023 led to med rx with chronic 100% pRCA and patent stents and no other obstructive CAD
Cardiac arrest on IMU had arrest with 3 min CPR and per Dr Powers first AF then clearly VT was cause of arrest
- EKG abnormal but chronically abnormal, no ST Elevation, ST depression old
- troponins are not significantly elevated
SEVERE COPD, follows with Dr. Kemp, on home O2
Hx of VT
Upgraded to BiV ICD at [facility]
Known Chronic CAD, last cath led to med rx 07/12/2023, see below
AFib: NOT PERMANENT: IN SINUS/atrial paced on our EKG here at on 06/04/2023
- Paroxysmal
- On Eliquis, [id number] at least 5 (HF, HTN, DM, stroke, vacular disease)
- On AMIO, presumably for VT and AFib
Prior CVA
Ambulatory dysfunction/Chronic pain, knees, hips, walks with a walker
Hx HTN
Subjective:
No major events overnight.
Data:
RHC: HEMODYNAMIC FINDINGS (mmHg):RA(a,v,m): 29, 29, 27; RV(s/d,EDP): 64/21, 28; PA(s/d/m): 66/46, 53; PCWP(a,v,m): 47, 48, 44; Cardiac Output/Index (l/min / l/min/m2):Estimated Maria E Method: 2.8 /1.4
PA: 35% on BiPAP with 2 L of oxygen by nasal cannula
LV: 94% on BiPAP with 2 L oxygen by nasal cannula
Cath 07/12/2023 ([facility]): R dom, 100% pRCA, filled by L>R collaterals, patent long stent pLCx, patent long stent mLAD. LVEDP 8, no
LE arterial WAQAR 04/28/2023: Normal WAQAR bilateral
Graciela Nuc stress 04/16/2023: LV SEVERELY dilated, LVDV 594 ml, LVSV 571 ml, calculated LVEF 4%. Large fixed defects: mid to distal anterior wall, apex, and mid to distal inf wall, minimal reversible, thinning inferobasal wall
Echo 01/05/2023: LV severely dilated, LVEF 20-25%, RV normal size/function, minimal AoV sclerosis, mild AR/MR, mild LAE, est PASP normal, IVC normal
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 PAF, 2 episodes, longest 6 hrs, seen on check from 02/2019
Pulmonary Office Note: Follows with Bernard Kemp MD. Known SEVERE COPD
Spirometry 10/14/2023: FEV1/FVC 35%, FEV1 0.58 L-70%, FVC 1.64 L (36%.� Very severe airflow obstruction with a restriction.
DLCO 09/16/2020: 7.64; 27%
Physical Exam
Vital Signs/Labs
Vital Signs
Temp Pulse Resp BP Pulse Ox
98.1 F 64 20 105/66 97
03/15/24 07:15 03/15/24 07:29 03/15/24 07:29 03/15/24 03:29 03/15/24 07:29
03/14/24 03/15/24 03/16/24
06:59 06:59 06:59
Actual Weight 89 kg
03/15/24 03:43
03/15/24 03:43
PT 20.1 Sec (11.4-14.6) H 03/08/24 01:57
INR 1.74 03/08/24 01:57
APTT 32.7 Sec (23.4-35.0) 03/08/24 01:57
Magnesium 2.6 mg/dl (1.6-2.3) H 03/15/24 03:43
03/07/24
20:19
Flz-S-Yeywrjfxfet Pept [id number]
Physical Exam
Constitutional: No acute distress and Comfortable
EENT: Anicteric
Cardiovascular: Rhythm & rate is regular, Pedal edema is absent, Systolic murmur absent and S1S2 is normal
Respiratory: Respiratory effort normal, Wheeze Absent and Other (Decreased bibasilar breath sounds)
GI: Soft
Neuro/Psych: AO x 3
Other: Skin (Warm, dry)
Data Reviewed
-
Date of Service: March 15, 2024
EKG: Tracing Personally Visualized and interpreted (Telemetry: Sinus rhythm with sequential ventricular pacing)
Labs: Labs Reviewed by me
--- NOTE | 2024-03-15 08:28 | W.PN.HOSP.TC ---
Today's Communication/Plan
-
IV Lasix. Oral steroids. X-ray foot
Assessment / Plan
Assessment / Plan
Gen-AAOx3, NAD, BiPAP mask
HEENT-NC, AT, anicteric, clear oral mm
Neck-supple
CV-reg, no M, +S1/S2, tender anterior chest to palpation
Lungs-clear B/L
Abd-soft, NT, ND
Ext-left pedal edema
Musculoskeletal-no cyanosis, clubbing. Severe allodynia on left ankle/foot.
Skin-warm and dry
Neuro-grossly non-focal
Psych-calm, cooperative
A/P:
In-hospital cardiac arrest -March 07 evening. Required 3 minutes of CPR then had ROSC. Defibrillator did not fire as his threshold is 171 bpm. Cardiology believes that either fast AF/AT or VT precipitated his arrest. ICD was reprogrammed to treat
V. tach at 160 bpm.
Acute on chronic hypoxic/hypercapnic respiratory failure -likely multifactorial etiology including COPD, heart failure, other. Currently on 4 L nasal cannula oxygen and BIPAP.
On IV diuresis per cardiology and nephro.
Patient uses a home ventilator at nighttime, 4 to 6 L of nasal cannula oxygen during the day.
Acute on chronic heart failure with reduced EF exacerbation -confirmed diagnosis with elevated PCWP of 47 on RHC. Echocardiogram shows LVEF of 10 to 15%, severe diffuse global hypokinesis, RV not well-visualized, mild TR. He is on furosemide 80 mg
twice daily at home. Currently on IV Lasix 40 mg daily. I's and O's remain negative. Weight relatively almost unchanged (1 kg less today). Cardio discontinue nitrates due to blood pressure limitations.
Gout attack left foot-continue colchicine and prednisone 30 mg twice a day, trying to avoid NSAIDs due to renal failure. Uric acid 16.9, obtain x-ray of the left foot and no fractures.
Chronic metabolic alkalosis -acetazolamide started by nephrology. Bicarb 28 today.
Hypokalemia -replete and trend when necessary
Hyponatremia -135 today
Troponin elevation -likely acute nonischemic myocardial injury. Troponin trending down.
BiV ICD
CALVIN on CKD 3A -creatinine 2.1 today. Yan catheter placed. Nephrology following. Possible cardiorenal syndrome versus hypotension induced ATN versus other. Nephrology has reduced dose of furosemide to once daily.
COPD without exacerbation
History of stroke
Paroxysmal atrial fibrillation -on chronic amiodarone, Eliquis.
DM2 with hyperglycemia -hemoglobin A1c 8.0%, much improved compared to last year. At home, he is on glipizide 5 mg daily, Farxiga 10 mg daily, Lantus 23 units at bedtime. Patient received 23 units of Lantus last night, glucose 136 this morning.
Continue current dose of Lantus, aspart 4 units with meals, moderate resistance aspart scale.
LOREN
Full code -discussed with patient, he wants to remain a full code. Unfortunately his overall prognosis remains poor given severe cardiomyopathy and presentation with severe respiratory failure. Now developing multiorgan failure. Patient seems to
lack insight into his overall prognosis. During Dr Choi goals of care discussion, he was too focused on talking about tuna fish and other dietary modifications. Dr. Choi tried to explain to him that he really should focus on quality of life
given his poor prognosis and limited life span. Hospice should be considered. He states that he wants to live to see his first grandchild, expected around September or October.
ON 03/13--> I had lengthy discussion with sister (patient gave permission to discuss his current condition and prognosis)--> she seems to understand clearly and she will communicate this to patient and rest of his family.
Time spent 55 minutes
Anticipated Discharge: > 48 hours
Subjective/Interval History
-
Date of Service: March 15, 2024
Patient still has significant left foot pain but slightly improved. No chest pain. Less shortness of breath. On BiPAP
Objective Data
-
Labs:
Laboratory Results
03/15/24
03:43
WBC 8.0
Hgb 10.4 L
Hct 33.4 L
Plt Count 166
Sodium 135
Potassium 4.0
Chloride 95 L
Carbon Dioxide 28
BUN 87 H
Creatinine 2.1 H
Glucose 311 H
Calcium 9.6
Vital Signs:
Vital Signs
Temp Pulse Resp BP Pulse Ox
98.1 F 64 20 105/66 97
03/15/24 07:15 03/15/24 07:29 03/15/24 07:29 03/15/24 03:29 03/15/24 07:29
I&O
03/14/24 03/15/24 03/16/24
06:59 06:59 06:59
Intake Total 1100 / 1100 840 / 840
Output Total 2350 / 2350 1400 / 1400
Balance -1250 / -1250 -560 / -560
[2024-03-15 09:05] LABS: Glucose - Point of Care 278 mg/dl (70-99)
[2024-03-15] MEDS: NOVOLOG FLEXPEN-MODERATE RESISTANCE 5 UNITS SC ×3 (09:10→17:54)
[2024-03-15] MEDS: NOVOLOG FLEXPEN 4 UNITS SC ×3 (09:10→17:54)
--- NOTE | 2024-03-15 09:19 | PTCARENOTE ---
sent via stretcher for xray of foot.
[2024-03-15] MEDS: DELTASONE 30 MG PO ×2 (09:24→20:42)
[2024-03-15] MEDS: MIRALAX 17 GRAMS PO (09:24)
[2024-03-15] MEDS: LOW STRENGTH ASPIRIN 81 MG PO (09:24)
[2024-03-15] MEDS: TOPROL XL 25 MG PO (09:26)
[2024-03-15] MEDS: PACERONE 200 MG PO (09:26)
[2024-03-15] MEDS: KCL 40 MEQ PO ×2 (09:26→20:41)
[2024-03-15] MEDS: DULCOLAX 5 MG PO (09:26)
[2024-03-15] MEDS: ELIQUIS 5 MG PO ×2 (09:26→20:41)
[2024-03-15] MEDS: LASIX 40 MG IV (09:27)
[2024-03-15] MEDS: COLCHICINE 0.6 MG PO (09:36)
--- NOTE | 2024-03-15 09:50 | W.PN.NEPH.PH ---
Today's Communication / Plan
-
po lasix
Assessment/Plan
-
Assessment:
CALVIN on CKD (bl Cr 1.3)
s/p cardiac arrest on 03/07 evening
acute on chronic hypoxic/hypercapnic resp failure
COPD
hx of stroke
pAfib
T2DM
Plan:
continue lasix convert to po , OP dosing
follow BMP
off farxiga still. can restart as outpatient
continue midodrine 5 TID, goal is for SBP ~100
K BID
limit colchicine exposure
will need to start allopurinol
-
-
Date of Service: March 15, 2024
CC / HPI / ROS
-
Chief Complaint:
alkalosis/CALVIN
History of Present Illness:
CALVIN/Cr down to 2.1 stable
BUN high stable at 87
metabolic alkalosis stable at 28
weights are unchanged overall
low diuresis with IV lasix for decompensated HFrEF
Review of Systems:
feels extremely SOB still
no CP
worsening pain in left LE
Labs
-
Labs:
WBC 8.0 10^3/uL (4.8-10.8) 03/15/24 03:43
RBC 3.68 10^6/uL (4.70-6.10) L 03/15/24 03:43
Hgb 10.4 g/dL (13.0-18.0) L 03/15/24 03:43
Hct 33.4 % (39.0-52.0) L 03/15/24 03:43
Plt Count 166 10^3/uL (130-400) 03/15/24 03:43
Sodium 135 mmol/L (135-145) 03/15/24 03:43
Potassium 4.0 mmol/L (3.5-5.1) 03/15/24 03:43
Chloride 95 mmol/L (98-107) L 03/15/24 03:43
Carbon Dioxide 28 mmol/L (22-30) 03/15/24 03:43
BUN 87 mg/dl (9-20) H 03/15/24 03:43
Creatinine 2.1 mg/dL (0.7-1.3) H 03/15/24 03:43
eGFR 34.93 03/15/24 03:43
Glucose 311 mg/dl (70-99) H 03/15/24 03:43
Calcium 9.6 mg/dl (8.4-10.2) 03/15/24 03:43
Egb-B-Bsfiubqsmgt Pept 88723 pg/ml 03/07/24 20:19
Albumin 3.9 g/dl (3.5-5.0) 03/11/24 06:06
Physical Exam
-
Vital Signs:
Vital Signs
Temp Pulse Resp BP Pulse Ox
98.1 F 64 20 105/66 97
03/15/24 07:15 03/15/24 07:29 03/15/24 07:29 03/15/24 03:29 03/15/24 07:29
Cardiovascular:: Regular rate and rhythm
Respiratory:: Bilateral: Rales
Lung Excursion:: Normal
Abdomen:: Nontender and Soft
Bowel Sounds:: Normal
Extremity Edema:: None: Bilateral:
Other Findings::
pain in left lower lef in its entirety
[2024-03-15] MEDS: ZYLOPRIM 100 MG PO (11:34)
--- NOTE | 2024-03-15 12:12 | CM ---
Addendum entered by CARMITA Alonso 03/15/24 16:12:
Met w/ patient and mult. family members at bedside.
Reviewed recommendation for SNF. Pt. will not agree to SNF at this time. He reports that a SNF ' almost killed (him)'.
Pt. confirmed that he has 4 h of private duty care per day. I have referred patient to [facility], accepted.
At this time, patient declining SNF
Plan per patient's request is VN supplemented by private duty care.
Pt. would benefit from PT to maximize functional mobility prior to DC.
Original Note:
CM following for DC planning needs.
Met w/ patient at bedside. Pt. was sleepy, on BiPAP. Agreed to return.
Noted PT evaluation. Patient is Max[facility], recommendation is for SNF.
Will need to discuss w/ pt. Last discussion w/ patient on this, he did not feel he would need SNF and had a negative experience at a SNF in the past.
Will revisit later today.
[2024-03-15 12:56] LABS: Glucose - Point of Care 294 mg/dl (70-99)
[2024-03-15 17:37] LABS: Glucose - Point of Care 295 mg/dl (70-99)
--- NOTE | 2024-03-15 20:30 | PTCARENOTE ---
received pt on bipap with o2 sat=99%. lungs decreased at bases and course.pt irritable and angry at times. c/o discomfort all over.refusing to rate pain . states they already asked me that.c/o pain left foot with movement. lao intact draining
yellow urinesupport provided to pt frequently.
[2024-03-15 22:09] LABS: Glucose - Point of Care 274 mg/dl (70-99)
[2024-03-15] MEDS: MELATONIN 5 MG PO (22:11)
[2024-03-15] MEDS: FLOMAX 0.4 MG PO (22:11)
[2024-03-15] MEDS: PROTONIX 40 MG PO (22:11)
[2024-03-15] MEDS: LIPITOR 80 MG PO (22:11)
[2024-03-15] MEDS: LIDOCAINE 4% PATCH TOPICAL (22:16)
[2024-03-15] MEDS: LANTUS 0.23 UNITS SC (22:19)
--- NOTE | 2024-03-15 22:30 | PTCARENOTE ---
pt assisted oob to bedside commode. pt with moderate amount soft brown bm. maximum assist of 3 people due to pain left foot. pt medicated with Roxicodone as ordered for pain. support provided frequently.
[2024-03-16] VITALS (13 sets, daily range): BP systolic 95–119; BP diastolic 67–85; PULSE 2–71; BMI 29.1; BMI 28.4
[2024-03-16] MEDS: ProAmatine 5 MG PO ×3 (04:38→18:49)
[2024-03-16] MEDS: ROXICODONE 2.5 MG PO ×2 (04:50→10:03)
--- NOTE | 2024-03-16 05:00 | PTCARENOTE ---
pt sleeping. arouses easily from sleep.am labs drawn. pt asking for pain med. rates pain in left foot 03/22.roxicodone gived as ordered for pain. pt av paced on monitor with pvcs. pt 100% sat on bipap. pt resting comfortably.
[2024-03-16 05:03] LABS: Hematocrit 34.3 % (39.0-52.0); Hemoglobin 10.7 g/dL (13.0-18.0); Mean Corp Hgb Conc. 31.2 g/dL (33.0-37.0); Mean Corpuscular Hgb 28.2 pg (27.0-31.0); Mean Corpuscular Volume 90.5 fL (80.0-94.0); Mean Platelet Volume 11.6 fL (7.4-10.4); Platelet Count 186 10^3/uL (130-400); Red Blood Cell Count 3.79 10^6/uL (4.70-6.10); Red Cell Dist. Width 14.8 % (11.5-14.5); White Blood Cell Count 9.2 10^3/uL (4.8-10.8)
[2024-03-16 05:23] LABS: Blood Urea Nitrogen 89 mg/dl (9-20); Calcium 9.7 mg/dl (8.4-10.2); Carbon Dioxide 27 mmol/L (22-30); Chloride 99 mmol/L (98-107); Estimated Creatinine Clearance 38 ml/min; Glucose 219 mg/dl (70-99); Potassium 4.4 mmol/L (3.5-5.1); Sodium 137 mmol/L (135-145); eGFR 37.04
[2024-03-16 07:33] LABS: Glucose - Point of Care 259 mg/dl (70-99)
[2024-03-16] MEDS: ATROVENT NEBULES 0.5 MG INH ×2 (08:03→19:08)
[2024-03-16] MEDS: PULMICORT 0.5 MG INH ×2 (08:03→19:08)
--- NOTE | 2024-03-16 09:19 | W.PN.NEPH.PH ---
Today's Communication / Plan
-
Observe on IV lasix
Assessment/Plan
-
Assessment:
CALVIN on CKD (bl Cr 1.3)
s/p cardiac arrest on 03/07 evening
acute on chronic hypoxic/hypercapnic resp failure
COPD
hx of stroke
pAfib
T2DM
Plan:
continue lasix convert to po , OP dosing
follow BMP, creatinine stable at baseline of 2
off farxiga still. can restart as outpatient
continue midodrine 5 TID, goal is for SBP ~100
K BID
limit colchicine exposure
will need to start allopurinol
-
-
Date of Service: March 16, 2024
CC / HPI / ROS
-
Chief Complaint:
alkalosis/CALVIN
History of Present Illness:
CALVIN/Cr down to 2.0 stable
Hemodynamically labile with midodrine support
BUN high stable at 89
weights are unchanged overall
diuresis with IV lasix for decompensated HFrEF
Review of Systems:
feels extremely SOB still
no CP
weights stable
worsening pain in left LE
Labs
-
Labs:
WBC 9.2 10^3/uL (4.8-10.8) 03/16/24 04:37
RBC 3.79 10^6/uL (4.70-6.10) L 03/16/24 04:37
Hgb 10.7 g/dL (13.0-18.0) L 03/16/24 04:37
Hct 34.3 % (39.0-52.0) L 03/16/24 04:37
Plt Count 186 10^3/uL (130-400) 03/16/24 04:37
Sodium 137 mmol/L (135-145) 03/16/24 04:37
Potassium 4.4 mmol/L (3.5-5.1) 03/16/24 04:37
Chloride 99 mmol/L (98-107) 03/16/24 04:37
Carbon Dioxide 27 mmol/L (22-30) 03/16/24 04:37
BUN 89 mg/dl (9-20) H 03/16/24 04:37
Creatinine 2.0 mg/dL (0.7-1.3) H 03/16/24 04:37
eGFR 37.04 03/16/24 04:37
Glucose 219 mg/dl (70-99) H 03/16/24 04:37
Calcium 9.7 mg/dl (8.4-10.2) 03/16/24 04:37
Jfa-X-Hmnelfqcqxs Pept 17361 pg/ml 03/07/24 20:19
Albumin 3.9 g/dl (3.5-5.0) 03/11/24 06:06
Physical Exam
-
Vital Signs:
Vital Signs
Temp Pulse Resp BP Pulse Ox
96 F L 67 16 103/80 100
03/16/24 07:28 03/16/24 08:08 03/16/24 08:08 03/16/24 04:38 03/16/24 08:08
Cardiovascular:: Regular rate and rhythm
Respiratory:: Bilateral: Coarse
Lung Excursion:: Normal
Abdomen:: Nontender and Soft
Bowel Sounds:: Normal
Extremity Edema:: None: Bilateral:
Ayn Catheter: Yes
--- NOTE | 2024-03-16 09:38 | W.PN.HOSP.TC ---
Today's Communication/Plan
-
IV Lasix. Steroids. Monitor renal function
Assessment / Plan
Assessment / Plan
Gen-AAOx3, NAD, BiPAP mask
HEENT-NC, AT, anicteric, clear oral mm
Neck-supple
CV-reg, no M, +S1/S2, tender anterior chest to palpation
Lungs-clear B/L
Abd-soft, NT, ND
Ext-left pedal edema
Musculoskeletal-no cyanosis, clubbing. Severe allodynia on left ankle/foot.
Skin-warm and dry
Neuro-grossly non-focal
Psych-calm, cooperative
A/P:
In-hospital cardiac arrest -March 07 evening. Required 3 minutes of CPR then had ROSC. Defibrillator did not fire as his threshold is 171 bpm. Cardiology believes that either fast AF/AT or VT precipitated his arrest. ICD was reprogrammed to treat
V. tach at 160 bpm.
Acute on chronic hypoxic/hypercapnic respiratory failure -likely multifactorial etiology including COPD, heart failure, other. Currently on 4 L nasal cannula oxygen and BIPAP.
On IV diuresis per cardiology and nephro.
Patient uses a home ventilator at nighttime, 4 to 6 L of nasal cannula oxygen during the day.
Acute on chronic heart failure with reduced EF exacerbation -confirmed diagnosis with elevated PCWP of 47 on RHC. Echocardiogram shows LVEF of 10 to 15%, severe diffuse global hypokinesis, RV not well-visualized, mild TR. He is on furosemide 80 mg
twice daily at home. Currently on IV Lasix 40 mg daily. I's and O's remain negative. Weight relatively almost unchanged (1 kg less today). Cardio discontinue nitrates due to blood pressure limitations.
Gout attack left foot-continue prednisone 30 mg twice a day and will start taper tomorrow, trying to avoid NSAIDs due to renal failure. Nephrology discontinued colchicine today. Uric acid 16.9, obtain x-ray of the left foot and no fractures. Uric
acid lowering agents down the road.
Chronic metabolic alkalosis -acetazolamide started by nephrology. Bicarb 28 today.
Hypokalemia -replete and trend when necessary
Hyponatremia -135 today
Troponin elevation -likely acute nonischemic myocardial injury. Troponin trending down.
BiV ICD
CALVIN on CKD 3A -creatinine 2.1 today. Yan catheter placed. Nephrology following. Possible cardiorenal syndrome versus hypotension induced ATN versus other. Nephrology has reduced dose of furosemide to once daily.
COPD without exacerbation
History of stroke
Paroxysmal atrial fibrillation -on chronic amiodarone, Eliquis.
DM2 with hyperglycemia -hemoglobin A1c 8.0%, much improved compared to last year. At home, he is on glipizide 5 mg daily, Farxiga 10 mg daily, Lantus 23 units at bedtime. Patient received 23 units of Lantus last night, glucose 136 this morning.
Continue current dose of Lantus, aspart 4 units with meals, moderate resistance aspart scale.
LOREN
Full code -discussed with patient, he wants to remain a full code. Unfortunately his overall prognosis remains poor given severe cardiomyopathy and presentation with severe respiratory failure. Now developing multiorgan failure. Patient seems to
lack insight into his overall prognosis. During Dr Choi goals of care discussion, he was too focused on talking about tuna fish and other dietary modifications. Dr. Choi tried to explain to him that he really should focus on quality of life
given his poor prognosis and limited life span. Hospice should be considered. He states that he wants to live to see his first grandchild, expected around September or October.
ON 03/13--> I had lengthy discussion with sister (patient gave permission to discuss his current condition and prognosis)--> she seems to understand clearly and she will communicate this to patient and rest of his family.
Time spent 55 minutes
Anticipated Discharge: > 48 hours
Subjective/Interval History
-
Date of Service: March 16, 2024
Patient feels less short of breath overall. Patient still significant on left foot. No nausea vomiting or diarrhea. Afebrile
Objective Data
-
Labs:
Laboratory Results
03/16/24
04:37
WBC 9.2
Hgb 10.7 L
Hct 34.3 L
Plt Count 186
Sodium 137
Potassium 4.4
Chloride 99
Carbon Dioxide 27
BUN 89 H
Creatinine 2.0 H
Glucose 219 H
Calcium 9.7
Vital Signs:
Vital Signs
Temp Pulse Resp BP Pulse Ox
96 F L 71 16 105/78 100
03/16/24 07:28 03/16/24 09:00 03/16/24 08:08 03/16/24 07:30 03/16/24 08:08
I&O
03/15/24 03/16/24 03/17/24
06:59 06:59 06:59
Intake Total 840 / 840 240 / 240
Output Total 1400 / 1400 2850 / 2850
Balance -560 / -560 -2610 / -2610
[2024-03-16] MEDS: NOVOLOG FLEXPEN-MODERATE RESISTANCE 5 UNITS SC ×3 (09:40→17:59)
[2024-03-16] MEDS: NOVOLOG FLEXPEN 4 UNITS SC ×3 (09:40→17:58)
[2024-03-16] MEDS: KCL 40 MEQ PO ×2 (09:44→20:05)
[2024-03-16] MEDS: COLCHICINE 0.6 MG PO (09:44)
[2024-03-16] MEDS: DULCOLAX 5 MG PO (09:44)
[2024-03-16] MEDS: LOW STRENGTH ASPIRIN 81 MG PO (09:44)
[2024-03-16] MEDS: TOPROL XL 25 MG PO (09:45)
[2024-03-16] MEDS: PACERONE 200 MG PO (09:45)
[2024-03-16] MEDS: DELTASONE 30 MG PO ×2 (09:46→20:04)
[2024-03-16] MEDS: ELIQUIS 5 MG PO ×2 (09:46→20:05)
[2024-03-16] MEDS: ZYLOPRIM 100 MG PO (09:46)
[2024-03-16] MEDS: MIRALAX 17 GRAMS PO (09:47)
[2024-03-16] MEDS: ATIVAN 0.5 MG PO (10:08)
[2024-03-16] MEDS: LASIX 40 MG IV (10:55)
[2024-03-16 12:39] LABS: Glucose - Point of Care 295 mg/dl (70-99)
[2024-03-16 18:06] LABS: Glucose - Point of Care 266 mg/dl (70-99)
--- NOTE | 2024-03-16 20:55 | PTCARENOTE ---
Received pt at handoff. AOx3. Pt remains on Bipap. POX 100%. Assessment noted as documented. Tele- AV paced. Pt offers no complaints at this time. Family at bedside. Currently in bed; call adina w/in reach.
[2024-03-16 21:39] LABS: Glucose - Point of Care 297 mg/dl (70-99)
[2024-03-16] MEDS: LANTUS 0.23 UNITS SC (21:39)
[2024-03-16] MEDS: LIPITOR 80 MG PO (21:39)
[2024-03-16] MEDS: MELATONIN 5 MG PO (21:39)
[2024-03-16] MEDS: PROTONIX 40 MG PO (21:39)
[2024-03-16] MEDS: FLOMAX 0.4 MG PO (21:39)
[2024-03-16] MEDS: LIDOCAINE 4% PATCH 1 PATCH TOPICAL (21:39)
[2024-03-17] VITALS (14 sets, daily range): BP systolic 99–119; BP diastolic 70–82; PULSE 2–80; BMI 28.5
[2024-03-17] MEDS: ProAmatine 5 MG PO ×3 (04:04→18:47)
[2024-03-17 05:07] LABS: Blood Urea Nitrogen 88 mg/dl (9-20); Carbon Dioxide 28 mmol/L (22-30); Chloride 100 mmol/L (98-107); Estimated Creatinine Clearance 43 ml/min; Glucose 192 mg/dl (70-99); Potassium 4.8 mmol/L (3.5-5.1); Sodium 137 mmol/L (135-145); eGFR 42.03
[2024-03-17] MEDS: ATROVENT NEBULES 0.5 MG INH ×2 (07:15→19:46)
[2024-03-17] MEDS: PULMICORT 0.5 MG INH ×2 (07:15→19:46)
[2024-03-17 07:37] LABS: Glucose - Point of Care 223 mg/dl (70-99)
--- NOTE | 2024-03-17 08:20 | W.PN.NEPH.PH ---
Today's Communication / Plan
-
Observe on diuretic
Weights down about 6 kg since admission
Assessment/Plan
-
Assessment:
CALVIN on CKD (bl Cr 1.3)
s/p cardiac arrest on 03/07 evening
acute on chronic hypoxic/hypercapnic resp failure
COPD
hx of stroke
pAfib
T2DM
Plan:
continue lasix cardiology to transition to po
Creatinine stable at 1.8
off farxiga still. can restart as outpatient
continue midodrine 5 TID, goal is for SBP ~100
K BID
limit colchicine exposure
-
-
Date of Service: March 17, 2024
CC / HPI / ROS
-
Chief Complaint:
alkalosis/CALVIN
History of Present Illness:
CALVIN/Cr down to 2.0 stable
Hemodynamically labile with midodrine support
BUN high stable at 89
weights are unchanged overall
diuresis with IV lasix for decompensated HFrEF
Review of Systems:
feels extremely SOB still
no CP
weights stable
worsening pain in left LE
Labs
-
Labs:
WBC 9.2 10^3/uL (4.8-10.8) 03/16/24 04:37
RBC 3.79 10^6/uL (4.70-6.10) L 03/16/24 04:37
Hgb 10.7 g/dL (13.0-18.0) L 03/16/24 04:37
Hct 34.3 % (39.0-52.0) L 03/16/24 04:37
Plt Count 186 10^3/uL (130-400) 03/16/24 04:37
Sodium 137 mmol/L (135-145) 03/17/24 04:13
Potassium 4.8 mmol/L (3.5-5.1) 03/17/24 04:13
Chloride 100 mmol/L (98-107) 03/17/24 04:13
Carbon Dioxide 28 mmol/L (22-30) 03/17/24 04:13
BUN 88 mg/dl (9-20) H 03/17/24 04:13
Creatinine 1.8 mg/dL (0.7-1.3) H 03/17/24 04:13
eGFR 42.03 03/17/24 04:13
Glucose 192 mg/dl (70-99) H 03/17/24 04:13
Calcium 10.0 mg/dl (8.4-10.2) 03/17/24 04:13
Nfa-B-Jiyelwueyie Pept [id number] pg/ml 03/07/24 20:19
Albumin 3.9 g/dl (3.5-5.0) 03/11/24 06:06
Physical Exam
-
Vital Signs:
Vital Signs
Temp Pulse Resp BP Pulse Ox
96.4 F L 78 20 99/70 100
03/17/24 07:31 03/17/24 07:20 03/17/24 07:31 03/17/24 04:05 03/17/24 07:31
Cardiovascular:: Regular rate and rhythm
Respiratory:: Bilateral: Coarse
Lung Excursion:: Normal
Abdomen:: Nontender and Soft
Bowel Sounds:: Normal
Extremity Edema:: None: Bilateral:
Yan Catheter: Yes
[2024-03-17] MEDS: LASIX 40 MG IV (08:41)
--- NOTE | 2024-03-17 09:07 | W.PN.HOSP.TC ---
Today's Communication/Plan
-
Increase short acting insulin. Continue IV Lasix. Monitor renal function and blood glucose.
Assessment / Plan
Assessment / Plan
Gen-AAOx3, NAD, BiPAP mask
HEENT-NC, AT, anicteric, clear oral mm
Neck-supple
CV-reg, no M, +S1/S2, tender anterior chest to palpation
Lungs-clear B/L
Abd-soft, NT, ND
Ext-left pedal edema
Musculoskeletal-no cyanosis, clubbing. Severe allodynia on left ankle/foot.
Skin-warm and dry
Neuro-grossly non-focal
Psych-calm, cooperative
A/P:
In-hospital cardiac arrest -March 07 evening. Required 3 minutes of CPR then had ROSC. Defibrillator did not fire as his threshold is 171 bpm. Cardiology believes that either fast AF/AT or VT precipitated his arrest. ICD was reprogrammed to treat
V. tach at 160 bpm.
Acute on chronic hypoxic/hypercapnic respiratory failure -likely multifactorial etiology including COPD, heart failure, other. Currently on 4 L nasal cannula oxygen and BIPAP.
On IV diuresis per cardiology and nephro.
Patient uses a home ventilator at nighttime, 4 to 6 L of nasal cannula oxygen during the day.
Acute on chronic heart failure with reduced EF exacerbation -confirmed diagnosis with elevated PCWP of 47 on RHC. Echocardiogram shows LVEF of 10 to 15%, severe diffuse global hypokinesis, RV not well-visualized, mild TR. He is on furosemide 80 mg
twice daily at home. Currently on IV Lasix 40 mg daily. I's and O's remain negative. Weight down to 87.3 Kg today. Cardio discontinue nitrates due to blood pressure limitations.
Gout attack left foot-continue prednisone 30 mg twice a day and will start taper tomorrow, trying to avoid NSAIDs due to renal failure. Nephrology discontinued colchicine. Uric acid 16.9, obtain x-ray of the left foot and no fractures. Uric acid
lowering agents down the road.
Chronic metabolic alkalosis -acetazolamide started by nephrology. Bicarb 28 today.
Hypokalemia -replete and trend when necessary
Hyponatremia -137 today
Troponin elevation -likely acute nonischemic myocardial injury. Troponin trending down.
BiV ICD
CALVIN on CKD 3A -creatinine 1.8 today. Yan catheter placed. Nephrology following. Possible cardiorenal syndrome versus hypotension induced ATN versus other. Nephrology has reduced dose of furosemide to once daily but remains on IV.
COPD without exacerbation
History of stroke
Paroxysmal atrial fibrillation -on chronic amiodarone, Eliquis.
DM2 with hyperglycemia -hemoglobin A1c 8.0%, much improved compared to last year. At home, he is on glipizide 5 mg daily, Farxiga 10 mg daily, Lantus 23 units at bedtime, and also on NovoLog 22 units AC. Glucose elevated this morning. Continue
current dose of Lantus and continue to hold oral hypoglycemics, but given hyperglycemia while on steroids, will increase aspart to his home doses of 22 units with meals, and continue moderate resistance scale.
LOREN
Full code -discussed with patient, he wants to remain a full code. Unfortunately his overall prognosis remains poor given severe cardiomyopathy and presentation with severe respiratory failure. Now developing multiorgan failure. Patient seems to
lack insight into his overall prognosis. During Dr Choi goals of care discussion, he was too focused on talking about tuna fish and other dietary modifications. Dr. Choi tried to explain to him that he really should focus on quality of life
given his poor prognosis and limited life span. Hospice should be considered. He states that he wants to live to see his first grandchild, expected around September or October.
I had lengthy discussion with sister (patient gave permission to discuss his current condition and prognosis)--> she seems to understand clearly and she will communicate this to patient and rest of his family.
Time spent 55 minutes
Anticipated Discharge: > 48 hours
Subjective/Interval History
-
Date of Service: March 17, 2024
Patient feels better with His breathing. Still having pain on the left foot. No chest pain.
Objective Data
-
Labs:
Laboratory Results
03/17/24
04:13
Sodium 137
Potassium 4.8
Chloride 100
Carbon Dioxide 28
BUN 88 H
Creatinine 1.8 H
Glucose 192 H
Calcium 10.0
Vital Signs:
Vital Signs
Temp Pulse Resp BP Pulse Ox
96.4 F L 69 20 100/72 100
03/17/24 07:31 03/17/24 08:41 03/17/24 07:31 03/17/24 08:41 03/17/24 07:31
I&O
03/16/24 03/17/24 03/18/24
06:59 06:59 06:59
Intake Total 240 / 240 960 / 960
Output Total 2850 / 2850 1999 / 1999
Balance -2610 / -2610 -1040 / -1040
[2024-03-17] MEDS: NOVOLOG FLEXPEN-MODERATE RESISTANCE 3 UNITS SC (09:17)
[2024-03-17] MEDS: NOVOLOG FLEXPEN 4 UNITS SC ×2 (09:17→12:34)
[2024-03-17] MEDS: ROXICODONE 2.5 MG PO (09:18)
[2024-03-17] MEDS: KCL 40 MEQ PO ×2 (09:21→20:18)
[2024-03-17] MEDS: LOW STRENGTH ASPIRIN 81 MG PO (09:21)
[2024-03-17] MEDS: DELTASONE 30 MG PO ×2 (09:22→20:18)
[2024-03-17] MEDS: ELIQUIS 5 MG PO ×2 (09:22→20:18)
[2024-03-17] MEDS: ZYLOPRIM 100 MG PO (09:23)
[2024-03-17] MEDS: MIRALAX 17 GRAMS PO (09:24)
[2024-03-17] MEDS: DULCOLAX 5 MG PO (09:24)
[2024-03-17] MEDS: PACERONE 200 MG PO (11:24)
[2024-03-17] MEDS: TOPROL XL 25 MG PO (11:24)
[2024-03-17 12:35] LABS: Glucose - Point of Care 301 mg/dl (70-99)
[2024-03-17] MEDS: NOVOLOG FLEXPEN-MODERATE RESISTANCE 7 UNITS SC (12:35)
--- NOTE | 2024-03-17 13:14 | CM ---
CM following for DC planning needs.
Met with patient at bedside. Pt. was sleepy, on BiPAP.
At this time, DC needs unknown. Pt. declining SNF but requiring maxA. He has private duty care 4h/d. Also was referred to [facility], accepted.
Will cont. to follow closely.
[2024-03-17 18:15] LABS: Glucose - Point of Care 252 mg/dl (70-99)
[2024-03-17] MEDS: NOVOLOG FLEXPEN-MODERATE RESISTANCE SC (18:17)
[2024-03-17] MEDS: NOVOLOG FLEXPEN 15 UNITS SC (18:18)
--- NOTE | 2024-03-17 18:22 | PTCARENOTE ---
Pt's blood glucose 252. Pt states that he takes 15 units of novolog with meals at home. Pt treated w/ 15 units of novolog pre dinner. Will inform MD. Will monitor.
--- NOTE | 2024-03-17 18:41 | PTCARENOTE ---
Pt states that he is on a NIV (non-invasive ventilator) at home. He insists on using the BIPAP continuous around the clock. Will monitor.
[2024-03-17 21:38] LABS: Glucose - Point of Care 196 mg/dl (70-99)
[2024-03-17] MEDS: FLOMAX 0.4 MG PO (22:33)
[2024-03-17] MEDS: MELATONIN 5 MG PO (22:34)
[2024-03-17] MEDS: LIDOCAINE 4% PATCH TOPICAL (22:34)
[2024-03-17] MEDS: PROTONIX 40 MG PO (22:34)
[2024-03-17] MEDS: LIPITOR 80 MG PO (22:34)
[2024-03-17] MEDS: LANTUS 0.23 UNITS SC (22:34)
[2024-03-17] MEDS: ATIVAN 0.5 MG PO (22:35)
[2024-03-18] VITALS (8 sets, daily range): BP systolic 103–119; BP diastolic 70–80; PULSE 2–71; BMI 29.2
[2024-03-18] MEDS: ProAmatine 5 MG PO ×3 (03:43→19:46)
[2024-03-18 04:35] LABS: Blood Urea Nitrogen 95 mg/dl (9-20); Calcium 9.8 mg/dl (8.4-10.2); Carbon Dioxide 23 mmol/L (22-30); Chloride 99 mmol/L (98-107); Estimated Creatinine Clearance 38 ml/min; Glucose 194 mg/dl (70-99); Potassium 5.4 mmol/L (3.5-5.1); Sodium 134 mmol/L (135-145); eGFR 37.04
[2024-03-18] MEDS: PULMICORT 0.5 MG INH ×2 (07:19→20:23)
[2024-03-18] MEDS: ATROVENT NEBULES 0.5 MG INH ×2 (07:19→20:23)
[2024-03-18 07:29] LABS: Glucose - Point of Care 219 mg/dl (70-99)
[2024-03-18] MEDS: LASIX 40 MG IV (08:44)
[2024-03-18] MEDS: ELIQUIS 5 MG PO ×2 (08:45→19:46)
[2024-03-18] MEDS: TOPROL XL 25 MG PO (08:45)
[2024-03-18] MEDS: DULCOLAX 5 MG PO (08:45)
[2024-03-18] MEDS: ZYLOPRIM 100 MG PO (08:45)
[2024-03-18] MEDS: DELTASONE 30 MG PO (08:45)
[2024-03-18] MEDS: LOW STRENGTH ASPIRIN 81 MG PO (08:45)
[2024-03-18] MEDS: KCL 40 MEQ PO (08:45)
[2024-03-18] MEDS: PACERONE 200 MG PO (08:45)
[2024-03-18] MEDS: NOVOLOG FLEXPEN-MODERATE RESISTANCE 3 UNITS SC ×2 (08:46→17:49)
[2024-03-18] MEDS: NOVOLOG FLEXPEN 15 UNITS SC ×3 (08:46→17:49)
[2024-03-18] MEDS: MIRALAX 17 GRAMS PO (08:46)
--- NOTE | 2024-03-18 09:54 | W.PN.NEPH.PH ---
Today's Communication / Plan
-
Holding potassium
Change Lasix to p.o.
Assessment/Plan
-
Assessment:
CALVIN on CKD (bl Cr 1.3)
s/p cardiac arrest on 03/07 evening
acute on chronic hypoxic/hypercapnic resp failure
COPD
hx of stroke
pAfib
T2DM
Plan:
change lasix to po 40mg daily
Creatinine at 2
Remains grossly nonoliguric via Yan
off farxiga still. can restart as outpatient
continue midodrine 5 TID, goal is for SBP ~100
Potassium held
limit colchicine exposure
Not much more to offer
-
-
Date of Service: March 18, 2024
CC / HPI / ROS
-
Chief Complaint:
alkalosis/CALVIN
History of Present Illness:
CALVIN/Cr down to 2.0 stable
Hemodynamically labile with midodrine support
BUN high stable at 89
weights are unchanged overall
diuresis with IV lasix for decompensated HFrEF
Review of Systems:
feels extremely SOB still on BiPAP
no CP
weights stable
Yan
Labs
-
Labs:
WBC 9.2 10^3/uL (4.8-10.8) 03/16/24 04:37
RBC 3.79 10^6/uL (4.70-6.10) L 03/16/24 04:37
Hgb 10.7 g/dL (13.0-18.0) L 03/16/24 04:37
Hct 34.3 % (39.0-52.0) L 03/16/24 04:37
Plt Count 186 10^3/uL (130-400) 03/16/24 04:37
Sodium 134 mmol/L (135-145) L 03/18/24 03:50
Potassium 5.4 mmol/L (3.5-5.1) H 03/18/24 03:50
Chloride 99 mmol/L (98-107) 03/18/24 03:50
Carbon Dioxide 23 mmol/L (22-30) 03/18/24 03:50
BUN 95 mg/dl (9-20) H 03/18/24 03:50
Creatinine 2.0 mg/dL (0.7-1.3) H 03/18/24 03:50
eGFR 37.04 03/18/24 03:50
Glucose 194 mg/dl (70-99) H 03/18/24 03:50
Calcium 9.8 mg/dl (8.4-10.2) 03/18/24 03:50
Qhc-I-Qkilnkoybzb Pept 38187 pg/ml 03/07/24 20:19
Albumin 3.9 g/dl (3.5-5.0) 03/11/24 06:06
Physical Exam
-
Vital Signs:
Vital Signs
Temp Pulse Resp BP Pulse Ox
97.5 F 69 18 112/76 98
03/18/24 03:51 03/18/24 08:44 03/18/24 07:23 03/18/24 08:44 03/18/24 07:23
Cardiovascular:: Regular rate and rhythm
Respiratory:: Bilateral: Coarse
Lung Excursion:: Normal
Abdomen:: Nontender and Soft
Bowel Sounds:: Normal
Extremity Edema:: None: Bilateral:
Yan Catheter: Yes
--- NOTE | 2024-03-18 10:46 | W.PN.HOSP.TC ---
Today's Communication/Plan
-
Continue diuretics but transition to oral. Continue oral steroids.
Assessment / Plan
Assessment / Plan
Gen-AAOx3, NAD, BiPAP mask
HEENT-NC, AT, anicteric, clear oral mm
Neck-supple
CV-reg, no M, +S1/S2, tender anterior chest to palpation
Lungs-clear B/L
Abd-soft, NT, ND
Ext-left pedal edema
Musculoskeletal-no cyanosis, clubbing. Severe allodynia on left ankle/foot.
Skin-warm and dry
Neuro-grossly non-focal
Psych-calm, cooperative
A/P:
In-hospital cardiac arrest -March 07 evening. Required 3 minutes of CPR then had ROSC. Defibrillator did not fire as his threshold is 171 bpm. Cardiology believes that either fast AF/AT or VT precipitated his arrest. ICD was reprogrammed to treat
V. tach at 160 bpm.
Acute on chronic hypoxic/hypercapnic respiratory failure -likely multifactorial etiology including COPD, heart failure, other. Currently on 4 L nasal cannula oxygen and BIPAP.
On IV diuresis per cardiology and nephro. Today transition to oral Lasix.
Patient uses a home ventilator at nighttime, 4 to 6 L of nasal cannula oxygen during the day.
Acute on chronic heart failure with reduced EF exacerbation -confirmed diagnosis with elevated PCWP of 47 on RHC. Echocardiogram shows LVEF of 10 to 15%, severe diffuse global hypokinesis, RV not well-visualized, mild TR. He is on furosemide 80 mg
twice daily at home. Currently on IV Lasix 40 mg daily-Today transition to oral Lasix.. I's and O's remain negative. Weight down to 87.4 Kg yesterday adn today 89.7 but they have used different scales. Cardio discontinued nitrates due to blood
pressure limitations.
Gout attack left foot-continue prednisone but taper down to 20 mg twice a day, trying to avoid NSAIDs due to renal failure. Nephrology discontinued colchicine. Uric acid 16.9, obtain x-ray of the left foot and no fractures. Uric acid lowering
agents down the road.
Chronic metabolic alkalosis -acetazolamide started by nephrology. Bicarb 23 today.
Hypokalemia -replete and trend when necessary
Hyponatremia -134 today
Hyperkalemia- K 5.4-->Hold K supplements and since on Lasix repeat K in am
Troponin elevation -likely acute nonischemic myocardial injury. Troponin trending down.
BiV ICD
CALVIN on CKD 3A -creatinine 2 today. Yan catheter placed. Nephrology following. Possible cardiorenal syndrome versus hypotension induced ATN versus other. Nephrology has reduced dose of furosemide to once daily but remains on IV-Today transition
to oral Lasix..
COPD without exacerbation
History of stroke
Paroxysmal atrial fibrillation -on chronic amiodarone, Eliquis.
DM2 with hyperglycemia -hemoglobin A1c 8.0%, much improved compared to last year. At home, he is on glipizide 5 mg daily, Farxiga 10 mg daily, Lantus 23 units at bedtime, and also on NovoLog 22 units AC. Glucose elevated this morning. Continue
current dose of Lantus and continue to hold oral hypoglycemics, but given hyperglycemia while on steroids; increase aspart to his home doses of 15 units with meals, and continue moderate resistance scale. Anticipate blood sugars will improve with
increased doses of insulin and decreasing doses of steroids but monitor closely.
LOREN
Full code -discussed with patient, he wants to remain a full code. Unfortunately his overall prognosis remains poor given severe cardiomyopathy and presentation with severe respiratory failure. Now developing multiorgan failure. Patient seems to
lack insight into his overall prognosis. During Dr Choi goals of care discussion, he was too focused on talking about tuna fish and other dietary modifications. Dr. Choi tried to explain to him that he really should focus on quality of life
given his poor prognosis and limited life span. Hospice should be considered. He states that he wants to live to see his first grandchild, expected around September or October.
I had lengthy discussion with sister (patient gave permission to discuss his current condition and prognosis)--> she seems to understand clearly and she will communicate this to patient and rest of his family.
Time spent 55 minutes
Anticipated Discharge: > 48 hours
Subjective/Interval History
-
Date of Service: March 18, 2024
Patient less shortness of breath. No chest pain. Less pain in ankle/foot today
Objective Data
-
Labs:
Laboratory Results
03/18/24
03:50
Sodium 134 L
Potassium 5.4 H
Chloride 99
Carbon Dioxide 23
BUN 95 H
Creatinine 2.0 H
Glucose 194 H
Calcium 9.8
Vital Signs:
Vital Signs
Temp Pulse Resp BP Pulse Ox
97.5 F 69 18 112/76 98
03/18/24 03:51 03/18/24 08:44 03/18/24 07:23 03/18/24 08:44 03/18/24 07:23
I&O
03/17/24 03/18/24 03/19/24
06:59 06:59 06:59
Intake Total 960 / 960 700 / 700
Output Total 1999 / 1999
Balance -1040 / -1040 -1375 / -1375
[2024-03-18 13:15] LABS: Glucose - Point of Care 336 mg/dl (70-99)
[2024-03-18] MEDS: NOVOLOG FLEXPEN-MODERATE RESISTANCE 7 UNITS SC (13:21)
--- NOTE | 2024-03-18 15:24 | PTCARENOTE ---
Pt AOx3, no complaints of pain or discomfort. Pt refusing to remove BiPAP, MDs aware. Assist x1 OOB with walker. Blood sugars monitored. VSS, AV paced on tele monitor. Call holden within reach.
[2024-03-18 17:22] LABS: Glucose - Point of Care 239 mg/dl (70-99)
[2024-03-18] MEDS: DELTASONE 20 MG PO (19:46)
[2024-03-18] MEDS: ROXICODONE 2.5 MG PO (19:54)
--- NOTE | 2024-03-18 20:23 | PTCARENOTE ---
Resumed care of pt laying in bed sleeping with Bipap in place. Pt AAOx3, easily agitated. Emotional support provided. Pt reports pain in left foot/left leg. PRN pain medication administered as ordered. POX 99% on Bipap 30/06, 3 LO2. Lungs dec t/o.
HR in the 80's 100% Vpaced on the monitor. Pacemaker/ AICD in place. Hyper bowel, round obese abd. Yan cath in place draining yellow urine. BSCx1 when needed. Weak pedal pulses present. +1 LLE edema noted. Sacral foam in place. B/L Knee high seq
in place. Right AC int capped. Call holden in reach. Will continue to monitor.
[2024-03-18 22:15] LABS: Glucose - Point of Care 200 mg/dl (70-99)
[2024-03-18] MEDS: LANTUS 0.23 UNITS SC (22:15)
[2024-03-18] MEDS: MELATONIN 5 MG PO (22:16)
[2024-03-18] MEDS: FLOMAX 0.4 MG PO (22:16)
[2024-03-18] MEDS: LIPITOR 80 MG PO (22:16)
[2024-03-18] MEDS: PROTONIX 40 MG PO (22:16)
[2024-03-18] MEDS: LIDOCAINE 4% PATCH TOPICAL (22:17)
[2024-03-19] VITALS (10 sets, daily range): BP systolic 102–112; BP diastolic 69–77; PULSE 2–72; BMI 28.2
[2024-03-19] MEDS: ProAmatine 5 MG PO ×3 (03:20→18:08)
[2024-03-19 04:32] LABS: Blood Urea Nitrogen 93 mg/dl (9-20); Calcium 9.5 mg/dl (8.4-10.2); Carbon Dioxide 25 mmol/L (22-30); Chloride 102 mmol/L (98-107); Estimated Creatinine Clearance 40 ml/min; Glucose 167 mg/dl (70-99); Potassium 5.1 mmol/L (3.5-5.1); Sodium 137 mmol/L (135-145); eGFR 39.39
[2024-03-19] MEDS: ATROVENT NEBULES 0.5 MG INH ×2 (07:21→18:07)
[2024-03-19] MEDS: PULMICORT 0.5 MG INH ×2 (07:22→18:07)
[2024-03-19 07:49] LABS: Glucose - Point of Care 211 mg/dl (70-99)
[2024-03-19] MEDS: NOVOLOG FLEXPEN 15 UNITS SC ×3 (08:05→17:32)
[2024-03-19] MEDS: NOVOLOG FLEXPEN-MODERATE RESISTANCE 3 UNITS SC ×2 (08:05→12:12)
[2024-03-19] MEDS: DELTASONE 20 MG PO ×2 (08:07→20:59)
[2024-03-19] MEDS: TOPROL XL 25 MG PO (08:07)
[2024-03-19] MEDS: ZYLOPRIM 100 MG PO (08:07)
[2024-03-19] MEDS: LASIX 40 MG PO (08:08)
[2024-03-19] MEDS: ELIQUIS 5 MG PO ×2 (08:08→20:59)
[2024-03-19] MEDS: PACERONE 200 MG PO (08:08)
[2024-03-19] MEDS: LOW STRENGTH ASPIRIN 81 MG PO (08:08)
[2024-03-19] MEDS: DULCOLAX 5 MG PO (08:09)
[2024-03-19] MEDS: MIRALAX PO (08:12)
--- NOTE | 2024-03-19 08:25 | W.PN.NEPH.PH ---
Today's Communication / Plan
-
observe
Assessment/Plan
-
Assessment:
CALVIN on CKD (bl Cr 1.3)
s/p cardiac arrest on 03/07 evening
acute on chronic hypoxic/hypercapnic resp failure
COPD
hx of stroke
pAfib
T2DM
Plan:
po lasix 40mg daily to continue
Creatinine at 1.9 with BUN around 93
Remains grossly nonoliguric via Yan
off farxiga still. can restart as outpatient
continue midodrine 5 TID, goal is for SBP ~100
Potassium held
limit colchicine exposure
Not much more to offer
-
-
Date of Service: March 19, 2024
CC / HPI / ROS
-
Chief Complaint:
alkalosis/CALVIN
History of Present Illness:
CALVIN/Cr down to 1.9 stable
Hemodynamically labile with midodrine support
BUN high stable at 93
Review of Systems:
feels extremely SOB still on BiPAP
no CP
weights stable
Yan
Labs
-
Labs:
WBC 9.2 10^3/uL (4.8-10.8) 03/16/24 04:37
RBC 3.79 10^6/uL (4.70-6.10) L 03/16/24 04:37
Hgb 10.7 g/dL (13.0-18.0) L 03/16/24 04:37
Hct 34.3 % (39.0-52.0) L 03/16/24 04:37
Plt Count 186 10^3/uL (130-400) 03/16/24 04:37
Sodium 137 mmol/L (135-145) 03/19/24 03:30
Potassium 5.1 mmol/L (3.5-5.1) 03/19/24 03:30
Chloride 102 mmol/L (98-107) 03/19/24 03:30
Carbon Dioxide 25 mmol/L (22-30) 03/19/24 03:30
BUN 93 mg/dl (9-20) H 03/19/24 03:30
Creatinine 1.9 mg/dL (0.7-1.3) H 03/19/24 03:30
eGFR 39.39 03/19/24 03:30
Glucose 167 mg/dl (70-99) H 03/19/24 03:30
Calcium 9.5 mg/dl (8.4-10.2) 03/19/24 03:30
Jvq-H-Nxurimhacut Pept 30376 pg/ml 03/07/24 20:19
Albumin 3.9 g/dl (3.5-5.0) 03/11/24 06:06
Physical Exam
-
Vital Signs:
Vital Signs
Temp Pulse Resp BP Pulse Ox
97.4 F 67 18 111/76 99
03/19/24 07:51 03/19/24 07:51 03/19/24 07:51 03/19/24 07:43 03/19/24 07:51
Cardiovascular:: Regular rate and rhythm
Respiratory:: Bilateral: Coarse
Lung Excursion:: Normal
Abdomen:: Nontender and Soft
Bowel Sounds:: Normal
Extremity Edema:: None: Bilateral:
Yan Catheter: Yes
--- NOTE | 2024-03-19 08:50 | PTCARENOTE ---
Assumed care of pt from night RN. Pt received awake and alert, Ox3. VSS, CM shows 100% [employer] WORK[employer], POX 98% on Bipap 18/10+3l. He keeps Bipap on most of day, briefly removes to eat. Pt generally is tender to touch even when doing an axillary temp. He c/o
quality and amount of food he is given at every meal. Will monitor closely.
--- NOTE | 2024-03-19 09:08 | W.PN.HOSP.TC ---
Today's Communication/Plan
-
Oral diuretics. Oral steroids.
Assessment / Plan
Assessment / Plan
Gen-AAOx3, NAD, BiPAP mask
HEENT-NC, AT, anicteric, clear oral mm
Neck-supple
CV-reg, no M, +S1/S2, tender anterior chest to palpation
Lungs-clear B/L
Abd-soft, NT, ND
Ext-left pedal edema
Musculoskeletal-no cyanosis, clubbing. Severe allodynia on left ankle/foot.
Skin-warm and dry
Neuro-grossly non-focal
Psych-calm, cooperative
A/P:
In-hospital cardiac arrest -March 07 evening. Required 3 minutes of CPR then had ROSC. Defibrillator did not fire as his threshold is 171 bpm. Cardiology believes that either fast AF/AT or VT precipitated his arrest. ICD was reprogrammed to treat
V. tach at 160 bpm.
Acute on chronic hypoxic/hypercapnic respiratory failure -likely multifactorial etiology including COPD, heart failure, other. Currently on 4 L nasal cannula oxygen and BIPAP.
On IV diuresis per cardiology and nephro. Yesterday transitioned to oral Lasix and tolerating well.
Patient uses a home ventilator at nighttime, 4 to 6 L of nasal cannula oxygen during the day.
Acute on chronic heart failure with reduced EF exacerbation -confirmed diagnosis with elevated PCWP of 47 on RHC. Echocardiogram shows LVEF of 10 to 15%, severe diffuse global hypokinesis, RV not well-visualized, mild TR. He is on furosemide 80 mg
twice daily at home. Currently on IV Lasix 40 mg daily- Yesterday transitioned to oral Lasix and tolerating well. I's and O's remain negative. Weight down to 86.5 Kg today although concerns they have used different scales. Cardio discontinued
nitrates due to blood pressure limitations. Can transfer to telemetry. PT OT reeval upon transfer. is manager for discharge disposition.
Gout attack left foot-continue prednisone but tapered down to 20 mg twice a day, trying to avoid NSAIDs due to renal failure. Nephrology discontinued colchicine. Uric acid 16.9, obtain x-ray of the left foot and no fractures. Uric acid lowering
agents down the road.
Chronic metabolic alkalosis -acetazolamide started by nephrology. Bicarb 25 today.
Hypokalemia -replete and trend when necessary
Hyponatremia -improved 137 today
Hyperkalemia- resolved- K 5.1 today. holding K supplements
Troponin elevation -likely acute nonischemic myocardial injury. Troponin trending down.
BiV ICD
CALVIN on CKD 3A -creatinine 1.9 today. Yan catheter placed. Nephrology following. Possible cardiorenal syndrome versus hypotension induced ATN versus other. Nephrology has reduced dose of furosemide to once daily but remains on IV- Yesterday
transitioned to oral Lasix and tolerating well.
COPD without exacerbation. Changed inhalers to nebs.
History of stroke
Paroxysmal atrial fibrillation -on chronic amiodarone, Eliquis.
DM2 with hyperglycemia -hemoglobin A1c 8.0%, much improved compared to last year. At home, he is on glipizide 5 mg daily, Farxiga 10 mg daily, Lantus 23 units at bedtime, and also on NovoLog 22 units AC. Glucose elevated this morning. Continue
current dose of Lantus and continue to hold oral hypoglycemics, but given hyperglycemia while on steroids; increase aspart to his home doses of 15 units with meals, and continue moderate resistance scale. Anticipate blood sugars will cont to
improve with increased doses of insulin and decreasing doses of steroids but monitor closely.
LOREN
Full code -discussed with patient, he wants to remain a full code. Unfortunately his overall prognosis remains poor given severe cardiomyopathy and presentation with severe respiratory failure. Now developing multiorgan failure. Patient seems to
lack insight into his overall prognosis. During Dr Choi goals of care discussion, he was too focused on talking about tuna fish and other dietary modifications. Dr. Choi tried to explain to him that he really should focus on quality of life
given his poor prognosis and limited life span. Hospice should be considered. He states that he wants to live to see his first grandchild, expected around September or October.
I had lengthy discussion with sister (patient gave permission to discuss his current condition and prognosis)--> she seems to understand clearly and she will communicate this to patient and rest of his family.
Time spent 55 minutes
Anticipated Discharge: 24 - 48 hours
Subjective/Interval History
-
Date of Service: March 19, 2024
Patient feels less short of breath. No chest pain. Generalized deconditioning and weakness.
Objective Data
-
Labs:
Laboratory Results
03/19/24
03:30
Sodium 137
Potassium 5.1
Chloride 102
Carbon Dioxide 25
BUN 93 H
Creatinine 1.9 H
Glucose 167 H
Calcium 9.5
Vital Signs:
Vital Signs
Temp Pulse Resp BP Pulse Ox
97.4 F 67 18 111/76 98
03/19/24 07:51 03/19/24 07:51 03/19/24 07:51 03/19/24 07:43 03/19/24 08:39
I&O
03/18/24 03/19/24 03/20/24
06:59 06:59 06:59
Intake Total 700 / 700
Output Total 2074 187 / 187
Balance -1375 / -1375 -1875 / -1875
[2024-03-19] MEDS: ROXICODONE 2.5 MG PO ×2 (10:55→20:54)
--- NOTE | 2024-03-19 11:00 | PTCARENOTE ---
Roxicodone given as per NOV for 6/10 left leg pain.
[2024-03-19 12:12] LABS: Glucose - Point of Care 214 mg/dl (70-99)
--- NOTE | 2024-03-19 13:51 | PTCARENOTE ---
Pt downgraded to telemetry per Dr. Mercer. Report called to SINDY Adams on . Pt tsf to 339-2 on 4 liters n/c.
[2024-03-19 17:32] LABS: Glucose - Point of Care 145 mg/dl (70-99)
[2024-03-19] MEDS: NOVOLOG FLEXPEN-MODERATE RESISTANCE SC (17:33)
[2024-03-19] MEDS: PROTONIX 40 MG PO (20:56)
[2024-03-19] MEDS: MELATONIN 5 MG PO (20:56)
[2024-03-19] MEDS: LIPITOR 80 MG PO (20:58)
[2024-03-19] MEDS: FLOMAX 0.4 MG PO (20:58)
[2024-03-19 21:52] LABS: Glucose - Point of Care 236 mg/dl (70-99)
[2024-03-19] MEDS: ATIVAN 0.5 MG PO (21:59)
[2024-03-19] MEDS: LANTUS 0.23 UNITS SC (21:59)
[2024-03-19] MEDS: LIDOCAINE 4% PATCH TOPICAL (22:23)
[2024-03-19] MEDS: LIDOCAINE 4% PATCH 1 PATCH TOPICAL (23:03)
[2024-03-20] VITALS (11 sets, daily range): BP systolic 91–141; BP diastolic 62–78; PULSE 2–76; O2SAT 98; BMI 28.3
[2024-03-20] MEDS: ProAmatine 5 MG PO ×3 (03:54→17:59)
[2024-03-20] MEDS: ROXICODONE 2.5 MG PO ×3 (03:54→20:08)
[2024-03-20] MEDS: ATROVENT NEBULES 0.5 MG INH ×2 (07:38→20:11)
[2024-03-20] MEDS: PULMICORT 0.5 MG INH ×2 (07:38→20:11)
[2024-03-20 07:47] LABS: Glucose - Point of Care 196 mg/dl (70-99)
[2024-03-20] MEDS: DULCOLAX 5 MG PO (08:33)
[2024-03-20] MEDS: DELTASONE 20 MG PO ×2 (08:33→20:02)
[2024-03-20] MEDS: PACERONE 200 MG PO (08:33)
[2024-03-20] MEDS: LOW STRENGTH ASPIRIN 81 MG PO (08:33)
[2024-03-20] MEDS: ELIQUIS 5 MG PO ×2 (08:33→20:02)
[2024-03-20] MEDS: LASIX 40 MG PO (08:33)
[2024-03-20] MEDS: ZYLOPRIM 100 MG PO (08:33)
[2024-03-20] MEDS: TOPROL XL 25 MG PO (08:34)
[2024-03-20] MEDS: NOVOLOG FLEXPEN 15 UNITS SC ×3 (08:34→17:58)
[2024-03-20] MEDS: NOVOLOG FLEXPEN-MODERATE RESISTANCE 1 UNITS SC ×2 (08:34→17:59)
[2024-03-20] MEDS: MIRALAX PO (08:46)
--- NOTE | 2024-03-20 11:00 | CM ---
Addendum entered by CARMITA Sloan 03/20/24 15:22:
Spoke with RN, who stated that patient has expressed to her that he will most likely want to return home at discharge. Met with patient, his son Mario who was at bedside. Patient stated that he has caregivers through the [facility] and someone comes out 7
days a week for 4 hours at a time. He confirmed that he at least in the past has had the option to increase his hours. 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 Patient was made aware that the indication on behalf of
medical staff, is for SNF. Patient stated that he almost at a SNF a few years ago and will never go back. Patient stated that was pronounced several times upon leaving the SNF by ambulance. Due to these circumstances he will never try
another one. Patient was asked how he will navigate his 9 steps that he has to enter. He stated that if he goes by ambulance the ambulance company can get him inside. Patient was asked asked if there is an emergency, what he would do and he replied
that he would call an ambulance in an emergency.
PT/OT came in to see patient. Patient made them aware that he wants to go home.
He selected [facility] for home health. Will review their notes and continue to relay to patient what is indicated for a safe discharge.
Addendum entered by CARMITA Sloan 03/20/24 11:06:
Received message from attending who stated that patient may be medically cleared for discharge tomorrow. Will meet with patient to review options at discharge. Per attending he also has questions regarding transportation. Will meet with him today.
Original Note:
Reviewed chart, per previous CM note, patient wanted to return home at discharge. Will review therapy notes and make recommendations to patient base on his progress per them.
Plan: Case management will continue to follow and assist with discharge planning. Home vrs SNF.
--- NOTE | 2024-03-20 11:04 | W.PN.HOSP.TC ---
Today's Communication/Plan
-
DC Yan
Voiding trial
Discharge planning
Assessment / Plan
Assessment / Plan
Gen-AAOx3, NAD, BiPAP mask
HEENT-NC, AT, anicteric, clear oral mm
Neck-supple
CV-reg, no M, +S1/S2, tender anterior chest to palpation
Lungs-clear B/L
Abd-soft, NT, ND
Ext-left pedal edema
Musculoskeletal-no cyanosis, clubbing. Severe allodynia on left ankle/foot.
Skin-warm and dry
Neuro-grossly non-focal
Psych-calm, cooperative
In-hospital cardiac arrest -March 07 evening. Required 3 minutes of CPR then had ROSC. Defibrillator did not fire as his threshold is 171 bpm. Cardiology believes that either fast AF/AT or VT precipitated his arrest. ICD was reprogrammed to treat
V. tach at 160 bpm.
Acute on chronic hypoxic/hypercapnic respiratory failure -likely multifactorial etiology including COPD, heart failure, other. Currently on 4 L nasal cannula oxygen and BIPAP.
Now on oral Lasix.
Patient uses a home ventilator at nighttime, 4 to 6 L of nasal cannula oxygen during the day.
Acute on chronic heart failure with reduced EF exacerbation -confirmed diagnosis with elevated PCWP of 47 on RHC. Echocardiogram shows LVEF of 10 to 15%, severe diffuse global hypokinesis, RV not well-visualized, mild TR. He is on furosemide 80 mg
twice daily at home. Continue oral Lasix. Weight down to 86.5 Kg today although concerns they have used different scales. Cardio discontinued nitrates due to blood pressure limitations.
Gout attack left foot-continue prednisone but tapered down to 20 mg twice a day, trying to avoid NSAIDs due to renal failure. Nephrology discontinued colchicine. Uric acid 16.9, obtain x-ray of the left foot and no fractures. Uric acid lowering
agents down the road.
Chronic metabolic alkalosis -acetazolamide discontinued. Last bicarb check .
Hypokalemia -resolved.
Hyponatremia -improved 137 today
Hyperkalemia- resolved.
Troponin elevation -likely acute nonischemic myocardial injury. Troponin trending down.
BiV ICD
CALVIN on CKD 3A -creatinine 1.9 today. Yan catheter placed. Nephrology following. Possible cardiorenal syndrome versus hypotension induced ATN versus other. Nephrology has reduced dose of furosemide to once daily but remains on IV- Yesterday
transitioned to oral Lasix and tolerating well.
COPD without exacerbation. Changed inhalers to nebs.
History of stroke
Paroxysmal atrial fibrillation -on chronic amiodarone, Eliquis.
DM2 with hyperglycemia -hemoglobin A1c 8.0%, much improved compared to last year. At home, he is on glipizide 5 mg daily, Farxiga 10 mg daily, Lantus 23 units at bedtime, and also on NovoLog 22 units AC. Glucose elevated this morning. Continue
current dose of Lantus and continue to hold oral hypoglycemics, but given hyperglycemia while on steroids; increase aspart to his home doses of 15 units with meals, and continue moderate resistance scale. Anticipate blood sugars will cont to
improve with increased doses of insulin and decreasing doses of steroids but monitor closely.
LOREN
Full code
Dispo -anticipate discharge home with [facility] tomorrow. DC Yan catheter today, voiding trial. Patient agreeable with discharge plans. Case management aware.
Anticipated Discharge: Within 24 hours
Subjective/Interval History
-
Date of Service: March 20, 2024
Patient seen and examined. No new complaints.
Objective Data
-
Labs:
Laboratory Results
03/20/24
06:00
WBC Pending
Hgb Pending
Hct Pending
Plt Count Pending
Sodium Pending
Potassium Pending
Chloride Pending
Carbon Dioxide Pending
BUN Pending
Creatinine Pending
Glucose Pending
Calcium Pending
Vital Signs:
Vital Signs
Temp Pulse Resp BP Pulse Ox
96.6 F L 70 16 119/74 100
03/20/24 07:30 03/20/24 07:41 03/20/24 07:41 03/20/24 07:30 03/20/24 07:41
I&O
03/19/24 03/20/24 03/21/24
06:59 06:59 06:59
Intake Total 480 / 480
Output Total 1875 / 1875 1250 / 1250
Balance -1875 / -1875 -770 / -770
Review of Systems
-
History Source: Patient
All other systems: Reviewed and negative
--- NOTE | 2024-03-20 11:29 | W.PN.NEPH.PH ---
Today's Communication / Plan
-
follow BMP
Assessment/Plan
-
Assessment:
CALVIN on CKD (bl Cr 1.3)
s/p cardiac arrest on 03/07 evening
acute on chronic hypoxic/hypercapnic resp failure
COPD
hx of stroke
pAfib
T2DM
Plan:
po lasix 40mg daily to continue
follow BMP
Remains grossly nonoliguric via Yan
off farxiga still. can restart as outpatient
continue midodrine 5 TID, goal is for SBP ~100
increase allopurinol
-
-
Date of Service: March 20, 2024
CC / HPI / ROS
-
Chief Complaint:
alkalosis/CALVIN
History of Present Illness:
CALVIN/Cr down to 1.9 stable yesterday
no labs today yet
Hemodynamically labile with midodrine support
on steroids for LLE gout
Review of Systems:
feels SOB still on BiPAP
no CP
weights stable
Yan
Labs
-
Labs:
eGFR 39.39 03/19/24 03:30
Mgs-K-Bcmgjojcbxc Pept 23627 pg/ml 03/07/24 20:19
Albumin 3.9 g/dl (3.5-5.0) 03/11/24 06:06
Physical Exam
-
Vital Signs:
Vital Signs
Temp Pulse Resp BP Pulse Ox
96.6 F L 70 16 119/74 100
03/20/24 07:30 03/20/24 07:41 03/20/24 07:41 03/20/24 07:30 03/20/24 07:41
Cardiovascular:: Regular rate and rhythm
Respiratory:: Bilateral: Coarse
Lung Excursion:: Normal
Abdomen:: Nontender and Soft
Bowel Sounds:: Normal
Extremity Edema:: None: Bilateral:
[2024-03-20 12:10] LABS: Glucose - Point of Care 211 mg/dl (70-99)
[2024-03-20] MEDS: ZYLOPRIM 200 MG PO (12:13)
[2024-03-20] MEDS: NOVOLOG FLEXPEN-MODERATE RESISTANCE 3 UNITS SC (12:14)
[2024-03-20 12:46] LABS: % Basophils 0.1 % (0-2); % Immature Granulocytes 0.5 % (0-0.5); % Lymphocytes 1.8 % (20.5-51.1); % Monocytes 5.5 % (1.7-9.3); % Neutrophils 92.1 % (42.2-75.2); Absolute Immature Granulocytes 0.1 10^3/uL (0-0.05); Absolute Lymphocytes 0.2 10^3/uL (1.2-3.4); Absolute Monocytes 0.7 10^3/uL (0.1-0.6); Hematocrit 36.5 % (39.0-52.0); Hemoglobin 11.8 g/dL (13.0-18.0); Mean Corp Hgb Conc. 32.3 g/dL (33.0-37.0); Mean Corpuscular Volume 86.7 fL (80.0-94.0); Nucleated Red Blood Cells % 0 % (-); Platelet Count 288 10^3/uL (130-400); Red Blood Cell Count 4.21 10^6/uL (4.70-6.10); Red Cell Dist. Width 15.1 % (11.5-14.5)
[2024-03-20 13:33] LABS: Blood Urea Nitrogen 90 mg/dl (9-20); Calcium 9.5 mg/dl (8.4-10.2); Carbon Dioxide 21 mmol/L (22-30); Chloride 98 mmol/L (98-107); Estimated Creatinine Clearance 43 ml/min; Glucose 194 mg/dl (70-99); Potassium 4.9 mmol/L (3.5-5.1); Sodium 132 mmol/L (135-145); eGFR 42.03
--- NOTE | 2024-03-20 17:31 | PTCARENOTE ---
lao pulled at 1730 d/t pt refusing lao removal throughout the day.
[2024-03-20 17:45] LABS: Glucose - Point of Care 186 mg/dl (70-99)
[2024-03-20] MEDS: XOPENEX 0.63 MG INHALANT SOLUTION INH (20:21)
[2024-03-20] MEDS: LIDOCAINE 4% PATCH 1 PATCH TOPICAL (20:59)
[2024-03-20] MEDS: LIPITOR 80 MG PO (20:59)
[2024-03-20] MEDS: PROTONIX 40 MG PO (20:59)
[2024-03-20] MEDS: FLOMAX 0.4 MG PO (20:59)
[2024-03-20 21:46] LABS: Glucose - Point of Care 220 mg/dl (70-99)
[2024-03-20] MEDS: LANTUS 0.23 UNITS SC (21:51)
[2024-03-20] MEDS: MELATONIN 5 MG PO (23:02)
[2024-03-20] MEDS: ATIVAN 0.5 MG PO (23:03)
[2024-03-21] MEDS: ProAmatine 5 MG PO ×2 (02:38→11:51)
[2024-03-21 03:00] VITALS: BP 110/73
[2024-03-21 04:15] VITALS: PULSE 2
[2024-03-21 05:25] VITALS: BMI 29.4
[2024-03-21 07:00] VITALS: BP 106/69
[2024-03-21 08:23] LABS: Glucose - Point of Care 170 mg/dl (70-99)
--- NOTE | 2024-03-21 08:29 | W.PN.HOSP.TC ---
Today's Communication/Plan
-
Bladder scan
Discharge
Assessment / Plan
Assessment / Plan
Gen-AAOx3, NAD, BiPAP mask
HEENT-NC, AT, anicteric, clear oral mm
Neck-supple
CV-reg, no M, +S1/S2, tender anterior chest to palpation
Lungs-clear B/L
Abd-soft, NT, ND
Ext-left pedal edema
Musculoskeletal-no cyanosis, clubbing. Severe allodynia on left ankle/foot.
Skin-warm and dry
Neuro-grossly non-focal
Psych-calm, cooperative
In-hospital cardiac arrest -March 07 evening. Required 3 minutes of CPR then had ROSC. Defibrillator did not fire as his threshold is 171 bpm. Cardiology believes that either fast AF/AT or VT precipitated his arrest. ICD was reprogrammed to treat
V. tach at 160 bpm.
Acute on chronic hypoxic/hypercapnic respiratory failure -likely multifactorial etiology including COPD, heart failure, other. Currently on 4 L nasal cannula oxygen and BIPAP.
Now on oral Lasix.
Patient uses a home ventilator at nighttime, 4 to 6 L of nasal cannula oxygen during the day.
Acute on chronic heart failure with reduced EF exacerbation -confirmed diagnosis with elevated PCWP of 47 on RHC. Echocardiogram shows LVEF of 10 to 15%, severe diffuse global hypokinesis, RV not well-visualized, mild TR. He is on furosemide 80 mg
twice daily at home. Continue oral Lasix. Weight down to 86.5 Kg today although concerns they have used different scales. Cardio discontinued nitrates due to blood pressure limitations.
Gout attack left foot-continue prednisone but tapered down to 20 mg twice a day, trying to avoid NSAIDs due to renal failure. Nephrology discontinued colchicine. Uric acid 16.9, obtained x-ray of the left foot and no fractures. Uric acid lowering
agents down the road.
Chronic metabolic alkalosis -acetazolamide discontinued.
Hyponatremia -132.
Hyperkalemia- resolved.
Troponin elevation -likely acute nonischemic myocardial injury. Troponin trending down.
BiV ICD
CALVIN on CKD 3A -creatinine 1.9 today. Yan catheter placed. Nephrology following. Possible cardiorenal syndrome versus hypotension induced ATN versus other. Nephrology has reduced dose of furosemide to once daily but remains on IV- Yesterday
transitioned to oral Lasix and tolerating well.
COPD without exacerbation. Changed inhalers to nebs.
History of stroke
Paroxysmal atrial fibrillation -on chronic amiodarone, Eliquis.
DM2 with hyperglycemia -hemoglobin A1c 8.0%, much improved compared to last year. At home, he is on glipizide 5 mg daily, Farxiga 10 mg daily, Lantus 23 units at bedtime, and also on NovoLog 22 units AC. Glucose 170 this morning. Continue current
dose of Lantus and continue to hold oral hypoglycemics, but given hyperglycemia while on steroids; increase aspart to his home doses of 15 units with meals, and continue moderate resistance scale. Resume Farxiga on discharge.
LOREN
Full code
Dispo -medically stable for discharge home today with VN. Outpatient follow-up. Check bladder scan prior to discharge as Yan catheter was removed yesterday. Discussed with RN.
35 minutes spent in discharge process.
Anticipated Discharge: Today
Subjective/Interval History
-
Date of Service: March 21, 2024
Patient seen and examined. No complaints.
Objective Data
-
Vital Signs:
Vital Signs
Temp Pulse Resp BP Pulse Ox
96.7 F L 73 18 106/69 100
03/21/24 03:00 03/21/24 07:00 03/21/24 07:00 03/21/24 07:00 03/21/24 07:00
I&O
03/20/24 03/21/24 03/22/24
06:59 06:59 06:59
Intake Total 480 / 480 720 / 720 960 / 960
Output Total 1250 / 1250 750 / 750 600 / 600
Balance -770 / -770 -30 / -30 360 / 360
Review of Systems
-
History Source: Patient
All other systems: Reviewed and negative
[2024-03-21] MEDS: ATROVENT NEBULES 0.5 MG INH (08:40)
[2024-03-21] MEDS: PULMICORT 0.5 MG INH (08:40)
[2024-03-21 08:42] VITALS: BMI 29.3
[2024-03-21] MEDS: XOPENEX 0.63 MG INHALANT SOLUTION INH (08:45)
--- NOTE | 2024-03-21 08:51 | W.DS.TRANS ---
DC Summary - Holistic Health Practitioner
-
Discharge Instructions:
Discharge Diagnosis/Procedures Heart failure exacerbation, gout flare,
electrolyte abnormalities, in-hospital cardiac
arrest
Diet Restrict fluids to 48 oz,Diabetic, Carb
Controlled,2 Gram Sodium
Activity As tolerated
Driving Restrictions Not until seen by your Dr
Bathing Restrictions None
Other Services VN,PT
Instructions: *CBC Heart Failure Instructions
Stand-Alone Forms:
Changes to Home Medications: No
Discharge Medications:
DC Medications w/original date entered in [facility]
apixaban 5 mg tablet (Eliquis) 5 mg PO BID 07/24/21
aspirin 81 mg chewable tablet 81 mg PO DAILY 07/24/21
melatonin 5 mg tablet 5 mg PO HS 07/24/21
nitroglycerin 0.4 mg sublingual tablet 0.4 mg sublingual [id number] PRN chest pain 08/01/21
atorvastatin 80 mg tablet 80 mg PO HS #30 tabs 08/21/21
dapagliflozin propanediol 10 mg tablet (Farxiga) 10 mg PO DAILY #30 tabs 08/21/21
amiodarone 200 mg tablet (Pacerone) 200 mg PO DAILY Arrhythmia 06/03/23
bisacodyl 5 mg tablet 5 mg PO DAILY Constipation 06/03/23
levalbuterol tartrate 45 mcg/actuation aerosol inhaler 1 puff inhalation R BID Lung/Breathing Issues 06/03/23
omeprazole 40 mg capsule,delayed release 40 mg PO HS Gastrointestinal Issue 06/03/23
revefenacin 175 mcg/3 mL solution for nebulization (Yupelri) 175 mcg inhalation R DAILY Lung/Breathing Issues 06/03/23
tamsulosin 0.4 mg capsule 0.4 mg PO HS Urinary Issue 06/03/23
insulin glargine 100 unit/mL (3 mL) subcutaneous pen (Lantus Solostar U-100 Insulin) 23 unit (0.23 mL) SC HS #5 mL 06/10/23
albuterol sulfate 90 mcg/actuation aerosol inhaler 2 puff inhalation R Q6HPRN PRN sob 03/07/24
budesonide 0.5 mg/2 mL suspension for nebulization 0.5 mg inhalation R BID Lung/Breathing Issues 03/07/24
fluticasone propionate 50 mcg/actuation nasal spray,suspension 2 spray intranasal DAILY Allergies 03/07/24
glipizide 5 mg tablet 5 mg PO DAILY Diabetes 03/07/24
allopurinol 100 mg tablet 200 mg (2 x 100 mg) PO DAILY #60 tabs 03/21/24
furosemide 80 mg tablet 80 mg PO DAILY #30 tabs 03/21/24
insulin aspart U-100 100 unit/mL (3 mL) subcutaneous pen 15 unit (0.15 mL) SC AC #0 mL 03/21/24
lidocaine 4 % topical patch 1 patch topical DAILY@2200 #30 ea 03/21/24
metoprolol succinate 25 mg tablet,extended release 24 hr 25 mg PO DAILY #30 tabs 03/21/24
midodrine 5 mg tablet 5 mg PO Q8H #90 tabs 03/21/24
oxycodone 5 mg tablet 2.5 mg (1/2 x 5 mg) PO Q4HPRN PRN MODERATE PAIN #15 tabs 03/21/24
polyethylene glycol 3350 17 gram oral powder packet (HealthyLax) 17 g PO DAILY #0 ea 03/21/24
prednisone 10 mg tablet 10 mg PO DAILY #18 tabs 03/21/24
Home Medication Changes
Pending Results: No
[2024-03-21] MEDS: DELTASONE 20 MG PO (08:58)
[2024-03-21] MEDS: TOPROL XL 25 MG PO (08:58)
[2024-03-21] MEDS: ELIQUIS 5 MG PO (08:58)
[2024-03-21] MEDS: LOW STRENGTH ASPIRIN 81 MG PO (08:58)
[2024-03-21] MEDS: ZYLOPRIM 200 MG PO (08:58)
[2024-03-21] MEDS: DULCOLAX 5 MG PO (08:58)
[2024-03-21] MEDS: LASIX 80 MG PO (08:58)
[2024-03-21] MEDS: MIRALAX 17 GRAMS PO (08:59)
[2024-03-21] MEDS: PACERONE 200 MG PO (08:59)
[2024-03-21] MEDS: NOVOLOG FLEXPEN 15 UNITS SC ×2 (09:09→12:09)
[2024-03-21] MEDS: NOVOLOG FLEXPEN-MODERATE RESISTANCE 1 UNITS SC (09:09)
[2024-03-21] MEDS: LASIX PO (09:10)
[2024-03-21 11:00] VITALS: BP 134/76
--- NOTE | 2024-03-21 11:28 | W.PN.NEPH.PH ---
Today's Communication / Plan
-
increase lasix
Assessment/Plan
-
Assessment:
CALVIN on CKD (bl Cr 1.3)
s/p cardiac arrest on 03/07 evening
acute on chronic hypoxic/hypercapnic resp failure
COPD
hx of stroke
pAfib
T2DM
Plan:
po lasix 80mg daily to continue
He understands that he can increase lasix to 80mg BID and also add zaroxolyn 2.5mg MWF if weights rise
follow BMP
Remains grossly nonoliguric via Yan
off farxiga still. can restart as outpatient
continue midodrine 5 TID, goal is for SBP ~100
continue allopurinol
dc planning
-
-
Date of Service: March 21, 2024
CC / HPI / ROS
-
Chief Complaint:
alkalosis/CALVIN
History of Present Illness:
CALVIN/Cr down to 1.8
Hemodynamically labile with midodrine support
on steroids for LLE gout
Review of Systems:
feels SOB
no CP
weights up
Yan
Labs
-
Labs:
WBC 13.0 10^3/uL (4.8-10.8) H 03/20/24 12:20
RBC 4.21 10^6/uL (4.70-6.10) L 03/20/24 12:20
Hgb 11.8 g/dL (13.0-18.0) L 03/20/24 12:20
Hct 36.5 % (39.0-52.0) L 03/20/24 12:20
Plt Count 288 10^3/uL (130-400) D 03/20/24 12:20
Sodium 132 mmol/L (135-145) L 03/20/24 12:20
Potassium 4.9 mmol/L (3.5-5.1) 03/20/24 12:20
Chloride 98 mmol/L (98-107) 03/20/24 12:20
Carbon Dioxide 21 mmol/L (22-30) L 03/20/24 12:20
BUN 90 mg/dl (9-20) H 03/20/24 12:20
Creatinine 1.8 mg/dL (0.7-1.3) H 03/20/24 12:20
eGFR 42.03 03/20/24 12:20
Glucose 194 mg/dl (70-99) H 03/20/24 12:20
Calcium 9.5 mg/dl (8.4-10.2) 03/20/24 12:20
Mni-R-Cbwtuymmpok Pept 63396 pg/ml 03/07/24 20:19
Albumin 3.9 g/dl (3.5-5.0) 03/11/24 06:06
Physical Exam
-
Vital Signs:
Vital Signs
Temp Pulse Resp BP Pulse Ox
96.7 F L 64 16 106/69 100
03/21/24 03:00 03/21/24 08:40 03/21/24 08:40 03/21/24 07:00 03/21/24 08:40
Cardiovascular:: Regular rate and rhythm
Respiratory:: Bilateral: Coarse
Lung Excursion:: Normal
Abdomen:: Nontender and Soft
Bowel Sounds:: Normal
Extremity Edema:: +1: Bilateral:
[2024-03-21] MEDS: NOVOLOG FLEXPEN-MODERATE RESISTANCE 3 UNITS SC (12:09)
[2024-03-21 12:12] LABS: Glucose - Point of Care 245 mg/dl (70-99)
--- NOTE | 2024-03-21 12:20 | CM ---
Addendum entered by Samantha Beverly RN 03/21/24 15:46:
Maintained on Bipap or 4 liters oxygen He has noninvasive vent at home.
Obtained correct number for Merced ROJO for [facility] care .She is aware he is dc and will resume care givers.
Obtained correct number for Keshia MURPHY from [facility]. Notified her of pts dc and he needs more care givers time. She said she will evaluate next week.
PLAN Home with [facility] plus private care givers on waiver
Original Note:
MD entered order for discharge.
PT OT said Minimal assist . Pt refused SNF.
Spoke with pt he said he wants [facility] . Referral accepted.
Pt said he has care givers daily x 4 hours.Pt said office on aging radio broadcaster is [phone] Number is wrong . Spoke with [facility] they said waiver is not managed by them.Pt gave waiver CM Keshia number [phone] called [phone]
can not leave message.
Pt requested ambulance transport home. Medical nec form completed
IMM reviewed pt agreed with dc.
Pt said he will call his family.
Pt has a Life Alert device at home.
PLAN Home with [facility]
--- NOTE | 2024-03-21 14:20 | VNURNOTE ---
Home Health Liaison met with patient at bedside to discuss [facility] nurse/therapy, visits, schedule and homebound status. Patient is agreeable and understands that visits at home will be 1-3 x per week to assess and teach medical management. Patient
reports he has home 02 through [facility]. Patient is aware that [facility] will contact them for start of care after discharge from . [facility] referral updated in [facility].
[2024-03-21 15:00] VITALS: BP 160/62
[2024-03-21] MEDS: ROXICODONE 2.5 MG PO (17:20)
[2024-03-21 17:38] LABS: Glucose - Point of Care 151 mg/dl (70-99)
--- NOTE | 2024-03-22 11:11 | W.HF.CON ---
Heart Failure
- LV Function
Left ventricular function study result: LV Ejection fraction </= 35%
Ejection Fraction Percentage: 10-15
- ARNI
Patient already on ARNI: No
Heart Failure ARNI Contraindication: Acute Renal Failure, Hypotension
- ACEI/ARB
Patient already on ACEI/ARB: No
Heart Failure ACEI/ARB Contraindication: Acute Renal Failure, Hypotension
- Beta Isabell
Patient already on Evidence Based Beta Isabell: Yes
- Mineralocorticord Receptor Antagonist
Patient already on MRA: No
Heart Failure MRA Contraindication: Acute Renal Insufficiency, Hypotension
- SGLT-2 Inhibitor
Patient already on SGLT-2 Inhibitor: Yes
- Afib Anticoagulation
Patient already on Anticoagulation for Afib: Yes
- NYHA CHF Classification
NYHA CHF Classification Level: Class III - Symptoms w/ min exertion, interferes w/ nml daily activity
- ACC/AHA Stage
ACC/AHA Stage: Stage D: Advanced Heart Failure
== END 2024-03-21 18:08 | disposition home health service (06) | DRG 286 ==
LOC: 3 WEST ACU 22:18
PROVIDERS: Emergency Medicine; Hospitalist; Internal Medicine Interventional Cardiology; Nurse Practitioner; Nurse Practitioner Family; Nurse Practitioner Primary Care; Specialist; ADMITTING PHYSICIAN Hospitalist; ATTENDING PHYSICIAN Hospitalist; CONSULT PHYSICIAN Internal Medicine Cardiovascular Disease; CONSULT PHYSICIAN Student in an Organized Health Care Education/Training Program; EMERGENCY PHYSICIAN Student in an Organized Health Care Education/Training Program; FAMILY PHYSICIAN Internal Medicine; OTHER PHYSICIAN Internal Medicine
PROC: 5A09357 Assistance with Respiratory Ventilation, Less than 24 Consecutive Hours, Continuous Positive Airway Pressure (ICD-10-PCS; 2024-03-07)
PROC: 5A12012 Performance of Cardiac Output, Single, Manual (ICD-10-PCS; 2024-03-08)
PROC: B2141ZZ Fluoroscopy of Right Heart using Low Osmolar Contrast (ICD-10-PCS; 2024-03-08)
PROC: 4B02XTZ Measurement of Cardiac Defibrillator, External Approach (ICD-10-PCS; 2024-03-08)
PROC: 4A023N6 Measurement of Cardiac Sampling and Pressure, Right Heart, Percutaneous Approach (ICD-10-PCS; 2024-03-08)
DX: I13.0 Hypertensive heart and chronic kidney disease with heart failure and stage 1 through stage 4 chronic kidney disease, or unspecified chronic kidney disease (principal); I46.2 Cardiac arrest due to underlying cardiac condition; I50.23 Acute on chronic systolic (congestive) heart failure; J96.22 Acute and chronic respiratory failure with hypercapnia; J96.21 Acute and chronic respiratory failure with hypoxia; N17.0 Acute kidney failure with tubular necrosis; I47.10 Supraventricular tachycardia, unspecified; Z59.01 Sheltered homelessness; E87.3 Alkalosis; E87.1 Hypo-osmolality and hyponatremia; I5A Non-ischemic myocardial injury (non-traumatic); F17.210 Nicotine dependence, cigarettes, uncomplicated; J44.9 Chronic obstructive pulmonary disease, unspecified; I48.0 Paroxysmal atrial fibrillation; G47.33 Obstructive sleep apnea (adult) (pediatric); E11.22 Type 2 diabetes mellitus with diabetic chronic kidney disease; N18.31 Chronic kidney disease, stage 3a; N40.0 Benign prostatic hyperplasia without lower urinary tract symptoms; I25.5 Ischemic cardiomyopathy; E66.9 Obesity, unspecified; E11.65 Type 2 diabetes mellitus with hyperglycemia; D64.9 Anemia, unspecified; K21.9 Gastro-esophageal reflux disease without esophagitis; R26.2 Difficulty in walking, not elsewhere classified; E87.6 Hypokalemia; M25.572 Pain in left ankle and joints of left foot; M10.9 Gout, unspecified; E87.5 Hyperkalemia; G89.29 Other chronic pain; I25.10 Atherosclerotic heart disease of native coronary artery without angina pectoris; E78.00 Pure hypercholesterolemia, unspecified; I25.2 Old myocardial infarction; Z79.01 Long term (current) use of anticoagulants; Z99.81 Dependence on supplemental oxygen; Z86.74 Personal history of sudden cardiac arrest; Z86.73 Personal history of transient ischemic attack (TIA), and cerebral infarction without residual deficits; Z68.29 Body mass index [BMI] 29.0-29.9, adult; Z79.82 Long term (current) use of aspirin; Z79.4 Long term (current) use of insulin; Z95.810 Presence of automatic (implantable) cardiac defibrillator; Z91.119 Patient's noncompliance with dietary regimen due to unspecified reason; Z91.148 Patient's other noncompliance with medication regimen for other reason
CPT/HCPCS: 93308; 36600; 71045; 73620; 76770; 80048; 80053; 81003; 81015; 82570; 82805; 82962; 83036; 83735; 83880; 84300; 84484; 84550; 85025; 85027; 85610; 85730; 86803; 93005; 93321; 93325; 93451; 94640; 94660; 97116; 97163; 97167; 97530; 99291; C1769; C1894